=== PATIENT | male | born 1950 | race Caucasian/White ===

== ENCOUNTER → 2017-01-03 | Outpatient (CLI) | payer MEDICARE, BC | LOC: MW.CHGS 08:00 | PROVIDERS: ATTEND Surgery | DX: A63.0 Anogenital (venereal) warts (principal) | CPT/HCPCS: G0463 ==

== ENCOUNTER → 2017-01-09 | Outpatient (CLI) | payer MEDICARE, BC ==
[2017-01-09 15:09] LABS: CHLORIDE,CL 103 mmol/L (98-110); SODIUM,NA 140 mmol/L (136-146)
== END | disposition home or self-care (01) ==
LOC: MW.LAB 14:13
PROVIDERS: ATTEND Internal Medicine
DX: I10 Essential (primary) hypertension (principal); E66.9 Obesity, unspecified; I70.1 Atherosclerosis of renal artery
CPT/HCPCS: 36415; 80069; 84244

== ENCOUNTER → 2017-01-30 | Outpatient (CLI) | payer MEDICARE, BC ==
[2017-01-30 15:31] LABS: CHLORIDE,CL 107 mmol/L (98-110); SODIUM,NA 142 mmol/L (136-146)
== END | disposition home or self-care (01) ==
LOC: MW.CHIM 14:39
PROVIDERS: ATTEND Internal Medicine
DX: I10 Essential (primary) hypertension (principal); E66.9 Obesity, unspecified; R73.09 Other abnormal glucose; G47.33 Obstructive sleep apnea (adult) (pediatric); N52.9 Male erectile dysfunction, unspecified; E66.01 Morbid (severe) obesity due to excess calories
CPT/HCPCS: 36415; 80053; 80061; 83036; 99214

== ENCOUNTER 2017-08-28 07:26 | Day surgery (SDC) | payer MEDICARE, BC ==
[2017-08-28] MEDS ORDERED: Bupivacaine 0.25%/EPINEPHrine 1:200,000 10 ML SDV ONE (07:28)
[2017-08-28] MEDS ORDERED: Lidocaine 2% 5 ML SDV ONE (07:29)
[2017-08-28] MEDS ORDERED: fentaNYL 100 MCG/2 ML SDV ONE ×2 (07:30→09:49)
[2017-08-28] MEDS ORDERED: Propofol 200 MG/20 ML SDV ONE ×2 (07:30→08:48)
[2017-08-28] MEDS ORDERED: Midazolam 1 MG/ML 2 ML SDV ONE (07:30)
[2017-08-28] MEDS ORDERED: ceFAZolin 2 GM in Premix Bag 1 BAG IV ONE (08:00)
[2017-08-28] MEDS ORDERED: Lactated Ringers 1,000 ML IV SCH (08:00)
[2017-08-28] MEDS ORDERED: Bupivacaine 0.25%/EPINEPHrine 1:200,000 10 ML SDV INJECT ONE (08:00)
[2017-08-28] MEDS ORDERED: Acetaminophen/HYDROcodone 325-5 MG Tab PO PRN (08:00)
--- NOTE | 2017-08-28 08:07 | PCM.PREANE ---
Preanesthetic Assessment - Anesthesia/Transfusion/Family Hx Anesthesia History: Prior Anesthesia Without Reaction Family History of Anesthesia Reaction: No Transfusion History: No Prior Transfusion(s) - Review of Systems General: No Symptoms Pulmonary: No Symptoms Cardiovascular: No Symptoms Gastrointestinal: No Symptoms Neurological: No Symptoms Other: Reports: None - Physical Assessment NPO Status Date: 08/27/17 NPO Status Time: 22:30 O2 Sat by Pulse Oximetry: 96 Respiratory Rate: 18 Vital Signs: Last Vital Signs Temp 36.6 C 08/28/17 07:42 Pulse 69 08/28/17 07:42 Resp 18 08/28/17 07:42 BP 184/94 H 08/28/17 07:42 Pulse Ox 96 08/28/17 07:42 Height: 1.87 m Weight: 127.913 kg ASA Class: 3 Mental Status: Alert & Oriented x3 Airway Class: Mallampati = 2 Dentition: Reports: Normal Dentition ROM/Head Extension: Full Lungs: Clear to Auscultation, Normal Respiratory Effort Cardiovascular: Regular Rate, Regular Rhythm - Allergies Allergies/Adverse Reactions: Allergies Allergy/AdvReac Type Severity Reaction Status Date / Time labetalol Allergy Dizziness Verified 11/22/16 09:02 tamsulosin Allergy Dizziness Verified 11/22/16 09:02 - Anesthesia Plan Pre-Op Medication Ordered: None - Acknowledgements Anesthesia Type Planned: General Anesthesia Pt an Appropriate Candidate for the Planned Anesthesia: Yes Alternatives and Risks of Anesthesia Discussed w Pt/Guardian: Yes Pt/Guardian Understands and Agrees with Anesthesia Plan: Yes Additional Comments: BP up this am, plan: GET PreAnesthesia Questionnaire - Past Health History Medical/Surgical History: Denies Medical/Surgical History HEENT History: Reports: Other (See Below) Other HEENT History: wears glasses Cardiovascular History: Reports: Hypertension Respiratory History: Reports: Sleep Apnea Other Respiratory History: uses BiPAP Gastrointestinal History: Reports: Colon Polyp Genitourinary History: Reports: BPH Neurological History: Reports: None Psychiatric History: Reports: None Endocrine/Metabolic History: Reports: Obesity/BMI 30+ Hematologic History: Reports: None Oncologic (Cancer) History: Reports: None Dermatologic History: Reports: Other (See Below) Other Dermatologic History: acne - Past Surgical History Head Surgeries/Procedures: Reports: None GI Surgical History: Reports: Colonoscopy, Hernia, Inguinal, Hernia Repair/Other Other GI Surgeries/Procedures: colotomy - SUBSTANCE USE Smoking Status *Q: Never Smoker Second Hand Smoke Exposure: No Days Per Week of Alcohol Use: 3 Number of Drinks Per Day: 3 Total Drinks Per Week: 9 Recreational Drug Use History: No - HOME MEDS Home Medications: Home Meds Ramipril [Altace] 2 tab PO DAILY 11/24/14 [History] amLODIPine Besylate [Amlodipine Besylate] 1 tab PO DAILY 11/24/14 [History] Aspirin [[place] Aspirin] 81 mg PO DAILY 11/22/16 [History] Multivit-Min/FA/Lycopene/Lut [Centrum Silver Tablet] 1 tab PO DAILY 11/22/16 [ History] cloNIDine HCl [Catapres] 0.2 mg PO TID 11/22/16 [History] Clindamycin Phosphate [Cleocin] 1 applic TOP ASDIRECTED PRN 08/26/17 [History] Doxazosin Mesylate [Cardura] 1 mg PO BEDTIME 08/26/17 [History] Viagra 0.25 - 0.5 tab PO ASDIRECTED PRN 08/26/17 [History] - CURRENT (IN HOUSE) MEDS Current Meds: Current Medications Hydrocodone Bitart/Acetaminophen ([place] 325-5 Mg) 1 tab PO Q4H PRN PRN Reason: Pain Cefazolin Sodium/Dextrose 2 gm (/ Premix) 50 mls @ 100 mls/hr IV ONETIME ONE Stop: 08/28/17 08:29 Lactated Ringer's (Ringers, Lactated) 1,000 mls @ 125 mls/hr IV ASDIRECTED LUIS ENRIQUE Last Admin: 08/28/17 07:44 Dose: 125 mls/hr Discontinued Medications Bupivacaine HCl/Epinephrine Bitart ([place] 0.25%/Epinephrine 1:200,000) 10 ml INJECT ONETIME ONE Stop: 08/28/17 08:01 Bupivacaine HCl/Epinephrine Bitart ([place]aine 0.25%/Epinephrine 1:200,000) Confirm Administered Dose 20 ml .ROUTE .STK-MED ONE Stop: 08/28/17 07:29 Fentanyl (Sublimaze) Confirm Administered Dose 200 mcg .ROUTE .STK-MED ONE Stop: 08/28/17 07:31 Lidocaine (Xylocaine-Mpf 2%) Confirm Administered Dose 10 ml .ROUTE .STK-MED ONE Stop: 08/28/17 07:30 Midazolam HCl (Versed 1 Mg/Ml) Confirm Administered Dose 2 mg .ROUTE .STK-MED ONE Stop: 08/28/17 07:31 Propofol (Diprivan 20 Ml) Confirm Administered Dose 400 mg .ROUTE .STK-MED ONE Stop: 08/28/17 07:31
[2017-08-28] MEDS ORDERED: ePHEDrine 50 MG/ML SDV ONE (09:18)
[2017-08-28] MEDS ORDERED: fentaNYL 100 MCG/2 ML SDV IVPUSH PRN (10:20)
--- NOTE | 2017-08-28 10:34 | PCM.POSTAN ---
POST ANESTHESIA ASSESSMENT - MENTAL STATUS Mental Status: Alert, Oriented - RESPIRATORY Respiratory Status: Respiratory Rate WNL, Airway Patent, O2 Saturation Stable - CARDIOVASCULAR CV Status: Pulse Rate WNL, Blood Pressure Stable - GASTROINTESTINAL GI Status: No Symptoms - PAIN Pain Score: 0 - POST OP HYDRATION Hydration Status: Adequate & Stable
[2017-08-28 11:58] VITALS: BP 164/72
--- NOTE | 2017-08-28 12:28 | PCM48HPAN ---
Post Anesthesia Note - EVALUATION WITHIN 48HRS OF ANESTHETIC Vital Signs in Normal Range: Yes Patient Participated in Evaluation: Yes Respiratory Function Stable: Yes Airway Patent: Yes Cardiovascular Function Stable: Yes Hydration Status Stable: Yes Pain Control Satisfactory: Yes Nausea and Vomiting Control Satisfactory: Yes Mental Status Recovered: Yes
--- NOTE | 2017-09-03 08:05 | PCM.OPNOTE ---
- General Post-Op/Procedure Note Date of Surgery/Procedure: 08/28/17 Operative Procedure(s): excision of rhinophyma Pre Op Diagnosis: rhinophyma Post-Op Diagnosis: Same Anesthesia Technique: General ET Tube Primary Surgeon: Ann Darden Manufacturing Helper: Radha Otero Condition: Good Free Text/Narrative:: [id number]
--- NOTE | 2017-09-03 08:19 | OR ---
SURGEON: MARYBEL HWANG MD DATE OF PROCEDURE: 08/28/2017 PREOPERATIVE DIAGNOSIS: Rhinophyma of the nose, significant, causing obstruction of the nasal airway. POSTOPERATIVE DIAGNOSIS: Rhinophyma of the nose, significant, causing obstruction of the nasal airway. PROCEDURE: Excision of nasal rhinophyma with tangential excision. MANGA ARTIST: KACEY Ybarra. ANESTHESIA: General ET tube. INDICATIONS: Mr. 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 He does use BiPAP in order to accommodate for this. He has had significant infections and it drains constantly. Risks and benefits of excision of the rhinophyma were discussed with him and he was in agreement to proceed. Risks were including, but not limited to, bleeding, infection, damage to underlying or overlying structures, possible need for future interventions, possible scarring. PROCEDURE IN DETAIL: After informed consent was obtained and placed on the chart, the patient was brought to the operating theater and laid in the supine position. After adequate general anesthetic was obtained, a time-out was completed to confirm side and site, and the area was infiltrated with local anesthesia. Once adequately infiltrated, attention was then paid to tangential excision of the rhinophyma with a 10 and 15 blade to sculpt appropriately in a stepwise fashion. Once adequately excised and contour was appreciated, meticulous hemostasis was obtained using Bovie electrocautery. Once adequately treated, the wound was then dressed with ointment and Tegaderm for coverage. The patient tolerated this well without exposure of underlying structures. All counts and needles were correct at the end of the case. FOLLOWUP INSTRUCTIONS: The patient will see us in 10 to 14 days or sooner if any problems, questions, or concerns.He was given a script for pain control and wound care instructions. HEGGTHE / MODL /[id number] TATIANNA
== END 2017-08-28 11:55 | disposition home or self-care (01) ==
LOC: MW.SDS 07:26
PROVIDERS: ATTEND Plastic Surgery
DX: L71.1 Rhinophyma (principal); J34.89 Other specified disorders of nose and nasal sinuses; N40.0 Benign prostatic hyperplasia without lower urinary tract symptoms; I10 Essential (primary) hypertension; E66.9 Obesity, unspecified; G47.30 Sleep apnea, unspecified; Z88.8 Allergy status to other drugs, medicaments and biological substances; Z79.82 Long term (current) use of aspirin; Z79.899 Other long term (current) drug therapy; Z98.890 Other specified postprocedural states; Z72.0 Tobacco use; Z68.30 Body mass index [BMI] 30.0-30.9, adult
CPT/HCPCS: 30120; J2250; J3010; J7120; 00300; J2704

== ENCOUNTER 2018-11-28 10:44 | Day surgery (SDC) | payer MEDICARE, BC ==
[~2018-11-28 10:44] MED LIST: Lactated Ringers 1,000 ML IV SCH
--- NOTE | 2018-11-28 11:38 | PCM.PREANE ---
Preanesthetic Assessment - Anesthesia/Transfusion/Family Hx Anesthesia History: Prior Anesthesia Without Reaction Family History of Anesthesia Reaction: No Transfusion History: No Prior Transfusion(s) Intubation History: Unknown - Review of Systems General: No Symptoms Pulmonary: No Symptoms Cardiovascular: No Symptoms Gastrointestinal: No Symptoms, Other (h/o multiple colon polyps and family h/o colon cancer) Neurological: No Symptoms Other: Reports: None - Physical Assessment O2 Sat by Pulse Oximetry: 94 Respiratory Rate: 18 Vital Signs: Last Vital Signs Temp 36.6 C 11/28/18 11:33 Pulse 70 11/28/18 11:33 Resp 18 11/28/18 11:33 BP 185/79 H 11/28/18 11:33 Pulse Ox 94 L 11/28/18 11:33 Height: 1.85 m Weight: 130.181 kg ASA Class: 2 Mental Status: Alert & Oriented x3 Airway Class: Mallampati = 2 Dentition: Reports: Normal Dentition Thyro-Mental Finger Breadths: 3 Mouth Opening Finger Breadths: 2 ROM/Head Extension: Full Lungs: Clear to Auscultation, Normal Respiratory Effort Cardiovascular: Regular Rate, Regular Rhythm - Allergies Allergies/Adverse Reactions: Allergies Allergy/AdvReac Type Severity Reaction Status Date / Time labetalol Allergy Dizziness Verified 11/25/18 10:24 tamsulosin Allergy Cannot Verified 11/25/18 10:24 Remember - Blood Blood Available: No - Anesthesia Plan Pre-Op Medication Ordered: None - Acknowledgements Anesthesia Type Planned: MAC Pt an Appropriate Candidate for the Planned Anesthesia: Yes Alternatives and Risks of Anesthesia Discussed w Pt/Guardian: Yes Pt/Guardian Understands and Agrees with Anesthesia Plan: Yes PreAnesthesia Questionnaire - Past Health History Medical/Surgical History: Denies Medical/Surgical History HEENT History: Reports: Other (See Below) Other HEENT History: wears glasses Cardiovascular History: Reports: Hypertension Respiratory History: Reports: Sleep Apnea Other Respiratory History: uses BiPAP Gastrointestinal History: Reports: Colon Polyp Genitourinary History: Reports: BPH Musculoskeletal History: Reports: Back Pain, Chronic Neurological History: Reports: None Psychiatric History: Reports: None Endocrine/Metabolic History: Reports: Obesity/BMI 30+, Other (See Below) (h/o elevated glucose level) Hematologic History: Reports: None Oncologic (Cancer) History: Reports: None Dermatologic History: Reports: Other (See Below) Other Dermatologic History: acne - Past Surgical History Head Surgeries/Procedures: Reports: None HEENT Surgical History: Reports: Naso-Sinus Surgery Other HEENT Surgeries/Procedures: Rhinoplasty GI Surgical History: Reports: Colonoscopy (x2), Hernia, Inguinal, Hernia Repair/ Other, Other (See Below) Other GI Surgeries/Procedures: Laparotony-colotomy with removal of colon polyps , Incisional hernia repair - SUBSTANCE USE Smoking Status *Q: Never Smoker Recreational Drug Use History: No - HOME MEDS Home Medications: Home Meds Ramipril [Altace] 20 mg PO DAILY 11/24/14 [History] amLODIPine Besylate [Amlodipine Besylate] 10 mg PO QAM 11/24/14 [History] Aspirin [[place] Aspirin EC] 81 mg PO DAILY 11/22/16 [History] Multivit-Min/FA/Lycopene/Lut [Centrum Silver Tablet] 1 tab PO DAILY 11/22/16 [ History] cloNIDine HCl [Catapres] 0.2 mg PO TID 11/22/16 [History] Clindamycin Phosphate [Cleocin] 1 applic TOP ASDIRECTED PRN 08/26/17 [History] Sildenafil Citrate [Sildenafil] 100 mg PO ASDIRECTED PRN 11/25/18 [History] - CURRENT (IN HOUSE) MEDS Current Meds: Current Medications Lactated Ringer's (Ringers, Lactated) 1,000 mls @ 125 mls/hr IV ASDIRECTED LUIS ENRIQUE
[2018-11-28] MEDS ORDERED: Midazolam 1 MG/ML 2 ML SDV ONE (13:32)
[2018-11-28] MEDS ORDERED: fentaNYL 100 MCG/2 ML SDV ONE (13:33)
[2018-11-28] MEDS ORDERED: Propofol 200 MG/20 ML SDV ONE (13:35)
--- NOTE | 2018-11-28 14:30 | PCM.POSTAN ---
POST ANESTHESIA ASSESSMENT - MENTAL STATUS Mental Status: Alert, Oriented - RESPIRATORY Respiratory Status: Respiratory Rate WNL, Airway Patent, O2 Saturation Stable - CARDIOVASCULAR CV Status: Pulse Rate WNL, Blood Pressure Stable - GASTROINTESTINAL GI Status: No Symptoms - PAIN Pain Score: 1 - POST OP HYDRATION Hydration Status: Adequate & Stable - OBSERVATIONS Free Text/Narrative:: no anesthesia problems
--- NOTE | 2018-11-28 14:37 | PCM.OPNOTE ---
- General Post-Op/Procedure Note Date of Surgery/Procedure: 11/28/18 Operative Procedure(s): Colonoscopy with biopsy and tattooing large distal transverse colon polyp. Rectal polypectomies. Pre Op Diagnosis: Personal history of colon polyps. Family history of colon cancer. Post-Op Diagnosis: Adenomatous, transverse colon polyp. Sigmoid diverticulosis. Rectal polyps. Anesthesia Technique: MAC (ASA II) Primary Surgeon: Sharad Lewis Condition: Good Free Text/Narrative:: DICTATION [id number] CPT CODE [id number]
[2018-11-28] MEDS ORDERED: Lactated Ringers 1,000 ML IV SCH (14:45)
--- NOTE | 2018-11-28 15:01 | PCM48HPAN ---
Post Anesthesia Note - EVALUATION WITHIN 48HRS OF ANESTHETIC Vital Signs in Normal Range: Yes Patient Participated in Evaluation: Yes Respiratory Function Stable: Yes Airway Patent: Yes Cardiovascular Function Stable: Yes Hydration Status Stable: Yes Pain Control Satisfactory: Yes Nausea and Vomiting Control Satisfactory: Yes Mental Status Recovered: Yes Resp Rate: 18 - COMMENTS/OBSERVATIONS Free Text/Narrative:: no anesthesia problems
--- NOTE | 2018-11-28 15:30 | OR ---
SURGEON: Sharad Lewis M.D. DATE OF PROCEDURE: 11/28/2018 OPERATIONS PERFORMED: Colonoscopy with biopsy of large transverse colon polyp and rectal polypectomies x2. ANESTHESIA: MAC. ASA CLASSIFICATION: II. PREOPERATIVE DIAGNOSES: 1. Personal history of colon polyps. 2. Family history of colon cancer. 3. Family history of colitis. POSTOPERATIVE DIAGNOSIS: Diverticulosis. DESCRIPTION OF PROCEDURE: The patient was taken to the endoscopy room and positioned on the endoscopy table in the left lateral decubitus position. Time-out was called for appropriate identification of the patient and procedure. Monitored anesthesia care was provided. The colonoscope was inserted into the rectum and advanced with minimal difficulty to the cecum where the colonoscope was retroflexed to visualize the ascending colon from below. The colonoscope was then straightened and slowly withdrawn. Cecum had been identified by internal landmarks and external pressure. The cecum, ascending colon, proximal mid transverse colon showed no tumors, polyps, diverticula, or angiodysplastic changes. One large polyp was encountered in the distal transverse colon. Despite multiple maneuvers, I could never satisfactorily or safely place the snare electrocautery around the polyp to try and remove it. It does appear to have quite a large stalk and I did not feel it was safe to do. He may well require either another colotomy and polypectomy or possibly saline injection polypectomy, which I think it could be done in [place]. Multiple biopsies were obtained and this area was tattooed for easier identification. The remainder of the transverse colon, splenic flexure, and descending colon showed no other tumors, polyps, diverticula, or angiodysplastic changes. Sigmoid colon demonstrates numerous diverticula. No stricture, spasm, or bleeding was noted. The colonoscope was then withdrawn to the rectum where 3 or 4 small polyps were encountered. These were removed with cold biopsy forceps and sent as one specimen. None of these polyps were larger than 2 mm in size. The colonoscope was then retroflexed to visualize the anal orifice from above. No tumors, polyps, or acute hemorrhoidal changes were noted. The colonoscope was then straightened, the rectum aspirated, and the colonoscope removed. The patient tolerated the procedure well. He will come back to the office to discuss the biopsy reports and for referral to a larger center that perhaps can still do a colonoscopic saline injection polypectomy. VANNESSA / VI /[id number]
[2018-11-28 16:24] VITALS: BP 138/72
== END 2018-11-28 15:05 | disposition home or self-care (01) ==
LOC: MW.SDS 10:44
PROVIDERS: ATTEND Surgery
DX: Z12.11 Encounter for screening for malignant neoplasm of colon (principal); D12.3 Benign neoplasm of transverse colon; K63.5 Polyp of colon; K62.1 Rectal polyp; K57.30 Diverticulosis of large intestine without perforation or abscess without bleeding; I10 Essential (primary) hypertension; N40.0 Benign prostatic hyperplasia without lower urinary tract symptoms; E66.9 Obesity, unspecified; Z68.37 Body mass index [BMI] 37.0-37.9, adult; Z86.010 Personal history of colon polyps; Z79.82 Long term (current) use of aspirin; Z79.899 Other long term (current) drug therapy; Z80.0 Family history of malignant neoplasm of digestive organs; Z83.79 Family history of other diseases of the digestive system; Z88.8 Allergy status to other drugs, medicaments and biological substances
CPT/HCPCS: 45380; 45381; J2250; J2704; J3010

== ENCOUNTER 2020-07-16 12:15 | Emergency (ER) | payer MEDICARE, BC ==
[2020-07-16] MEDS ORDERED: Diphtheria,Pertussis(Acell),Tetanus Vaccine 0.5 ML Syringe IM ONE (12:50)
[2020-07-16] MEDS ORDERED: Lidocaine 1% with EPINEPHrine 1:100,000 20 ML MDV INJECT ONE (13:26)
--- NOTE | 2020-07-16 13:47 | EDM.PDOC ---
<Honorio Osei - Last Filed: 07/16/20 13:45> ED HPI GENERAL MEDICAL PROBLEM - General Chief Complaint: Laceration Stated Complaint: CUT LT ELBOW Time Seen by Provider: 07/16/20 12:25 left elbow Pain Score (Numeric/FACES): 1 - Related Data Allergies Allergy/AdvReac Type Severity Reaction Status Date / Time labetalol Allergy Dizziness Verified 07/16/20 12:48 tamsulosin Allergy Cannot Verified 07/16/20 12:48 Remember Home Meds: Home Meds amLODIPine Besylate [Amlodipine Besylate] 10 mg PO QAM 11/24/14 [History] ramipriL [Altace] 20 mg PO DAILY 11/24/14 [History] Aspirin [[place] Aspirin EC] 81 mg PO DAILY 11/22/16 [History] Multivit-Min/FA/Lycopen/Lutein [Centrum Silver Tablet] 1 tab PO DAILY 11/22/16 [History] cloNIDine HCL [Catapres] 0.2 mg PO TID 11/22/16 [History] Clindamycin Phosphate [Cleocin] 1 applic TOP ASDIRECTED PRN 08/26/17 [History] Sildenafil Citrate 100 mg PO ASDIRECTED PRN 11/25/18 [History] Past Medical History - Past Health History Medical/Surgical History: Denies Medical/Surgical History HEENT History: Reports: Other (See Below) Other HEENT History: wears glasses Cardiovascular History: Reports: Hypertension Respiratory History: Reports: Sleep Apnea Other Respiratory History: uses BiPAP Gastrointestinal History: Reports: Colon Polyp Genitourinary History: Reports: BPH Musculoskeletal History: Reports: Back Pain, Chronic Neurological History: Reports: None Psychiatric History: Reports: None Endocrine/Metabolic History: Reports: Obesity/BMI 30+, Other (See Below) Hematologic History: Reports: None Oncologic (Cancer) History: Reports: None Dermatologic History: Reports: Other (See Below) Other Dermatologic History: acne - Past Surgical History Head Surgeries/Procedures: Reports: None HEENT Surgical History: Reports: Naso-Sinus Surgery Other HEENT Surgeries/Procedures: Rhinoplasty GI Surgical History: Reports: Colonoscopy, Hernia, Inguinal, Hernia Repair/Other, Other (See Below) Other GI Surgeries/Procedures: Laparotony-colotomy with removal of colon polyps, Incisional hernia repair Social & Family History - Tobacco Use Smoking Status *Q: Never Smoker - Recreational Drug Use Recreational Drug Use: No Course - Vital Signs Text/Narrative:: Patient was seen by me the wound was anesthetized with 10 mils of 1% lidocaine I then irrigated the wound copiously with normal saline explored it it was then closed with 6 40 simple interrupted sutures no complications patient be discharged home return to the ED in 10 days for suture removal return sooner if redness swelling or pus occurs Departure - Departure Time of Disposition: 13:46 Disposition: Home, Self-Care 01 Condition: Good Clinical Impression: Laceration of elbow Qualifiers: Encounter type: initial encounter Laterality: left Qualified Code(s): S51.012A - Laceration without foreign body of left elbow, initial encounter - Discharge Information *PRESCRIPTION DRUG MONITORING PROGRAM REVIEWED*: Not Applicable *COPY OF PRESCRIPTION DRUG MONITORING REPORT IN PATIENT HARPAL: Not Applicable Instructions: Sutures, [place], or Adhesive Wound Closure, [id number] Referrals: Baldo Carpio MD [Primary Care Provider] - Forms: ED Department Discharge Additional Instructions: The following information is given to patients seen in the emergency department who are being discharged to home. This information is to outline your options for follow-up care. We provide all patients seen in our emergency department with a follow-up referral. The need for follow-up, as well as the timing and circumstances, are variable depending upon the specifics of your emergency department visit. If you don't have a primary care physician on staff, we will provide you with a referral. We always advise you to contact your personal physician following an emergency department visit to inform them of the circumstance of the visit and for follow-up with them and/or the need for any referrals to a consulting specialist. The emergency department will also refer you to a specialist when appropriate. This referral assures that you have the opportunity for follow-up care with a specialist. All of these measure are taken in an effort to provide you with optimal care, which includes your follow-up. Under all circumstances we always encourage you to contact your private physician who remains a resource for coordinating your care. When calling for follow-up care, please make the office aware that this follow-up is from your recent emergency room visit. If for any reason you are refused follow-up, please contact the [facility] Emergency Department at and asked to speak to the emergency department charge nurse. Return to the ED in 10 days for suture removal return earlier if there is redness swelling or pus in the wound 1. Keep the area clean and dry. Continue to monitor for signs of infection as discussed. Sutures to be removed in 7-10 days. 2. Tylenol and/or ibuprofen as directed and as needed for pain management and discomfort. 3. Please follow-up with your primary care provider as discussed. Return to the ED as needed and as discussed. Sepsis Event Note (ED) - Evaluation Sepsis Screening Result: No Definite Risk <Noemi,Melissa - Last Filed: 07/16/20 18:09> ED HPI GENERAL MEDICAL PROBLEM - General Source of Information: Reports: Patient History Limitations: Reports: No Limitations - History of Present Illness INITIAL COMMENTS - FREE TEXT/NARRATIVE: HISTORY AND PHYSICAL: History of present illness: Patient is a 70-year-old male who presents to the ED today with concern of left elbow laceration that occurred just prior to arrival to the ED. Patient states he is not up-to-date on his tetanus. 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 Patient states that he applied pressure to the area immediately and came to the ED. Patient denies any falls or head trauma. Patient denies any other symptoms or concerns. Patient denies fever, chills, chest pain, shortness of breath, or cough. Denies headache, neck stiff ness, change in vision, syncope, or near syncope. Denies nausea, vomiting, abdominal pain, diarrhea, constipation, or dysuria. Has not noted any blood in urine or stool. Patient has been eating and drinking appropriately. Review of systems: As per history of present illness and below otherwise all systems reviewed and negative. Past medical history: As per history of present illness and as reviewed below otherwise noncontribu tory. Surgical history: As per history of present illness and as reviewed below otherwise noncontributory. Social history: See social history for further information Family history: As per history of present illness and as reviewed below otherwise noncontributory. Physical exam: General: Patient is alert, oriented, and in no acute distress. Patient sitting comfortably on exam table. HEENT: Atraumatic, normocephalic, pupils equal and reactive bilaterally, negative for conjunctival pallor or scleral icterus, mucous membranes moist, TMs normal bilaterally, throat clear, neck supple, nontender, trachea midline. No drooling or trismus noted. No meningeal signs. No hot potato voice noted. Lungs: Clear to auscultation, breath sounds equal bilaterally, chest nontender. Heart: S1S2, regular rate and rhythm without overt murmur Abdomen: Soft, nondistended, nontender. Negative for masses or hepatosplenomegaly. Negative for costovertebral tenderness. Pelvis: Stable nontender. Genitourinary: Deferred. Rectal: Deferred. Skin: Intact, warm, dry. No lesions or rashes noted. Extremities: There is a 4 cm subcutaneous laceration of the posterior left elbow without bleeding. Patient has full range of motion of the complete left upper extremity without pain or difficulty. Radial pulses are grossly intact with capillary refill less than 2 seconds. Otherwise, atraumatic, negative for cords or calf pain. Neurovascular unremarkable. Neuro: Awake, alert, oriented. Cranial nerves II through XII unremarkable. Cerebellum unremarkable. Motor and sensory unremarkable throughout. Exam nonfocal. Notes: Discussed importance for follow-up with primary care provider. Voices understanding and is agreeable to plan of care. Denies any further questions or concerns at this time. Diagnostics: None (Xray offered but patient declines) Therapeutics: Sutures (see Dr. Osei procedure note), tdap, lidocaine w epi Prescription: None Impression: Left forearm laceration Plan: 1. Keep the area clean and dry. Continue to monitor for signs of infection as discussed. Sutures to be removed in 7-10 days. 2. Tylenol and/or ibuprofen as directed and as needed for pain management and discomfort. 3. Please follow-up with your primary care provider as discussed. Return to the ED as needed and as discussed. Definitive disposition and diagnosis as appropriate pending reevaluation and review of above. ED ROS GENERAL - Review of Systems Review Of Systems: Comprehensive ROS is negative, except as noted in HPI. ED EXAM, SKIN/RASH Exam: See Below (see dictation) Course - Vital Signs Last Recorded V/S: Last Vital Signs Temp 95.9 F L 07/16/20 14:08 Pulse 59 L 07/16/20 14:08 Resp 16 07/16/20 14:08 BP 163/89 H 07/16/20 14:08 Pulse Ox 96 07/16/20 14:08 - Orders/Labs/Meds Meds: Medications Discontinued Medications Generic Name Dose Route Start Last Admin Trade Name Sam PRN Reason Stop Dose Admin Diphtheria/Tetanus/Acell Pertussis 0.5 ml 07/16/20 12:50 07/16/20 12:59 Adacel IM 07/16/20 12:51 0.5 ml .ONCE ONE Administration Lidocaine HCl Confirm 07/16/20 13:31 07/16/20 16:44 Xylocaine-Mpf 1% Administered 07/16/20 13:32 Not Given Dose 10 ml .ROUTE .STK-MED ONE Lidocaine HCl 10 ml 07/16/20 13:55 07/16/20 16:45 Xylocaine-Mpf 1% INJECT 07/16/20 13:56 10 ml ONETIME ONE Administration Lidocaine/Epinephrine 20 ml 07/16/20 13:26 07/16/20 16:44 Xylocaine 1% With Epinephrine 1:100,000 INJECT 07/16/20 13:27 Not Given ONETIME ONE Sepsis Event Note (ED) - Focused Exam Vital Signs: Vital Signs Temp Pulse Resp BP Pulse Ox 07/16/20 14:08 95.9 F L 59 L 16 163/89 H 96 07/16/20 12:37 96.5 F L 66 16 143/91 H 95
[2020-07-16 14:09] VITALS: BP 163/89; PULSE 59
== END 2020-07-16 14:11 | disposition home or self-care (01) ==
LOC: MW.ED 12:15
DX: S51.012A Laceration without foreign body of left elbow, initial encounter (principal); I10 Essential (primary) hypertension; E66.9 Obesity, unspecified; Z68.36 Body mass index [BMI] 36.0-36.9, adult; Z88.8 Allergy status to other drugs, medicaments and biological substances; Z79.82 Long term (current) use of aspirin; Z79.899 Other long term (current) drug therapy; Z23 Encounter for immunization; W26.8XXA Contact with other sharp object(s), not elsewhere classified, initial encounter
CPT/HCPCS: 12002; 90471; 90715; 99282; J2001

== ENCOUNTER 2021-01-06 20:27 | Inpatient (IN) | payer MEDICARE, BC ==
--- NOTE | 2021-01-06 20:42 | EDM.PDOC ---
ED HPI GENERAL MEDICAL PROBLEM - General Chief Complaint: Abdominal Pain Stated Complaint: POSSIBLE FOOD POISIONING, STOMACH PAIN, PRESSURE Time Seen by Provider: 01/06/21 20:29 Source of Information: Reports: Patient History Limitations: Reports: No Limitations - History of Present Illness INITIAL COMMENTS - FREE TEXT/NARRATIVE: 70-year-old male past medical history hypertension, hyperlipidemia, remote history of unspecified colon surgery presents for 2 days of nausea, vomiting, diarrhea, abdominal cramping pain. Patient assumed initially that it was just food poisoning. He started with nausea and diffuse abdominal cramping pains. He then last night began to develop a couple episodes of vomiting as well as watery diarrhea. Symptoms improved throughout the day and then came back this evening. He denies chest pain, shortness of breath, fevers, dysuria. He does note that he has been urinating less frequently throughout the day and feels dehydrated. He has tried "that chalky medicine that you eat" as well as Colace which do not seem to be improving symptoms. abdomen Pain Score (Numeric/FACES): 7 - Related Data Allergies Allergy/AdvReac Type Severity Reaction Status Date / Time labetalol Allergy Dizziness Verified 01/06/21 20:42 tamsulosin Allergy Cannot Verified 01/06/21 20:42 Remember Home Meds: Home Meds amLODIPine Besylate [Amlodipine Besylate] 10 mg PO QAM 11/24/14 [History] ramipriL [Altace] 20 mg PO DAILY 11/24/14 [History] Aspirin [[place] Aspirin EC] 81 mg PO DAILY 11/22/16 [History] Multivit-Min/FA/Lycopen/Lutein [Centrum Silver Tablet] 1 tab PO DAILY 11/22/16 [History] cloNIDine HCL [Catapres] 0.2 mg PO TID 11/22/16 [History] Sildenafil Citrate 100 mg PO ASDIRECTED PRN 11/25/18 [History] Past Medical History - Past Health History Medical/Surgical History: Denies Medical/Surgical History HEENT History: Reports: Other (See Below) Other HEENT History: wears glasses Cardiovascular History: Reports: Hypertension Respiratory History: Reports: Sleep Apnea Other Respiratory History: uses BiPAP Gastrointestinal History: Reports: Colon Polyp Genitourinary History: Reports: BPH Musculoskeletal History: Reports: Back Pain, Chronic Neurological History: Reports: None Psychiatric History: Reports: None Endocrine/Metabolic History: Reports: Obesity/BMI 30+, Other (See Below) Hematologic History: Reports: None Oncologic (Cancer) History: Reports: None Dermatologic History: Reports: Other (See Below) Other Dermatologic History: acne - Past Surgical History Head Surgeries/Procedures: Reports: None HEENT Surgical History: Reports: Naso-Sinus Surgery Other HEENT Surgeries/Procedures: Rhinoplasty GI Surgical History: Reports: Colonoscopy, Hernia, Inguinal, Hernia Repair/Other, Other (See Below) Other GI Surgeries/Procedures: Laparotony-colotomy with removal of colon polyps, Incisional hernia repair ED ROS GENERAL - Review of Systems Review Of Systems: Comprehensive ROS is negative, except as noted in HPI. ED EXAM, GENERAL - Physical Exam Exam: See Below Exam Limited By: No Limitations General Appearance: Alert, WD/WN, No Apparent Distress Throat/Mouth: Normal Voice, No Airway Compromise Head: Atraumatic, Normocephalic Neck: Normal Inspection Respiratory/Chest: No Respiratory Distress, Lungs Clear, Normal Breath Sounds, No Accessory Muscle Use Cardiovascular: Normal Peripheral Pulses, No Edema, Tachycardia GI/Abdominal: Soft, Distended, Other (diffuse TTP most evident in LUQ) Extremities: Normal Inspection Neurological: Alert Psychiatric: Normal Affect, Anxious Skin Exam: Warm, Dry, Intact, Normal Color #1 Interpretation EKG Date: 01/06/21 Time: 20:59 Rhythm: NSR Rate (Beats/Min): 90 [place]: LAD-Left [place] Deviation P-Wave: Present QRS: Normal ST-T: Normal QT: Normal TX/PQ Interval: 124 Comparison: NA - No Prior EKG EKG Interpretation Comments: no evidence of ischemia, normal EKG Course - Vital Signs Last Recorded V/S: Last Vital Signs Temp 98 F 01/06/21 20:39 Pulse 104 H 01/06/21 20:39 Resp 16 01/06/21 20:39 BP 176/125 H 01/06/21 20:39 Pulse Ox 95 01/06/21 20:39 - Orders/Labs/Meds Orders: Active Orders 24 hr Category Date Time Status Cardiac Monitoring [RC] . DIRECTED Care 01/06/21 20:48 Active EKG Documentation Completion [RC] STAT Care 01/06/21 20:48 Active Gastrointestinal Tube Mgmt [RC] ASDIRECTED Care 01/06/21 23:12 Ordered Pulse Oximetry [RC] ASDIRECTED Care 01/06/21 20:48 Active Chest 1V Frontal [CR] Stat Exams 01/06/21 23:12 Ordered CORONAVIRUS COVID-19 PILI [MOLEC] Stat Lab 01/06/21 23:09 Ordered Sodium Chloride 0.9% [Saline Flush] Med 01/06/21 20:48 Active 10 ml FLUSH ASDIRECTED PRN Sodium Chloride 0.9% [Saline Flush] Med 01/06/21 20:48 Active 2.5 ml FLUSH ASDIRECTED PRN NG [Nasogastric Orogastric Tube Insertion] [OM.PC] Stat Oth 01/06/21 23:12 Ordered Saline Lock Insert [OM.PC] Stat Oth 01/06/21 20:48 Ordered Medication Orders Sodium Chloride (Sodium Chloride 0.9% 10 Ml Syringe) 10 ml FLUSH ASDIRECTED PRN PRN Reason: Keep Vein Open Last Admin: 01/06/21 21:07 Dose: 10 ml Documented by: MAMIE Sodium Chloride (Sodium Chloride 0.9% 2.5 Ml Syringe) 2.5 ml FLUSH ASDIRECTED PRN PRN Reason: Keep Vein Open Last Admin: 01/06/21 21:07 Dose: 2.5 ml Documented by: MAMIE Labs: Laboratory Tests 01/06/21 01/06/21 01/06/21 Range/Units 20:52 21:05 21:05 WBC 11.65 H (4.0-11.0) K/uL RBC 5.43 (4.50-5.90) M/uL Hgb 18.0 H (13.0-17.0) g/dL Hct 49.6 (38.0-50.0) % MCV 91.3 (80.0-98.0) fL MCH 33.1 H (27.0-32.0) pg MCHC 36.3 (31.0-37.0) g/dL RDW Std Deviation 43.1 (28.0-62.0) fl RDW Coeff of Unique 13 (11.0-15.0) % Plt Count 235 (150-400) K/uL MPV 9.50 (7.40-12.00) fL Neut % (Auto) 77.6 (48.0-80.0) % Lymph % (Auto) 8.9 L (16.0-40.0) % [place] % (Auto) 13.0 (0.0-15.0) % Eos % (Auto) 0.4 (0.0-7.0) % Baso % (Auto) 0.1 (0.0-1.5) % Neut # (Auto) 9.0 H (1.4-5.7) K/uL Lymph # (Auto) 1.0 (0.6-2.4) K/uL [place] # (Auto) 1.5 H (0.0-0.8) K/uL Eos # (Auto) 0.1 (0.0-0.7) K/uL Baso # (Auto) 0.0 (0.0-0.1) K/uL Nucleated RBC % 0.0 /100WBC Nucleated RBCs # 0 K/uL Lactate 1.0 (0.20-2.00) mmol/L Sodium (136-148) mmol/L Potassium (3.5-5.1) mmol/L Chloride (98-107) mmol/L Carbon Dioxide (21.0-32.0) mmol/L BUN (7.0-18.0) mg/dL Creatinine (0.8-1.3) mg/dL Est Cr Clr Drug Dosing mL/min Estimated GFR (MDRD) ml/min Glucose (74-106) mg/dL Calcium (8.5-10.1) mg/dL Magnesium (1.8-2.4) mg/dL Total Bilirubin (0.2-1.0) mg/dL AST (15-37) IU/L ALT (14-63) IU/L Alkaline Phosphatase (46-116) U/L Troponin I (0.000-0.056) ng/mL Total Protein (6.4-8.2) g/dL Albumin (3.4-5.0) g/dL Globulin (2.6-4.0) g/dL Albumin/Globulin Ratio (0.9-1.6) Lipase (73-393) U/L Urine Color DARK YELLOW Urine Appearance SLT CLOUDY Urine pH 5.0 (5.0-8.0) Ur Specific [place] 1.025 (1.001-1.035) Urine Protein TRACE H (NEGATIVE) mg/dL Urine Glucose (UA) NEGATIVE (NEGATIVE) mg/dL Urine Ketones 15 H (NEGATIVE) mg/dL Urine Occult Blood NEGATIVE (NEGATIVE) Urine Nitrite NEGATIVE (NEGATIVE) Urine Bilirubin SMALL H (NEGATIVE) Urine Ictotest NEGATIVE Urine Urobilinogen 1.0 (<2.0) EU/dL Ur Leukocyte Esterase TRACE H (NEGATIVE) U Hyaline Cast (Auto) 1-3 (0-2/LPF) Urine RBC 0-1 (0-2/HPF) Urine WBC 6-9 (0-5/HPF) Ur Epithelial Cells FEW (NONE-FEW) Urine Bacteria FEW (NEGATIVE) Urine Mucus LIGHT (NONE-MOD) 01/06/21 Range/Units 21:05 WBC (4.0-11.0) K/uL RBC (4.50-5.90) M/uL Hgb (13.0-17.0) g/dL Hct (38.0-50.0) % MCV (80.0-98.0) fL MCH (27.0-32.0) pg MCHC (31.0-37.0) g/dL RDW Std Deviation (28.0-62.0) fl RDW Coeff of Unique (11.0-15.0) % Plt Count (150-400) K/uL MPV (7.40-12.00) fL Neut % (Auto) (48.0-80.0) % Lymph % (Auto) (16.0-40.0) % [place] % (Auto) (0.0-15.0) % Eos % (Auto) (0.0-7.0) % Baso % (Auto) (0.0-1.5) % Neut # (Auto) (1.4-5.7) K/uL Lymph # (Auto) (0.6-2.4) K/uL [place] # (Auto) (0.0-0.8) K/uL Eos # (Auto) (0.0-0.7) K/uL Baso # (Auto) (0.0-0.1) K/uL Nucleated RBC % /100WBC Nucleated RBCs # K/uL Lactate (0.20-2.00) mmol/L Sodium 139 (136-148) mmol/L Potassium 3.5 (3.5-5.1) mmol/L Chloride 101 (98-107) mmol/L Carbon Dioxide 24.4 (21.0-32.0) mmol/L BUN 19 H (7.0-18.0) mg/dL Creatinine 1.1 (0.8-1.3) mg/dL Est Cr Clr Drug Dosing 70.62 mL/min Estimated GFR (MDRD) > 60.0 ml/min Glucose 128 H (74-106) mg/dL Calcium 8.8 (8.5-10.1) mg/dL Magnesium 1.7 L (1.8-2.4) mg/dL Total Bilirubin 1.8 H (0.2-1.0) mg/dL AST 15 (15-37) IU/L ALT 29 (14-63) IU/L Alkaline Phosphatase 59 (46-116) U/L Troponin I < 0.050 (0.000-0.056) ng/mL Total Protein 8.3 H (6.4-8.2) g/dL Albumin 3.8 (3.4-5.0) g/dL Globulin 4.5 H (2.6-4.0) g/dL Albumin/Globulin Ratio 0.8 L (0.9-1.6) Lipase 89 (73-393) U/L Urine Color Urine Appearance Urine pH (5.0-8.0) Ur Specific [place] (1.001-1.035) Urine Protein (NEGATIVE) mg/dL Urine Glucose (UA) (NEGATIVE) mg/dL Urine Ketones (NEGATIVE) mg/dL Urine Occult Blood (NEGATIVE) Urine Nitrite (NEGATIVE) Urine Bilirubin (NEGATIVE) Urine Ictotest Urine Urobilinogen (<2.0) EU/dL Ur Leukocyte Esterase (NEGATIVE) U Hyaline Cast (Auto) (0-2/LPF) Urine RBC (0-2/HPF) Urine WBC (0-5/HPF) Ur Epithelial Cells (NONE-FEW) Urine Bacteria (NEGATIVE) Urine Mucus (NONE-MOD) Meds: Medications Generic Name Dose Route Start Last Admin Trade Name Freq PRN Reason Stop Dose Admin Sodium Chloride 10 ml 01/06/21 20:48 01/06/21 21:07 Sodium Chloride 0.9% 10 Ml Syringe FLUSH 10 ml ASDIRECTED PRN Administration Keep Vein Open Sodium Chloride 2.5 ml 01/06/21 20:48 01/06/21 21:07 Sodium Chloride 0.9% 2.5 Ml Syringe FLUSH 2.5 ml ASDIRECTED PRN Administration Keep Vein Open Discontinued Medications Generic Name Dose Route Start Last Admin Trade Name Sam PRN Reason Stop Dose Admin Al Hydroxide/Mg Hydroxide 15 0 ml 01/06/21 20:48 01/06/21 21:07 ml/ Lidocaine HCl 5 ml PO 01/06/21 20:49 1 each ONETIME ONE Administration Famotidine 20 mg 01/06/21 20:48 01/06/21 21:07 Famotidine 20 Mg/2 Ml Sdv IVPUSH 01/06/21 20:49 20 mg ONETIME ONE Administration Sodium Chloride 1,000 mls @ 999 mls/hr 01/06/21 20:48 01/06/21 21:07 Normal Saline IV 01/06/21 21:48 999 mls/hr .Bolus ONE Administration Iopamidol 100 ml 01/06/21 22:09 01/06/21 22:10 Iopamidol 755 Mg/Ml 500 Ml Multipack Bottle IVPUSH 01/06/21 22:10 100 ml ONETIME STA Administration Morphine Sulfate 4 mg 01/06/21 20:48 01/06/21 21:07 Morphine 4 Mg/Ml Syringe IVPUSH 01/06/21 20:49 4 mg ONETIME ONE Administration Ondansetron HCl 4 mg 01/06/21 20:48 01/06/21 21:07 Ondansetron 4 Mg/2 Ml Sdv IVPUSH 01/06/21 20:49 4 mg ONETIME ONE Administration - Re-Assessments/Exams Free Text/Narrative Re-Assessment/Exam: 01/06/21 20:52 Patient presents with abdominal pain. Will get labs and imaging. Will give IV fluid bolus, Pepcid, Zofran, morphine, GI cocktail while working up. 01/06/21 23:13 CT imaging is remarkable for small bowel obstruction. Spoke with Dr. Lewis who agrees to consult for general surgery. Spoke with Dr. Grimm who agrees to admit under hospitalist service. Will place NG tube. COVID-19 test is pending Departure - Departure Time of Disposition: 23:13 Disposition: Admitted As Inpatient 66 Condition: Good Clinical Impression: Small bowel obstruction - Discharge Information Referrals: Baldo Carpio MD [Primary Care Provider] - Forms: ED Department Discharge Sepsis Event Note (ED) - Evaluation Sepsis Screening Result: No Definite Risk - Focused Exam Vital Signs: Vital Signs Temp Pulse Resp BP Pulse Ox 01/06/21 20:39 98 F 104 H 16 176/125 H 95 - My Orders Last 24 Hours: My Active Orders 01/06/21 20:48 Cardiac Monitoring [RC] . DIRECTED EKG Documentation Completion [RC] STAT Pulse Oximetry [RC] ASDIRECTED Sodium Chloride 0.9% [Saline Flush] 10 ml FLUSH ASDIRECTED PRN Sodium Chloride 0.9% [Saline Flush] 2.5 ml FLUSH ASDIRECTED PRN Saline Lock Insert [OM.PC] Stat 01/06/21 23:09 CORONAVIRUS COVID-19 PILI [MOLEC] Stat 01/06/21 23:12 Gastrointestinal Tube Mgmt [RC] ASDIRECTED Chest 1V Frontal [CR] Stat NG [Nasogastric Orogastric Tube Insertion] [OM.PC] Stat - Assessment/Plan Last 24 Hours: My Active Orders 01/06/21 20:48 Cardiac Monitoring [RC] . DIRECTED EKG Documentation Completion [RC] STAT Pulse Oximetry [RC] ASDIRECTED Sodium Chloride 0.9% [Saline Flush] 10 ml FLUSH ASDIRECTED PRN Sodium Chloride 0.9% [Saline Flush] 2.5 ml FLUSH ASDIRECTED PRN Saline Lock Insert [OM.PC] Stat 01/06/21 23:09 CORONAVIRUS COVID-19 PILI [MOLEC] Stat 01/06/21 23:12 Gastrointestinal Tube Mgmt [RC] ASDIRECTED Chest 1V Frontal [CR] Stat NG [Nasogastric Orogastric Tube Insertion] [OM.PC] Stat
[2021-01-06] MEDS ORDERED: Morphine 4 MG/ML Syringe IVPUSH ONE (20:48)
[2021-01-06] MEDS ORDERED: Sodium Chloride 0.9% 1,000 ML IV ONE (20:48)
[2021-01-06] MEDS ORDERED: Sodium Chloride 0.9% 10 ML Syringe FLUSH PRN (20:48)
[2021-01-06] MEDS ORDERED: Ondansetron 4 MG/2 ML SDV IVPUSH ONE (20:48)
[2021-01-06] MEDS ORDERED: Famotidine 20 MG/2 ML SDV IVPUSH ONE (20:48)
[2021-01-06] MEDS ORDERED: Alum Hydrox/Mag Hydrox/Simeth 15 ML, Lidocaine 2% 5 ML PO ONE ×2 (20:48)
[2021-01-06] MEDS: Sodium Chloride 0.9% 2.5 ML Syringe FLUSH PRN (21:07)
[2021-01-06 21:33] LABS: BLOOD UREA NITROGEN,BUN 19 mg/dL (7.0-18.0); CARBON DIOXIDE,CO2 24.4 mmol/L (21.0-32.0); CHLORIDE,CL 101 mmol/L (98-107); GLUCOSE RANDOM 128 mg/dL (74-106); LIPASE 89 U/L (73-393); POTASSIUM,K 3.5 mmol/L (3.5-5.1); SODIUM,NA 139 mmol/L (136-148)
[2021-01-06] MEDS ORDERED: Iopamidol 755 MG/ML 500 ML Multipack Bottle IVPUSH STA (22:09)
--- NOTE | 2021-01-06 22:50 | CT ---
INDICATION: Abdominal pain, nausea, vomiting, diarrhea for 2 days TECHNIQUE: CT abdomen and pelvis acquired with 100 cc Isovue 370 IV contrast. COMPARISON: None FINDINGS: Lower chest: Linear atelectasis at the right lung base. Liver: Hepatic steatosis. Simple cysts in the liver. Spleen: Unremarkable. Gallbladder and bile ducts: Unremarkable. Adrenal glands: Unremarkable. Kidneys: Simple cysts on both kidneys. The largest cyst on the right kidney and measures 8.5 cm. There are bilateral nonobstructive renal stones measuring no more than 3 mm in size. GI tract and pancreas: There is a 5.9 x 4.4 cm cystic lesion which directly abuts the inferior margin of the distal gastric body. There is no discernible wall around this cystic structure. There is no mass effect on the adjacent stomach. A small portion of this cystic structure also touches the superior portion of the proximal pancreatic body. Remainder of the pancreas is normal in appearance. There are multiple loops of fluid-filled, mildly dilated small-bowel that reach a maximum diameter of 3.1 cm. A definite transition point is not identified. There does not appear to be incarceration of a small-bowel loop within any of the ventral hernias. There is no free air or pneumatosis. The more distal small bowel is collapsed as is the colon. Vascular structures: Unremarkable. Lymph nodes: Unremarkable. Miscellaneous: Status post ventral herniorrhaphy with mesh. There are multiple small ventral hernias on either side of the mesh. Some of these contain normal appearing loops of bowel. Other hernias contain only fat. Pelvic Organs: Small amount of simple free fluid in the pelvis. Bones: Unremarkable for age. IMPRESSION: Small-bowel obstruction. A definite transition point is not seen. Note that there are multiple small ventral hernias that contain bowel. The bowel obstruction does not appear to be due to incarceration of the bowel loop within one of the ventral hernias. Small amount of free fluid in the pelvis. Cystic lesion adjacent to the stomach and pancreas. 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 Recommend comparison with any prior imaging. If no prior imaging is available, consider nonemergent upper abdominal MRI for further characterization. Bilateral nonobstructive nephrolithiasis. Hepatic steatosis. Postoperative changes of ventral herniorrhaphy with mesh placement. Please note that all CT scans at this facility use dose modulation, iterative reconstruction, and/or weight-based dosing when appropriate to reduce radiation dose to as low as reasonably achievable. Dictated by Radha Muro MD @ Jan 06 2021 10:48PM Signed by Dr. Radha Muro @ Jan 06 2021 10:48PM
--- NOTE | 2021-01-06 23:55 | CR ---
Indication: NG tube placement Technique: Portable upright AP view of the chest Comparison: CT abdomen pelvis 01/06/2021 Findings/Impression: 1. Distal end of a gastric tube terminates at the gastroesophageal junction. Consider advancing by about 10 cm with follow-up abdominal radiograph to confirm adequate placement. 2. Focal opacity in the right lung base corresponds to atelectatic changes seen on CT. The lungs are otherwise clear. 3. The cardiomediastinal silhouette is normal. There is no pleural effusion or pneumothorax. Dictated by Dominguez Rolle MD @ Jan 06 2021 11:54PM Signed by Dr. Dominguez Rolle @ Jan 06 2021 11:54PM
[2021-01-07] MEDS ORDERED: Ondansetron 4 MG/2 ML SDV IVPUSH PRN (01:26)
[2021-01-07] MEDS: Sodium Chloride 0.9% 1,000 ML IV SCH ×4 (01:53→22:12)
[2021-01-07 06:43] LABS: BLOOD UREA NITROGEN,BUN 14 mg/dL (7.0-18.0); CARBON DIOXIDE,CO2 26.3 mmol/L (21.0-32.0); CHLORIDE,CL 104 mmol/L (98-107); GLUCOSE RANDOM 99 mg/dL (74-106); POTASSIUM,K 3.5 mmol/L (3.5-5.1); SODIUM,NA 142 mmol/L (136-148)
[2021-01-07] MEDS ORDERED: Magnesium Sulfate/Water 2 GM/50 ML BAG IV ONE (07:14)
--- NOTE | 2021-01-07 07:17 | PCM.HP.2 ---
H&P History of Present Illness - General Date of Service: 01/07/21 Admit Problem/Dx: Admission Diagnosis/Problem Admission Diagnosis/Problem Small bowel obstruction - History of Present Illness Initial Comments - Free Text/Narative: 70 year old male admitted to the medical unit for management of small bowel obstruction. Patient has past medical history including hypertension, hyperlipidemia past surgical history including removal of large colon polyps ventral hernia repair with past medical history of hypertension. Patient denies diabetes, or any other respiratory conditions. Patient states he began to have, abdominal pain, nausea 2 days ago on 01-05-21 and initially assumed that his symptoms were due to food poisoning. Patient states the pain increased in the last 2 days at which time he presents to the ED with nausea vomiting, abdominal pain. CT abdomenpelvis performed in the ED showed mild small bowel obstruction without a definite transition point, with no incarcerations of bowel noted. Whi te blood cell 6.0, normal lactic acid, CMP within normal limits. Hypomagnesemia noted with a magnesium of 1.7. Patient does currently take amlodipine, ramipril, clonidine for hypertension. Oral medications cannot be started due to NG tube placement. Patient started on IV enalaprilat 1.25mg for blood pressure management. Patient made n.p.o. status, start IV fluids, morphine for pain, Zofran for nausea, NG tube placed for decompression, 2 g magnesium sulfate for hypomagnesemia. abdomen Pain Score (Numeric/FACES): 7 - Related Data Allergies/Adverse Reactions: Allergies Allergy/AdvReac Type Severity Reaction Status Date / Time labetalol Allergy Dizziness Verified 01/07/21 03:32 tamsulosin Allergy Cannot Verified 01/07/21 03:32 Remember Home Medications: Home Meds amLODIPine Besylate [Amlodipine Besylate] 10 mg PO QAM 11/24/14 [History] ramipriL [Altace] 20 mg PO DAILY 11/24/14 [History] Aspirin [[place] Aspirin EC] 81 mg PO DAILY 11/22/16 [History] Multivit-Min/FA/Lycopen/Lutein [Centrum Silver Tablet] 1 tab PO DAILY 11/22/16 [History] cloNIDine HCL [Catapres] 0.2 mg PO TID 11/22/16 [History] Sildenafil Citrate 50 mg PO ASDIRECTED PRN 11/25/18 [History] Past Medical History - Past Health History Medical/Surgical History: Denies Medical/Surgical History HEENT History: Reports: Other (See Below) Other HEENT History: wears glasses Cardiovascular History: Reports: Hypertension Respiratory History: Reports: Sleep Apnea Other Respiratory History: uses BiPAP Gastrointestinal History: Reports: Colon Polyp Genitourinary History: Reports: BPH Musculoskeletal History: Reports: Back Pain, Chronic Neurological History: Reports: None Psychiatric History: Reports: None Endocrine/Metabolic History: Reports: Obesity/BMI 30+, Other (See Below) Hematologic History: Reports: None Oncologic (Cancer) History: Reports: None Dermatologic History: Reports: Other (See Below) Other Dermatologic History: acne - Past Surgical History Head Surgeries/Procedures: Reports: None HEENT Surgical History: Reports: Naso-Sinus Surgery Other HEENT Surgeries/Procedures: Rhinoplasty GI Surgical History: Reports: Colonoscopy, Hernia, Inguinal, Hernia Repair/Other, Other (See Below) Other GI Surgeries/Procedures: Laparotony-colotomy with removal of colon polyps, Incisional hernia repair Social & Family History - Tobacco Use Tobacco Use Status *Q: Never Tobacco User - Caffeine Use Caffeine Use: Reports: Coffee - Recreational Drug Use Recreational Drug Use: No H&P Review of Systems - Review of Systems: Review Of Systems: See Below General: Denies: Fever Pulmonary: Denies: Shortness of Breath, Wheezing Cardiovascular: Denies: Chest Pain Gastrointestinal: Reports: Abdominal Pain, Distension. Denies: Nausea, Vomiting Neurological: Denies: Confusion Exam - Exam Exam: See Below - Vital Signs Vital Signs: Last Vital Signs Temp 98.1 F 01/07/21 05:31 Pulse 78 01/07/21 05:31 Resp 18 01/07/21 05:31 BP 165/85 H 01/07/21 05:31 Pulse Ox 95 01/07/21 05:31 Weight: 276 lb 4.815 oz - Exam Quality Assessment: No: Supplemental Oxygen General: Alert, Oriented Lungs: Clear to Auscultation, Normal Respiratory Effort Cardiovascular: Regular Rate, Regular Rhythm GI/Abdominal Exam: Non-Tender Neuro Extensive - Mental Status: Alert, Oriented x3 - Patient Data Lab Results Last 24 hrs: Laboratory Results - last 24 hr 01/06/21 01/06/21 01/06/21 Range/Units 20:52 21:05 21:05 WBC 11.65 H (4.0-11.0) K/uL RBC 5.43 (4.50-5.90) M/uL Hgb 18.0 H (13.0-17.0) g/dL Hct 49.6 (38.0-50.0) % MCV 91.3 (80.0-98.0) fL MCH 33.1 H (27.0-32.0) pg MCHC 36.3 (31.0-37.0) g/dL RDW Std Deviation 43.1 (28.0-62.0) fl RDW Coeff of Unique 13 (11.0-15.0) % Plt Count 235 (150-400) K/uL MPV 9.50 (7.40-12.00) fL Neut % (Auto) 77.6 (48.0-80.0) % Lymph % (Auto) 8.9 L (16.0-40.0) % [place] % (Auto) 13.0 (0.0-15.0) % Eos % (Auto) 0.4 (0.0-7.0) % Baso % (Auto) 0.1 (0.0-1.5) % Neut # (Auto) 9.0 H (1.4-5.7) K/uL Lymph # (Auto) 1.0 (0.6-2.4) K/uL [place] # (Auto) 1.5 H (0.0-0.8) K/uL Eos # (Auto) 0.1 (0.0-0.7) K/uL Baso # (Auto) 0.0 (0.0-0.1) K/uL Nucleated RBC % 0.0 /100WBC Nucleated RBCs # 0 K/uL Lactate 1.0 (0.20-2.00) mmol/L Sodium (136-148) mmol/L Potassium (3.5-5.1) mmol/L Chloride (98-107) mmol/L Carbon Dioxide (21.0-32.0) mmol/L BUN (7.0-18.0) mg/dL Creatinine (0.8-1.3) mg/dL Est Cr Clr Drug Dosing mL/min Estimated GFR (MDRD) ml/min Glucose (74-106) mg/dL Calcium (8.5-10.1) mg/dL Magnesium (1.8-2.4) mg/dL Total Bilirubin (0.2-1.0) mg/dL AST (15-37) IU/L ALT (14-63) IU/L Alkaline Phosphatase (46-116) U/L Troponin I (0.000-0.056) ng/mL Total Protein (6.4-8.2) g/dL Albumin (3.4-5.0) g/dL Globulin (2.6-4.0) g/dL Albumin/Globulin Ratio (0.9-1.6) Lipase (73-393) U/L Urine Color DARK YELLOW Urine Appearance SLT CLOUDY Urine pH 5.0 (5.0-8.0) Ur Specific [place] 1.025 (1.001-1.035) Urine Protein TRACE H (NEGATIVE) mg/dL Urine Glucose (UA) NEGATIVE (NEGATIVE) mg/dL Urine Ketones 15 H (NEGATIVE) mg/dL Urine Occult Blood NEGATIVE (NEGATIVE) Urine Nitrite NEGATIVE (NEGATIVE) Urine Bilirubin SMALL H (NEGATIVE) Urine Ictotest NEGATIVE Urine Urobilinogen 1.0 (<2.0) EU/dL Ur Leukocyte Esterase TRACE H (NEGATIVE) U Hyaline Cast (Auto) 1-3 (0-2/LPF) Urine RBC 0-1 (0-2/HPF) Urine WBC 6-9 (0-5/HPF) Ur Epithelial Cells FEW (NONE-FEW) Urine Bacteria FEW (NEGATIVE) Urine Mucus LIGHT (NONE-MOD) SARS-CoV-2 RNA (PILI) (NEGATIVE) 01/06/21 01/06/21 01/07/21 Range/Units 21:05 23:10 05:48 WBC 6.51 (4.0-11.0) K/uL RBC 5.09 (4.50-5.90) M/uL Hgb 16.6 (13.0-17.0) g/dL Hct 47.1 (38.0-50.0) % MCV 92.5 (80.0-98.0) fL MCH 32.6 H (27.0-32.0) pg MCHC 35.2 (31.0-37.0) g/dL RDW Std Deviation 44.2 (28.0-62.0) fl RDW Coeff of Unique 13 (11.0-15.0) % Plt Count 215 (150-400) K/uL MPV 9.90 (7.40-12.00) fL Neut % (Auto) 54.4 (48.0-80.0) % Lymph % (Auto) 24.7 (16.0-40.0) % [place] % (Auto) 18.7 H (0.0-15.0) % Eos % (Auto) 2.0 (0.0-7.0) % Baso % (Auto) 0.2 (0.0-1.5) % Neut # (Auto) 3.5 (1.4-5.7) K/uL Lymph # (Auto) 1.6 (0.6-2.4) K/uL [place] # (Auto) 1.2 H (0.0-0.8) K/uL Eos # (Auto) 0.1 (0.0-0.7) K/uL Baso # (Auto) 0.0 (0.0-0.1) K/uL Nucleated RBC % 0.0 /100WBC Nucleated RBCs # 0 K/uL Lactate (0.20-2.00) mmol/L Sodium 139 (136-148) mmol/L Potassium 3.5 (3.5-5.1) mmol/L Chloride 101 (98-107) mmol/L Carbon Dioxide 24.4 (21.0-32.0) mmol/L BUN 19 H (7.0-18.0) mg/dL Creatinine 1.1 (0.8-1.3) mg/dL Est Cr Clr Drug Dosing 70.62 mL/min Estimated GFR (MDRD) > 60.0 ml/min Glucose 128 H (74-106) mg/dL Calcium 8.8 (8.5-10.1) mg/dL Magnesium 1.7 L (1.8-2.4) mg/dL Total Bilirubin 1.8 H (0.2-1.0) mg/dL AST 15 (15-37) IU/L ALT 29 (14-63) IU/L Alkaline Phosphatase 59 (46-116) U/L Troponin I < 0.050 (0.000-0.056) ng/mL Total Protein 8.3 H (6.4-8.2) g/dL Albumin 3.8 (3.4-5.0) g/dL Globulin 4.5 H (2.6-4.0) g/dL Albumin/Globulin Ratio 0.8 L (0.9-1.6) Lipase 89 (73-393) U/L Urine Color Urine Appearance Urine pH (5.0-8.0) Ur Specific [place] (1.001-1.035) Urine Protein (NEGATIVE) mg/dL Urine Glucose (UA) (NEGATIVE) mg/dL Urine Ketones (NEGATIVE) mg/dL Urine Occult Blood (NEGATIVE) Urine Nitrite (NEGATIVE) Urine Bilirubin (NEGATIVE) Urine Ictotest Urine Urobilinogen (<2.0) EU/dL Ur Leukocyte Esterase (NEGATIVE) U Hyaline Cast (Auto) (0-2/LPF) Urine RBC (0-2/HPF) Urine WBC (0-5/HPF) Ur Epithelial Cells (NONE-FEW) Urine Bacteria (NEGATIVE) Urine Mucus (NONE-MOD) SARS-CoV-2 RNA (PILI) NEGATIVE (NEGATIVE) 01/07/21 Range/Units 05:48 WBC (4.0-11.0) K/uL RBC (4.50-5.90) M/uL Hgb (13.0-17.0) g/dL Hct (38.0-50.0) % MCV (80.0-98.0) fL MCH (27.0-32.0) pg MCHC (31.0-37.0) g/dL RDW Std Deviation (28.0-62.0) fl RDW Coeff of Unique (11.0-15.0) % Plt Count (150-400) K/uL MPV (7.40-12.00) fL Neut % (Auto) (48.0-80.0) % Lymph % (Auto) (16.0-40.0) % [place] % (Auto) (0.0-15.0) % Eos % (Auto) (0.0-7.0) % Baso % (Auto) (0.0-1.5) % Neut # (Auto) (1.4-5.7) K/uL Lymph # (Auto) (0.6-2.4) K/uL [place] # (Auto) (0.0-0.8) K/uL Eos # (Auto) (0.0-0.7) K/uL Baso # (Auto) (0.0-0.1) K/uL Nucleated RBC % /100WBC Nucleated RBCs # K/uL Lactate (0.20-2.00) mmol/L Sodium 142 (136-148) mmol/L Potassium 3.5 (3.5-5.1) mmol/L Chloride 104 (98-107) mmol/L Carbon Dioxide 26.3 (21.0-32.0) mmol/L BUN 14 (7.0-18.0) mg/dL Creatinine 0.9 (0.8-1.3) mg/dL Est Cr Clr Drug Dosing 85.90 mL/min Estimated GFR (MDRD) > 60.0 ml/min Glucose 99 (74-106) mg/dL Calcium 8.2 L (8.5-10.1) mg/dL Magnesium (1.8-2.4) mg/dL Total Bilirubin 1.4 H (0.2-1.0) mg/dL AST 17 (15-37) IU/L ALT 27 (14-63) IU/L Alkaline Phosphatase 51 (46-116) U/L Troponin I (0.000-0.056) ng/mL Total Protein 7.4 (6.4-8.2) g/dL Albumin 3.4 (3.4-5.0) g/dL Globulin 4.0 (2.6-4.0) g/dL Albumin/Globulin Ratio 0.9 (0.9-1.6) Lipase (73-393) U/L Urine Color Urine Appearance Urine pH (5.0-8.0) Ur Specific [place] (1.001-1.035) Urine Protein (NEGATIVE) mg/dL Urine Glucose (UA) (NEGATIVE) mg/dL Urine Ketones (NEGATIVE) mg/dL Urine Occult Blood (NEGATIVE) Urine Nitrite (NEGATIVE) Urine Bilirubin (NEGATIVE) Urine Ictotest Urine Urobilinogen (<2.0) EU/dL Ur Leukocyte Esterase (NEGATIVE) U Hyaline Cast (Auto) (0-2/LPF) Urine RBC (0-2/HPF) Urine WBC (0-5/HPF) Ur Epithelial Cells (NONE-FEW) Urine Bacteria (NEGATIVE) Urine Mucus (NONE-MOD) SARS-CoV-2 RNA (PILI) (NEGATIVE) Result Diagrams: 01/07/21 05:48 01/07/21 05:48 Sepsis Event Note - Evaluation Sepsis Screening Result: No Definite Risk - Focused Exam Vital Signs: Vital Signs Temp Pulse Resp BP Pulse Ox 01/07/21 05:31 98.1 F 78 18 165/85 H 95 01/07/21 03:31 96 01/07/21 01:17 97.3 F 90 18 168/92 H 95 01/07/21 00:42 86 162/86 H 92 L 01/06/21 23:42 89 178/88 H 92 L 01/06/21 23:12 81 165/92 H 94 L 01/06/21 22:42 78 157/85 H 91 L 01/06/21 22:13 87 143/76 H 90 L 01/06/21 21:12 90 189/103 H 93 L 01/06/21 20:39 98 F 104 H 16 176/125 H 95 - Problem List (1) Hypertension SNOMED Code(s): 95183717 ICD Code: I10 - ESSENTIAL (PRIMARY) HYPERTENSION Status: Acute Current Visit: Yes (2) Small bowel obstruction SNOMED Code(s): 928662065 ICD Code: K56.609 - UNSP INTESTNL OBST, UNSP TO PARTIAL VERSUS COMPLETE OBST Status: Acute Priority: Medium Current Visit: Yes Problem List Initiated/Reviewed/Updated: Yes Orders Last 24hrs: Active Orders 24 hr Category Date Time Status Patient Status [ADT] Routine ADT 01/06/21 23:14 Active BIPAP Adult [RT BiPAP/CPAP] [RC] ASDIRECTED Care 01/07/21 01:32 Active Cardiac Monitoring [RC] . DIRECTED Care 01/06/21 20:48 Active EKG Documentation Completion [RC] STAT Care 01/06/21 20:48 Active Gastrointestinal Tube Mgmt [RC] ASDIRECTED Care 01/06/21 23:12 Active Nasogastric Tube Management [Gastrointestinal Tube Mgmt Care 01/07/21 01:30 Active ] [RC] ASDIRECTED Pulse Oximetry [RC] ASDIRECTED Care 01/06/21 20:48 Active Telemetry Monitoring [Cardiac Monitoring] [RC] Q8H Care 01/07/21 00:27 Active NPO [Nothing Per Oral Diet] [DIET] Diet 01/07/21 Breakfast Active Magnesium Sulfate 2 GM ONETIME Med 01/07/21 07:14 Ordered Magnesium Sulfate/Water [Magnesium Sulfate in Water 2 GM/50 ML] 2 gm in 50 ml IV ONETIME Morphine Med 01/07/21 01:24 Active 2 mg IVPUSH Q3H PRN Ondansetron [Zofran] Med 01/07/21 01:26 Active 4 mg IVPUSH Q4H PRN Sodium Chloride 0.9% [Normal Saline] 1,000 ml Med 01/07/21 01:30 Active IV ASDIRECTED Sodium Chloride 0.9% [Saline Flush] Med 01/06/21 20:48 Active 10 ml FLUSH ASDIRECTED PRN Sodium Chloride 0.9% [Saline Flush] Med 01/06/21 20:48 Active 2.5 ml FLUSH ASDIRECTED PRN NG [Nasogastric Orogastric Tube Insertion] [OM.PC] Stat Oth 01/06/21 23:12 Ordered Saline Lock Insert [OM.PC] Stat Ot 01/06/21 20:48 Ordered Medication Orders Sodium Chloride (Normal Saline) 1,000 mls @ 125 mls/hr IV ASDIRECTED LUIS ENRIQUE Last Admin: 01/07/21 01:53 Dose: 125 mls/hr Documented by: JENNI Magnesium Sulfate (Magnesium Sulfate In Water 2 Gm/50 Ml) 2 gm in 50 mls @ 50 mls/hr IV ONETIME ONE Stop: 01/07/21 08:13 Morphine Sulfate (Morphine 2 Mg/Ml Syringe) 2 mg IVPUSH Q3H PRN PRN Reason: Pain Ondansetron HCl (Ondansetron 4 Mg/2 Ml Sdv) 4 mg IVPUSH Q4H PRN PRN Reason: Nausea/Vomiting Sodium Chloride (Sodium Chloride 0.9% 10 Ml Syringe) 10 ml FLUSH ASDIRECTED PRN PRN Reason: Keep Vein Open Last Admin: 01/06/21 21:07 Dose: 10 ml Documented by: MAMIE Sodium Chloride (Sodium Chloride 0.9% 2.5 Ml Syringe) 2.5 ml FLUSH ASDIRECTED PRN PRN Reason: Keep Vein Open Last Admin: 01/06/21 21:07 Dose: 2.5 ml Documented by: MAMIE Assessment/Plan Comment:: Small bowel obstructionn.p.o., IV fluids normal saline 125 ml/hr, NG tube for decompression, Zofran, morphine 2mg Q3H. General surgery consulted and recommendation was made to manage patient medically without surgical intervention. Hypertensionpatient currently takes amlodipine, ramipril, clonidine. Due to NG tube placement patient cannot take oral medications, patient started on enalaprilat 1.25 mg IV. Will titrate as needed as it may be given Q6H.
[2021-01-07] MEDS: Morphine 2 MG/ML SYRINGE IVPUSH PRN ×2 (08:28→18:15)
[2021-01-07] MEDS: Sodium Chloride 0.9% 2.5 ML Syringe FLUSH PRN (08:30)
--- NOTE | 2021-01-07 11:59 | PCM.CONS ---
<CindyGrady - Last Filed: 01/07/21 11:53> H&P History of Present Illness - General Date of Service: 01/07/21 Admit Problem/Dx: Admission Diagnosis/Problem Admission Diagnosis/Problem Small bowel obstruction Source of Information: Patient History Limitations: Reports: No Limitations - History of Present Illness Initial Comments - Free Text/Narative: Sylvester Mattson is a 70 year old male w/ PMH obesity, HTN for whom General Surgery was consulted regarding findings concerning for small bowel obstruction. Patient began to have diarrhea and abdominal pain on 01/05. Progressing to 01/06 patient continued to have pain, nausea, emesis and wasn't having bowel function. This prompted an ED visit on 01/[address] scan demonstrated a mild small bowel obstruction without a definite transition point. Patient does have an incarcerated ventral hernia containing small bowel. However, bowel does not appear to be compromised from the CT scan. Lab workup on 01/06 [place] [address] which has decreased [place] 6000 today. Lactic acid was normal. This morning, patient states that abdominal pain has improved and nausea has resolved. He states he passed a small amount of gas this morning. Past surgical history is significant for midline incision, colotomy, and removal of large colon polyp, ventral hernia repair with mesh, and left inguinal hernia repair. Patient takes a baby aspirin, otherwise, no blood thinners. abdomen Pain Score (Numeric/FACES): 4 - Related Data Allergies/Adverse Reactions: Allergies Allergy/AdvReac Type Severity Reaction Status Date / Time labetalol Allergy Dizziness Verified 01/07/21 03:32 tamsulosin Allergy Cannot Verified 01/07/21 03:32 Remember Home Medications: Home Meds amLODIPine Besylate [Amlodipine Besylate] 10 mg PO QAM 11/24/14 [History] ramipriL [Altace] 20 mg PO DAILY 11/24/14 [History] Aspirin [[place]er Aspirin EC] 81 mg PO DAILY 11/22/16 [History] Multivit-Min/FA/Lycopen/Lutein [Centrum Silver Tablet] 1 tab PO DAILY 11/22/16 [History] cloNIDine HCL [Catapres] 0.2 mg PO TID 11/22/16 [History] Sildenafil Citrate 50 mg PO ASDIRECTED PRN 11/25/18 [History] Past Medical History - Past Health History Medical/Surgical History: Denies Medical/Surgical History HEENT History: Reports: Other (See Below) Other HEENT History: wears glasses Cardiovascular History: Reports: Hypertension Respiratory History: Reports: Sleep Apnea Other Respiratory History: uses BiPAP Gastrointestinal History: Reports: Colon Polyp Genitourinary History: Reports: BPH Musculoskeletal History: Reports: Back Pain, Chronic Neurological History: Reports: None Psychiatric History: Reports: None Endocrine/Metabolic History: Reports: Obesity/BMI 30+, Other (See Below) Hematologic History: Reports: None Oncologic (Cancer) History: Reports: None Dermatologic History: Reports: Other (See Below) Other Dermatologic History: acne - Past Surgical History Head Surgeries/Procedures: Reports: None HEENT Surgical History: Reports: Naso-Sinus Surgery Other HEENT Surgeries/Procedures: Rhinoplasty GI Surgical History: Reports: Colonoscopy, Hernia, Inguinal, Hernia Repair/Other, Other (See Below) Other GI Surgeries/Procedures: Laparotony-colotomy with removal of colon polyps, Incisional hernia repair Social & Family History - Tobacco Use Tobacco Use Status *Q: Never Tobacco User - Caffeine Use Caffeine Use: Reports: Coffee - Recreational Drug Use Recreational Drug Use: No H&P Review of Systems - Review of Systems: Review Of Systems: See Below General: Reports: No Symptoms HEENT: Reports: No Symptoms Pulmonary: Reports: No Symptoms Cardiovascular: Reports: No Symptoms Gastrointestinal: Reports: No Symptoms (See HPI, nausea and abdominal pain have resolved and improved, respectively. Now passing gas.) Genitourinary: Reports: No Symptoms Musculoskeletal: Reports: No Symptoms Skin: Reports: No Symptoms Psychiatric: Reports: No Symptoms Neurological: Reports: No Symptoms Exam - Exam Exam: See Below - Vital Signs Vital Signs: Last Vital Signs Temp 98.1 F 01/07/21 08:40 Pulse 79 01/07/21 08:40 Resp 16 01/07/21 08:40 BP 194/96 H 01/07/21 08:40 Pulse Ox 93 L 01/07/21 08:40 Weight: 276 lb 4.815 oz - Exam General: Alert, Oriented HEENT: EOMI, Mucosa Moist & [place] Neck: Trachea Midline Lungs: Clear to Auscultation Cardiovascular: Regular Rate, Regular Rhythm GI/Abdominal Exam: Soft (moderately distended. Mild tenderness to palpation near RUQ where hernia is present. No guarding or rigidity on palpation.) Extremities: Normal Inspection, No Pedal Edema Skin: Warm, Dry, Intact Neurological: Cranial Nerves Intact Neuro Extensive - Mental Status: Alert, Oriented x3 Psychiatric: Alert, Normal Affect, Normal Mood - Patient Data Lab Results Last 24 hrs: Laboratory Results - last 24 hr 01/06/21 01/06/21 01/06/21 Range/Units 20:52 21:05 21:05 WBC 11.65 H (4.0-11.0) K/uL RBC 5.43 (4.50-5.90) M/uL Hgb 18.0 H (13.0-17.0) g/dL Hct 49.6 (38.0-50.0) % MCV 91.3 (80.0-98.0) fL MCH 33.1 H (27.0-32.0) pg MCHC 36.3 (31.0-37.0) g/dL RDW Std Deviation 43.1 (28.0-62.0) fl RDW Coeff of Unique 13 (11.0-15.0) % Plt Count 235 (150-400) K/uL MPV 9.50 (7.40-12.00) fL Neut % (Auto) 77.6 (48.0-80.0) % Lymph % (Auto) 8.9 L (16.0-40.0) % [place] % (Auto) 13.0 (0.0-15.0) % Eos % (Auto) 0.4 (0.0-7.0) % Baso % (Auto) 0.1 (0.0-1.5) % Neut # (Auto) 9.0 H (1.4-5.7) K/uL Lymph # (Auto) 1.0 (0.6-2.4) K/uL [place] # (Auto) 1.5 H (0.0-0.8) K/uL Eos # (Auto) 0.1 (0.0-0.7) K/uL Baso # (Auto) 0.0 (0.0-0.1) K/uL Nucleated RBC % 0.0 /100WBC Nucleated RBCs # 0 K/uL Lactate 1.0 (0.20-2.00) mmol/L Sodium (136-148) mmol/L Potassium (3.5-5.1) mmol/L Chloride (98-107) mmol/L Carbon Dioxide (21.0-32.0) mmol/L BUN (7.0-18.0) mg/dL Creatinine (0.8-1.3) mg/dL Est Cr Clr Drug Dosing mL/min Estimated GFR (MDRD) ml/min Glucose (74-106) mg/dL POC Glucose (60-110) mg/dL Calcium (8.5-10.1) mg/dL Magnesium (1.8-2.4) mg/dL Total Bilirubin (0.2-1.0) mg/dL AST (15-37) IU/L ALT (14-63) IU/L Alkaline Phosphatase (46-116) U/L Troponin I (0.000-0.056) ng/mL Total Protein (6.4-8.2) g/dL Albumin (3.4-5.0) g/dL Globulin (2.6-4.0) g/dL Albumin/Globulin Ratio (0.9-1.6) Lipase (73-393) U/L Urine Color DARK YELLOW Urine Appearance SLT CLOUDY Urine pH 5.0 (5.0-8.0) Ur Specific [place] 1.025 (1.001-1.035) Urine Protein TRACE H (NEGATIVE) mg/dL Urine Glucose (UA) NEGATIVE (NEGATIVE) mg/dL Urine Ketones 15 H (NEGATIVE) mg/dL Urine Occult Blood NEGATIVE (NEGATIVE) Urine Nitrite NEGATIVE (NEGATIVE) Urine Bilirubin SMALL H (NEGATIVE) Urine Ictotest NEGATIVE Urine Urobilinogen 1.0 (<2.0) EU/dL Ur Leukocyte Esterase TRACE H (NEGATIVE) U Hyaline Cast (Auto) 1-3 (0-2/LPF) Urine RBC 0-1 (0-2/HPF) Urine WBC 6-9 (0-5/HPF) Ur Epithelial Cells FEW (NONE-FEW) Urine Bacteria FEW (NEGATIVE) Urine Mucus LIGHT (NONE-MOD) SARS-CoV-2 RNA (PILI) (NEGATIVE) 01/06/21 01/06/21 01/07/21 Range/Units 21:05 23:10 05:48 WBC 6.51 (4.0-11.0) K/uL RBC 5.09 (4.50-5.90) M/uL Hgb 16.6 (13.0-17.0) g/dL Hct 47.1 (38.0-50.0) % MCV 92.5 (80.0-98.0) fL MCH 32.6 H (27.0-32.0) pg MCHC 35.2 (31.0-37.0) g/dL RDW Std Deviation 44.2 (28.0-62.0) fl RDW Coeff of Unique 13 (11.0-15.0) % Plt Count 215 (150-400) K/uL MPV 9.90 (7.40-12.00) fL Neut % (Auto) 54.4 (48.0-80.0) % Lymph % (Auto) 24.7 (16.0-40.0) % [place] % (Auto) 18.7 H (0.0-15.0) % Eos % (Auto) 2.0 (0.0-7.0) % Baso % (Auto) 0.2 (0.0-1.5) % Neut # (Auto) 3.5 (1.4-5.7) K/uL Lymph # (Auto) 1.6 (0.6-2.4) K/uL [place] # (Auto) 1.2 H (0.0-0.8) K/uL Eos # (Auto) 0.1 (0.0-0.7) K/uL Baso # (Auto) 0.0 (0.0-0.1) K/uL Nucleated RBC % 0.0 /100WBC Nucleated RBCs # 0 K/uL Lactate (0.20-2.00) mmol/L Sodium 139 (136-148) mmol/L Potassium 3.5 (3.5-5.1) mmol/L Chloride 101 (98-107) mmol/L Carbon Dioxide 24.4 (21.0-32.0) mmol/L BUN 19 H (7.0-18.0) mg/dL Creatinine 1.1 (0.8-1.3) mg/dL Est Cr Clr Drug Dosing 70.62 mL/min Estimated GFR (MDRD) > 60.0 ml/min Glucose 128 H (74-106) mg/dL POC Glucose (60-110) mg/dL Calcium 8.8 (8.5-10.1) mg/dL Magnesium 1.7 L (1.8-2.4) mg/dL Total Bilirubin 1.8 H (0.2-1.0) mg/dL AST 15 (15-37) IU/L ALT 29 (14-63) IU/L Alkaline Phosphatase 59 (46-116) U/L Troponin I < 0.050 (0.000-0.056) ng/mL Total Protein 8.3 H (6.4-8.2) g/dL Albumin 3.8 (3.4-5.0) g/dL Globulin 4.5 H (2.6-4.0) g/dL Albumin/Globulin Ratio 0.8 L (0.9-1.6) Lipase 89 (73-393) U/L Urine Color Urine Appearance Urine pH (5.0-8.0) Ur Specific [place] (1.001-1.035) Urine Protein (NEGATIVE) mg/dL Urine Glucose (UA) (NEGATIVE) mg/dL Urine Ketones (NEGATIVE) mg/dL Urine Occult Blood (NEGATIVE) Urine Nitrite (NEGATIVE) Urine Bilirubin (NEGATIVE) Urine Ictotest Urine Urobilinogen (<2.0) EU/dL Ur Leukocyte Esterase (NEGATIVE) U Hyaline Cast (Auto) (0-2/LPF) Urine RBC (0-2/HPF) Urine WBC (0-5/HPF) Ur Epithelial Cells (NONE-FEW) Urine Bacteria (NEGATIVE) Urine Mucus (NONE-MOD) SARS-CoV-2 RNA (PILI) NEGATIVE (NEGATIVE) 01/07/21 01/07/21 Range/Units 05:48 11:38 WBC (4.0-11.0) K/uL RBC (4.50-5.90) M/uL Hgb (13.0-17.0) g/dL Hct (38.0-50.0) % MCV (80.0-98.0) fL MCH (27.0-32.0) pg MCHC (31.0-37.0) g/dL RDW Std Deviation (28.0-62.0) fl RDW Coeff of Unique (11.0-15.0) % Plt Count (150-400) K/uL MPV (7.40-12.00) fL Neut % (Auto) (48.0-80.0) % Lymph % (Auto) (16.0-40.0) % [place] % (Auto) (0.0-15.0) % Eos % (Auto) (0.0-7.0) % Baso % (Auto) (0.0-1.5) % Neut # (Auto) (1.4-5.7) K/uL Lymph # (Auto) (0.6-2.4) K/uL [place] # (Auto) (0.0-0.8) K/uL Eos # (Auto) (0.0-0.7) K/uL Baso # (Auto) (0.0-0.1) K/uL Nucleated RBC % /100WBC Nucleated RBCs # K/uL Lactate (0.20-2.00) mmol/L Sodium 142 (136-148) mmol/L Potassium 3.5 (3.5-5.1) mmol/L Chloride 104 (98-107) mmol/L Carbon Dioxide 26.3 (21.0-32.0) mmol/L BUN 14 (7.0-18.0) mg/dL Creatinine 0.9 (0.8-1.3) mg/dL Est Cr Clr Drug Dosing 85.90 mL/min Estimated GFR (MDRD) > 60.0 ml/min Glucose 99 (74-106) mg/dL POC Glucose 95 (60-110) mg/dL Calcium 8.2 L (8.5-10.1) mg/dL Magnesium (1.8-2.4) mg/dL Total Bilirubin 1.4 H (0.2-1.0) mg/dL AST 17 (15-37) IU/L ALT 27 (14-63) IU/L Alkaline Phosphatase 51 (46-116) U/L Troponin I (0.000-0.056) ng/mL Total Protein 7.4 (6.4-8.2) g/dL Albumin 3.4 (3.4-5.0) g/dL Globulin 4.0 (2.6-4.0) g/dL Albumin/Globulin Ratio 0.9 (0.9-1.6) Lipase (73-393) U/L Urine Color Urine Appearance Urine pH (5.0-8.0) Ur Specific [place] (1.001-1.035) Urine Protein (NEGATIVE) mg/dL Urine Glucose (UA) (NEGATIVE) mg/dL Urine Ketones (NEGATIVE) mg/dL Urine Occult Blood (NEGATIVE) Urine Nitrite (NEGATIVE) Urine Bilirubin (NEGATIVE) Urine Ictotest Urine Urobilinogen (<2.0) EU/dL Ur Leukocyte Esterase (NEGATIVE) U Hyaline Cast (Auto) (0-2/LPF) Urine RBC (0-2/HPF) Urine WBC (0-5/HPF) Ur Epithelial Cells (NONE-FEW) Urine Bacteria (NEGATIVE) Urine Mucus (NONE-MOD) SARS-CoV-2 RNA (PILI) (NEGATIVE) Result Diagrams: 01/07/21 05:48 01/07/21 05:48 Imaging Impressions Last 24 hrs: CT scan as mentioned in HPI. Patient also has a large kidney cyst and cyst which may be originating from pancreas. Patient does not have previous CT scan as comparator. Sepsis Event Note - Evaluation Sepsis Screening Result: No Definite Risk - Focused Exam Vital Signs: Vital Signs Temp Pulse Resp BP Pulse Ox 01/07/21 08:40 98.1 F 79 16 194/96 H 93 L 01/07/21 05:31 98.1 F 78 18 165/85 H 95 01/07/21 03:31 96 01/07/21 01:17 97.3 F 90 18 168/92 H 95 01/07/21 00:42 86 162/86 H 92 L *Q Meaningful Use (ADM) - VTE Risk Assess *Q Each Risk Factor Represents 1 Point: Obesity ( BMI > 25 kg/m2) Total Score 1 Point Risk Factors: 1 Each Risk Factor Represents 2 Points: Age 60 - 74 Years Total Score 2 Point Risk Factors: 2 Consult PN Assessment/Plan Procedures: Procedures ASSAY OF ALDOSTERONE (11/21/16) ASSAY OF FREE THYROXINE (12/23/19) ASSAY OF LACTIC ACID (11/27/14) ASSAY OF METANEPHRINES (11/21/16) ASSAY OF PROTEIN URINE (01/21/18) ASSAY OF RENIN (01/09/17) ASSAY OF URINE CREATININE (01/21/18) ASSAY THYROID STIM HORMONE (12/23/19) BLOOD CULTURE FOR BACTERIA (11/24/14) COLONOSCOPY AND BIOPSY (11/28/18) COLONOSCOPY SUBMUCOUS NJX (11/28/18) COLONOSCOPY W/LESION REMOVAL (11/26/16) COMPLETE CBC AUTOMATED (04/16/17) COMPLETE CBC W/AUTO DIFF WBC (12/01/19) COMPREHEN METABOLIC PANEL (06/28/20) COMPUTER DX MAMMOGRAM ADD-ON (09/13/16) EMERGENCY DEPT VISIT (07/16/20) EMERGENCY DEPT VISIT (11/27/14) EXTREMITY STUDY (12/01/19) FIBRIN DEGRADATION QUANT (12/01/19) GLYCOSYLATED HEMOGLOBIN TEST (12/23/19) HEPATIC FUNCTION PANEL (04/16/17) IIV4 VACC NO PRSV 0.5 ML IM (09/06/16) IMMUNIZATION ADMIN (07/16/20) LIPID PANEL (06/28/20) METABOLIC PANEL TOTAL CA (12/15/18) OFFICE O/P EST MOD 30-39 MIN (06/28/20) RENAL FUNCTION PANEL (01/21/18) REVISION OF NOSE (08/28/17) ROUTINE VENIPUNCTURE (06/28/20) RPR S/N/AX/GEN/TRNK2.6-7.5CM (07/16/20) SHAVE SKIN LESION 1.1-2.0 CM (12/17/19) TDAP VACCINE 7 YRS/> IM (07/16/20) THER/PROPH/DIAG INJ IV PUSH (11/27/14) THER/PROPH/DIAG IV INF INIT (11/25/14) TISSUE EXAM BY PATHOLOGIST (12/17/19) TX/PRO/DX INJ NEW DRUG ADDON (11/24/14) ULTRASOUND BREAST LIMITED (09/13/16) URINALYSIS AUTO W/SCOPE (01/21/18) US EXAM ABDO BACK WALL COMP (10/09/16) VASCULAR STUDY (10/09/16) (1) Small bowel obstruction SNOMED Code(s): 627650218 Code(s): K56.609 - UNSP INTESTNL OBST, UNSP TO PARTIAL VERSUS COMPLETE OBST Priority: Medium Current Visit: Yes Problem List Initiated/Reviewed/Updated: Yes Plan: -No acute indication for surgery present. -Encourage ambulation -Recommend MRI for possible pancreatic cyst on CT scan -NG tube management per Hospitalist Service Requesting Provider: Dr. Ayad Grimm Date Consult Requested: 01/07/21 Reason for Consult: SBO <Sharad Lewis - Last Filed: 01/07/21 16:33> H&P History of Present Illness - General Admit Problem/Dx: Admission Diagnosis/Problem Admission Diagnosis/Problem Small bowel obstruction Exam - Vital Signs Vital Signs: Last Vital Signs Temp 97.5 F 01/07/21 12:06 Pulse 75 01/07/21 12:06 Resp 14 01/07/21 12:06 BP 195/89 H 01/07/21 14:18 Pulse Ox 94 L 01/07/21 12:06 - Patient Data Lab Results Last 24 hrs: Laboratory Results - last 24 hr 01/06/21 01/06/21 01/06/21 Range/Units 20:52 21:05 21:05 WBC 11.65 H (4.0-11.0) K/uL RBC 5.43 (4.50-5.90) M/uL Hgb 18.0 H (13.0-17.0) g/dL Hct 49.6 (38.0-50.0) % MCV 91.3 (80.0-98.0) fL MCH 33.1 H (27.0-32.0) pg MCHC 36.3 (31.0-37.0) g/dL RDW Std Deviation 43.1 (28.0-62.0) fl RDW Coeff of Unique 13 (11.0-15.0) % Plt Count 235 (150-400) K/uL MPV 9.50 (7.40-12.00) fL Neut % (Auto) 77.6 (48.0-80.0) % Lymph % (Auto) 8.9 L (16.0-40.0) % [place] % (Auto) 13.0 (0.0-15.0) % Eos % (Auto) 0.4 (0.0-7.0) % Baso % (Auto) 0.1 (0.0-1.5) % Neut # (Auto) 9.0 H (1.4-5.7) K/uL Lymph # (Auto) 1.0 (0.6-2.4) K/uL [place] # (Auto) 1.5 H (0.0-0.8) K/uL Eos # (Auto) 0.1 (0.0-0.7) K/uL Baso # (Auto) 0.0 (0.0-0.1) K/uL Nucleated RBC % 0.0 /100WBC Nucleated RBCs # 0 K/uL Lactate 1.0 (0.20-2.00) mmol/L Sodium (136-148) mmol/L Potassium (3.5-5.1) mmol/L Chloride (98-107) mmol/L Carbon Dioxide (21.0-32.0) mmol/L BUN (7.0-18.0) mg/dL Creatinine (0.8-1.3) mg/dL Est Cr Clr Drug Dosing mL/min Estimated GFR (MDRD) ml/min Glucose (74-106) mg/dL POC Glucose (60-110) mg/dL Calcium (8.5-10.1) mg/dL Magnesium (1.8-2.4) mg/dL Total Bilirubin (0.2-1.0) mg/dL AST (15-37) IU/L ALT (14-63) IU/L Alkaline Phosphatase (46-116) U/L Troponin I (0.000-0.056) ng/mL Total Protein (6.4-8.2) g/dL Albumin (3.4-5.0) g/dL Globulin (2.6-4.0) g/dL Albumin/Globulin Ratio (0.9-1.6) Lipase (73-393) U/L Urine Color DARK YELLOW Urine Appearance SLT CLOUDY Urine pH 5.0 (5.0-8.0) Ur Specific [place] 1.025 (1.001-1.035) Urine Protein TRACE H (NEGATIVE) mg/dL Urine Glucose (UA) NEGATIVE (NEGATIVE) mg/dL Urine Ketones 15 H (NEGATIVE) mg/dL Urine Occult Blood NEGATIVE (NEGATIVE) Urine Nitrite NEGATIVE (NEGATIVE) Urine Bilirubin SMALL H (NEGATIVE) Urine Ictotest NEGATIVE Urine Urobilinogen 1.0 (<2.0) EU/dL Ur Leukocyte Esterase TRACE H (NEGATIVE) U Hyaline Cast (Auto) 1-3 (0-2/LPF) Urine RBC 0-1 (0-2/HPF) Urine WBC 6-9 (0-5/HPF) Ur Epithelial Cells FEW (NONE-FEW) Urine Bacteria FEW (NEGATIVE) Urine Mucus LIGHT (NONE-MOD) SARS-CoV-2 RNA (PILI) (NEGATIVE) 03/12/21 03/12/21 03/13/21 Range/Units 21:05 23:10 05:48 WBC 6.51 (4.0-11.0) K/uL RBC 5.09 (4.50-5.90) M/uL Hgb 16.6 (13.0-17.0) g/dL Hct 47.1 (38.0-50.0) % MCV 92.5 (80.0-98.0) fL MCH 32.6 H (27.0-32.0) pg MCHC 35.2 (31.0-37.0) g/dL RDW Std Deviation 44.2 (28.0-62.0) fl RDW Coeff of Unique 13 (11.0-15.0) % Plt Count 215 (150-400) K/uL MPV 9.90 (7.40-12.00) fL Neut % (Auto) 54.4 (48.0-80.0) % Lymph % (Auto) 24.7 (16.0-40.0) % [place] % (Auto) 18.7 H (0.0-15.0) % Eos % (Auto) 2.0 (0.0-7.0) % Baso % (Auto) 0.2 (0.0-1.5) % Neut # (Auto) 3.5 (1.4-5.7) K/uL Lymph # (Auto) 1.6 (0.6-2.4) K/uL [place] # (Auto) 1.2 H (0.0-0.8) K/uL Eos # (Auto) 0.1 (0.0-0.7) K/uL Baso # (Auto) 0.0 (0.0-0.1) K/uL Nucleated RBC % 0.0 /100WBC Nucleated RBCs # 0 K/uL Lactate (0.20-2.00) mmol/L Sodium 139 (136-148) mmol/L Potassium 3.5 (3.5-5.1) mmol/L Chloride 101 (98-107) mmol/L Carbon Dioxide 24.4 (21.0-32.0) mmol/L BUN 19 H (7.0-18.0) mg/dL Creatinine 1.1 (0.8-1.3) mg/dL Est Cr Clr Drug Dosing 70.62 mL/min Estimated GFR (MDRD) > 60.0 ml/min Glucose 128 H (74-106) mg/dL POC Glucose (60-110) mg/dL Calcium 8.8 (8.5-10.1) mg/dL Magnesium 1.7 L (1.8-2.4) mg/dL Total Bilirubin 1.8 H (0.2-1.0) mg/dL AST 15 (15-37) IU/L ALT 29 (14-63) IU/L Alkaline Phosphatase 59 (46-116) U/L Troponin I < 0.050 (0.000-0.056) ng/mL Total Protein 8.3 H (6.4-8.2) g/dL Albumin 3.8 (3.4-5.0) g/dL Globulin 4.5 H (2.6-4.0) g/dL Albumin/Globulin Ratio 0.8 L (0.9-1.6) Lipase 89 (73-393) U/L Urine Color Urine Appearance Urine pH (5.0-8.0) Ur Specific [place] (1.001-1.035) Urine Protein (NEGATIVE) mg/dL Urine Glucose (UA) (NEGATIVE) mg/dL Urine Ketones (NEGATIVE) mg/dL Urine Occult Blood (NEGATIVE) Urine Nitrite (NEGATIVE) Urine Bilirubin (NEGATIVE) Urine Ictotest Urine Urobilinogen (<2.0) EU/dL Ur Leukocyte Esterase (NEGATIVE) U Hyaline Cast (Auto) (0-2/LPF) Urine RBC (0-2/HPF) Urine WBC (0-5/HPF) Ur Epithelial Cells (NONE-FEW) Urine Bacteria (NEGATIVE) Urine Mucus (NONE-MOD) SARS-CoV-2 RNA (PILI) NEGATIVE (NEGATIVE) 01/07/21 01/07/21 Range/Units 05:48 11:38 WBC (4.0-11.0) K/uL RBC (4.50-5.90) M/uL Hgb (13.0-17.0) g/dL Hct (38.0-50.0) % MCV (80.0-98.0) fL MCH (27.0-32.0) pg MCHC (31.0-37.0) g/dL RDW Std Deviation (28.0-62.0) fl RDW Coeff of Unique (11.0-15.0) % Plt Count (150-400) K/uL MPV (7.40-12.00) fL Neut % (Auto) (48.0-80.0) % Lymph % (Auto) (16.0-40.0) % [place] % (Auto) (0.0-15.0) % Eos % (Auto) (0.0-7.0) % Baso % (Auto) (0.0-1.5) % Neut # (Auto) (1.4-5.7) K/uL Lymph # (Auto) (0.6-2.4) K/uL [place] # (Auto) (0.0-0.8) K/uL Eos # (Auto) (0.0-0.7) K/uL Baso # (Auto) (0.0-0.1) K/uL Nucleated RBC % /100WBC Nucleated RBCs # K/uL Lactate (0.20-2.00) mmol/L Sodium 142 (136-148) mmol/L Potassium 3.5 (3.5-5.1) mmol/L Chloride 104 (98-107) mmol/L Carbon Dioxide 26.3 (21.0-32.0) mmol/L BUN 14 (7.0-18.0) mg/dL Creatinine 0.9 (0.8-1.3) mg/dL Est Cr Clr Drug Dosing 85.90 mL/min Estimated GFR (MDRD) > 60.0 ml/min Glucose 99 (74-106) mg/dL POC Glucose 95 (60-110) mg/dL Calcium 8.2 L (8.5-10.1) mg/dL Magnesium (1.8-2.4) mg/dL Total Bilirubin 1.4 H (0.2-1.0) mg/dL AST 17 (15-37) IU/L ALT 27 (14-63) IU/L Alkaline Phosphatase 51 (46-116) U/L Troponin I (0.000-0.056) ng/mL Total Protein 7.4 (6.4-8.2) g/dL Albumin 3.4 (3.4-5.0) g/dL Globulin 4.0 (2.6-4.0) g/dL Albumin/Globulin Ratio 0.9 (0.9-1.6) Lipase (73-393) U/L Urine Color Urine Appearance Urine pH (5.0-8.0) Ur Specific Cameron (1.001-1.035) Urine Protein (NEGATIVE) mg/dL Urine Glucose (UA) (NEGATIVE) mg/dL Urine Ketones (NEGATIVE) mg/dL Urine Occult Blood (NEGATIVE) Urine Nitrite (NEGATIVE) Urine Bilirubin (NEGATIVE) Urine Ictotest Urine Urobilinogen (<2.0) EU/dL Ur Leukocyte Esterase (NEGATIVE) U Hyaline Cast (Auto) (0-2/LPF) Urine RBC (0-2/HPF) Urine WBC (0-5/HPF) Ur Epithelial Cells (NONE-FEW) Urine Bacteria (NEGATIVE) Urine Mucus (NONE-MOD) SARS-CoV-2 RNA (PILI) (NEGATIVE) Result Diagrams: 01/07/21 05:48 01/07/21 05:48 Sepsis Event Note - Focused Exam Vital Signs: Vital Signs Temp Pulse Resp BP BP Pulse Ox 01/07/21 14:18 195/89 H 01/07/21 13:44 203/93 H 01/07/21 12:06 97.5 F 75 14 203/93 H 94 L 01/07/21 08:40 98.1 F 79 16 194/96 H 93 L 01/07/21 05:31 98.1 F 78 18 165/85 H 95 Consult PN Assessment/Plan Procedures: Procedures ASSAY OF ALDOSTERONE (11/21/16) ASSAY OF FREE THYROXINE (12/23/19) ASSAY OF LACTIC ACID (11/27/14) ASSAY OF METANEPHRINES (11/21/16) ASSAY OF PROTEIN URINE (01/21/18) ASSAY OF RENIN (01/09/17) ASSAY OF URINE CREATININE (01/21/18) ASSAY THYROID STIM HORMONE (12/23/19) BLOOD CULTURE FOR BACTERIA (11/24/14) COLONOSCOPY AND BIOPSY (11/28/18) COLONOSCOPY SUBMUCOUS NJX (11/28/18) COLONOSCOPY W/LESION REMOVAL (11/26/16) COMPLETE CBC AUTOMATED (04/16/17) COMPLETE CBC W/AUTO DIFF WBC (12/01/19) COMPREHEN METABOLIC PANEL (06/28/20) COMPUTER DX MAMMOGRAM ADD-ON (09/13/16) EMERGENCY DEPT VISIT (07/16/20) EMERGENCY DEPT VISIT (11/27/14) EXTREMITY STUDY (12/01/19) FIBRIN DEGRADATION QUANT (12/01/19) GLYCOSYLATED HEMOGLOBIN TEST (12/23/19) HEPATIC FUNCTION PANEL (04/16/17) IIV4 VACC NO PRSV 0.5 ML IM (09/06/16) IMMUNIZATION ADMIN (07/16/20) LIPID PANEL (06/28/20) METABOLIC PANEL TOTAL CA (12/15/18) OFFICE O/P EST MOD 30-39 MIN (06/28/20) RENAL FUNCTION PANEL (01/21/18) REVISION OF NOSE (08/28/17) ROUTINE VENIPUNCTURE (06/28/20) RPR S/N/AX/GEN/TRNK2.6-7.5CM (07/16/20) SHAVE SKIN LESION 1.1-2.0 CM (12/17/19) TDAP VACCINE 7 YRS/> IM (07/16/20) THER/PROPH/DIAG INJ IV PUSH (11/27/14) THER/PROPH/DIAG IV INF INIT (11/25/14) TISSUE EXAM BY PATHOLOGIST (12/17/19) TX/PRO/DX INJ NEW DRUG ADDON (11/24/14) ULTRASOUND BREAST LIMITED (09/13/16) URINALYSIS AUTO W/SCOPE (01/21/18) US EXAM ABDO BACK WALL COMP (10/09/16) VASCULAR STUDY (10/09/16) (1) Hypertension SNOMED Code(s): 44195406 Code(s): I10 - ESSENTIAL (PRIMARY) HYPERTENSION Priority: Medium Current Visit: Yes (2) Small bowel obstruction SNOMED Code(s): 344130278 Code(s): K56.609 - UNSP INTESTNL OBST, UNSP TO PARTIAL VERSUS COMPLETE OBST Priority: High Current Visit: Yes Problem List Initiated/Reviewed/Updated: Yes Plan: Patient seen and examined with Dr. White earlier today. I agree with his assessment and plan. Regarding the cystic mass behind the stomach in the region of the tail of the pancreas, I think an MRI would be appropriate to further evaluate this. Certainly the differential diagnosis could include a pancreatic pseudocyst or possibly a cystic neoplasm of the pancreas. I do think this bears further workup, although I do not think is contributing to his current situati on.
[2021-01-07] MEDS ORDERED: Labetalol 100 MG/20 ML MDV IVPUSH ONE (12:39)
[2021-01-07] MEDS ORDERED: Enalaprilat 1.25 MG/ML SDV IVPUSH ONE ×2 (13:20→19:07)
[2021-01-07] MEDS ORDERED: hydrALAZINE 20 MG/ML SDV IVPUSH ONE (19:07)
[2021-01-07] MEDS: Pantoprazole 40 MG in Sodium Chloride 0.9% 10 ML IV SCH (21:22)
[2021-01-08] MEDS: Labetalol 100 MG/20 ML MDV IVPUSH PRN ×2 (05:05→09:06)
[2021-01-08 06:29] LABS: BLOOD UREA NITROGEN,BUN 8 mg/dL (7.0-18.0); CHLORIDE,CL 108 mmol/L (98-107); GLUCOSE RANDOM 91 mg/dL (74-106); SODIUM,NA 146 mmol/L (136-148)
[2021-01-08 06:38] LABS: CARBON DIOXIDE,CO2 23.8 mmol/L (21.0-32.0)
[2021-01-08] MEDS: Sodium Chloride 0.9% 1,000 ML IV SCH ×2 (07:47→23:28)
[2021-01-08] MEDS ORDERED: Potassium Chloride Riders 40 MEQ in Premix Bag 1 BAG IV ONE (10:08)
[2021-01-08] MEDS ORDERED: Sodium Chloride 0.9% with KCl 1,000 ML IV ONE (10:15)
--- NOTE | 2021-01-08 12:12 | PCM.PN ---
- General Info Date of Service: 01/08/21 Admission Dx/Problem (Free Text): Admission Diagnosis/Problem Admission Diagnosis/Problem Small bowel obstruction Subjective Update: seen at bedside, very upset over the fact that he couldn't get any sleep at night due to frequent disturbances, states he wants to leave today but agreed to stay one more night, no abdominal pain, nausea, passing some gas every few hours, no bowel movement. significant NG tube output, Functional Status: Reports: Ambulating, Urinating. Denies: Tolerating Diet - Review of Systems General: Reports: Weakness. Denies: Fever, Fatigue Pulmonary: Denies: Shortness of Breath, Pleuritic Chest Pain Cardiovascular: Denies: Chest Pain, Palpitations Gastrointestinal: Reports: Constipation, Decreased Appetite. Denies: Abdominal Pain, Diarrhea Genitourinary: Denies: Dysuria, Frequency, Burning Musculoskeletal: Denies: Neck Pain, Shoulder Pain, Arm Pain Neurological: Denies: Confusion, Dizziness, Headache Psychiatric: Reports: Anxiety. Denies: Hallucinations, Suicidal Ideation, Homicidal Ideation - Patient Data Vitals - Most Recent: Last Vital Signs Temp 36.6 C 01/08/21 12:00 Pulse 69 01/08/21 12:00 Resp 14 01/08/21 12:00 BP 182/100 H 01/08/21 12:00 Pulse Ox 93 L 01/08/21 12:00 Weight - Most Recent: 125.328 kg I&O - Last 24 Hours: Intake & Output 01/07/21 01/08/21 01/08/21 21:59 06:59 14:59 Intake Total Output Total Balance Lab Results Last 24 Hours: Laboratory Results - last 24 hr 01/07/21 01/07/21 01/07/21 Range/Units 11:38 16:39 20:16 WBC (4.0-11.0) K/uL RBC (4.50-5.90) M/uL Hgb (13.0-17.0) g/dL Hct (38.0-50.0) % MCV (80.0-98.0) fL MCH (27.0-32.0) pg MCHC (31.0-37.0) g/dL RDW Std Deviation (28.0-62.0) fl RDW Coeff of Unique (11.0-15.0) % Plt Count (150-400) K/uL MPV (7.40-12.00) fL Neut % (Auto) (48.0-80.0) % Lymph % (Auto) (16.0-40.0) % [place] % (Auto) (0.0-15.0) % Eos % (Auto) (0.0-7.0) % Baso % (Auto) (0.0-1.5) % Neut # (Auto) (1.4-5.7) K/uL Lymph # (Auto) (0.6-2.4) K/uL [place] # (Auto) (0.0-0.8) K/uL Eos # (Auto) (0.0-0.7) K/uL Baso # (Auto) (0.0-0.1) K/uL Nucleated RBC % /100WBC Nucleated RBCs # K/uL Sodium (136-148) mmol/L Potassium (3.5-5.1) mmol/L Chloride (98-107) mmol/L Carbon Dioxide (21.0-32.0) mmol/L BUN (7.0-18.0) mg/dL Creatinine (0.8-1.3) mg/dL Est Cr Clr Drug Dosing mL/min Estimated GFR (MDRD) ml/min Glucose (74-106) mg/dL POC Glucose 95 103 92 (60-110) mg/dL Calcium (8.5-10.1) mg/dL Magnesium (1.8-2.4) mg/dL Total Bilirubin (0.2-1.0) mg/dL AST (15-37) IU/L ALT (14-63) IU/L Alkaline Phosphatase (46-116) U/L Total Protein (6.4-8.2) g/dL Albumin (3.4-5.0) g/dL Globulin (2.6-4.0) g/dL Albumin/Globulin Ratio (0.9-1.6) 01/07/21 01/07/21 01/08/21 Range/Units 21:03 23:59 03:53 WBC 5.67 (4.0-11.0) K/uL RBC 5.16 (4.50-5.90) M/uL Hgb 16.6 (13.0-17.0) g/dL Hct 47.6 (38.0-50.0) % MCV 92.2 (80.0-98.0) fL MCH 32.2 H (27.0-32.0) pg MCHC 34.9 (31.0-37.0) g/dL RDW Std Deviation 43.9 (28.0-62.0) fl RDW Coeff of Unique 13 (11.0-15.0) % Plt Count 208 (150-400) K/uL MPV 9.40 (7.40-12.00) fL Neut % (Auto) 56.8 (48.0-80.0) % Lymph % (Auto) 21.3 (16.0-40.0) % [place] % (Auto) 19.4 H (0.0-15.0) % Eos % (Auto) 2.3 (0.0-7.0) % Baso % (Auto) 0.2 (0.0-1.5) % Neut # (Auto) 3.2 (1.4-5.7) K/uL Lymph # (Auto) 1.2 (0.6-2.4) K/uL [place] # (Auto) 1.1 H (0.0-0.8) K/uL Eos # (Auto) 0.1 (0.0-0.7) K/uL Baso # (Auto) 0.0 (0.0-0.1) K/uL Nucleated RBC % 0.0 /100WBC Nucleated RBCs # 0 K/uL Sodium (136-148) mmol/L Potassium (3.5-5.1) mmol/L Chloride (98-107) mmol/L Carbon Dioxide (21.0-32.0) mmol/L BUN (7.0-18.0) mg/dL Creatinine (0.8-1.3) mg/dL Est Cr Clr Drug Dosing mL/min Estimated GFR (MDRD) ml/min Glucose (74-106) mg/dL POC Glucose 94 92 (60-110) mg/dL Calcium (8.5-10.1) mg/dL Magnesium (1.8-2.4) mg/dL Total Bilirubin (0.2-1.0) mg/dL AST (15-37) IU/L ALT (14-63) IU/L Alkaline Phosphatase (46-116) U/L Total Protein (6.4-8.2) g/dL Albumin (3.4-5.0) g/dL Globulin (2.6-4.0) g/dL Albumin/Globulin Ratio (0.9-1.6) 01/08/21 01/08/21 01/08/21 Range/Units 05:38 05:38 08:07 WBC 5.80 (4.0-11.0) K/uL RBC 5.01 (4.50-5.90) M/uL Hgb 16.3 (13.0-17.0) g/dL Hct 46.7 (38.0-50.0) % MCV 93.2 (80.0-98.0) fL MCH 32.5 H (27.0-32.0) pg MCHC 34.9 (31.0-37.0) g/dL RDW Std Deviation 44.5 (28.0-62.0) fl RDW Coeff of Unique 13 (11.0-15.0) % Plt Count 213 (150-400) K/uL MPV 9.50 (7.40-12.00) fL Neut % (Auto) 59.8 (48.0-80.0) % Lymph % (Auto) 22.8 (16.0-40.0) % [place] % (Auto) 15.5 H (0.0-15.0) % Eos % (Auto) 1.7 (0.0-7.0) % Baso % (Auto) 0.2 (0.0-1.5) % Neut # (Auto) 3.5 (1.4-5.7) K/uL Lymph # (Auto) 1.3 (0.6-2.4) K/uL [place] # (Auto) 0.9 H (0.0-0.8) K/uL Eos # (Auto) 0.1 (0.0-0.7) K/uL Baso # (Auto) 0.0 (0.0-0.1) K/uL Nucleated RBC % 0.0 /100WBC Nucleated RBCs # 0 K/uL Sodium 146 (136-148) mmol/L Potassium 3.0 L (3.5-5.1) mmol/L Chloride 108 H (98-107) mmol/L Carbon Dioxide 23.8 (21.0-32.0) mmol/L BUN 8 (7.0-18.0) mg/dL Creatinine 0.7 L (0.8-1.3) mg/dL Est Cr Clr Drug Dosing 110.44 mL/min Estimated GFR (MDRD) > 60.0 ml/min Glucose 91 (74-106) mg/dL POC Glucose 86 (60-110) mg/dL Calcium 7.9 L (8.5-10.1) mg/dL Magnesium 2.0 (1.8-2.4) mg/dL Total Bilirubin 0.9 (0.2-1.0) mg/dL AST 11 L (15-37) IU/L ALT 23 (14-63) IU/L Alkaline Phosphatase 45 L (46-116) U/L Total Protein 7.0 (6.4-8.2) g/dL Albumin 3.2 L (3.4-5.0) g/dL Globulin 3.8 (2.6-4.0) g/dL Albumin/Globulin Ratio 0.8 L (0.9-1.6) Med Orders - Current: Current Medications Pantoprazole Sodium 40 mg/ (Sodium Chloride) 10 mls @ 300 mls/hr IV Q24H [facility] Last Admin: 01/07/21 21:22 Dose: 300 mls/hr Documented by: Sodium Chloride (Normal Saline) 1,000 mls @ 100 mls/hr IV ASDIRECTED [facility] Last Admin: 01/08/21 07:47 Dose: 100 mls/hr Documented by: Potassium Chloride/Sodium Chloride (Normal Saline With 40 Meq Kcl) 1,000 mls @ 250 mls/hr IV ONETIME ONE Stop: 01/08/21 14:14 Last Admin: 01/08/21 10:42 Dose: 250 mls/hr Documented by: Labetalol HCl (Labetalol 100 Mg/20 Ml Mdv) 20 mg IVPUSH Q4H PRN; Protocol PRN Reason: Hypertension Last Admin: 01/08/21 09:06 Dose: 20 mg Documented by: Morphine Sulfate (Morphine 2 Mg/Ml Syringe) 2 mg IVPUSH Q3H PRN PRN Reason: Pain Last Admin: 01/07/21 18:15 Dose: 2 mg Documented by: Ondansetron HCl (Ondansetron 4 Mg/2 Ml Sdv) 4 mg IVPUSH Q4H PRN PRN Reason: Nausea/Vomiting Sodium Chloride (Sodium Chloride 0.9% 10 Ml Syringe) 10 ml FLUSH ASDIRECTED PRN PRN Reason: Keep Vein Open Last Admin: 01/06/21 21:07 Dose: 10 ml Documented by: Sodium Chloride (Sodium Chloride 0.9% 2.5 Ml Syringe) 2.5 ml FLUSH ASDIRECTED PRN PRN Reason: Keep Vein Open Last Admin: 01/07/21 08:30 Dose: 2.5 ml Documented by: Discontinued Medications Al Hydroxide/Mg Hydroxide 15 (ml/ Lidocaine HCl 5 ml) 0 ml PO ONETIME ONE Stop: 01/06/21 20:49 Last Admin: 01/06/21 21:07 Dose: 1 each Documented by: Enalaprilat (Enalaprilat 1.25 Mg/Ml Sdv) 1.25 mg IVPUSH ONETIME ONE Stop: 01/07/21 13:21 Last Admin: 01/07/21 13:44 Dose: 1.25 mg Documented by: Enalaprilat (Enalaprilat 1.25 Mg/Ml Sdv) 1.25 mg IVPUSH ONETIME ONE Stop: 01/07/21 19:08 Last Admin: 01/07/21 20:10 Dose: 1.25 mg Documented by: Famotidine (Famotidine 20 Mg/2 Ml Sdv) 20 mg IVPUSH ONETIME ONE Stop: 01/06/21 20:49 Last Admin: 01/06/21 21:07 Dose: 20 mg Documented by: Hydralazine HCl (Hydralazine 20 Mg/Ml Sdv) 10 mg IVPUSH ONETIME ONE Stop: 01/07/21 19:08 Last Admin: 01/07/21 19:19 Dose: 10 mg Documented by: Sodium Chloride (Normal Saline) 1,000 mls @ 999 mls/hr IV .Bolus ONE Stop: 01/06/21 21:48 Last Admin: 01/06/21 21:07 Dose: 999 mls/hr Documented by: Sodium Chloride (Normal Saline) 1,000 mls @ 125 mls/hr IV ASDIRECTED [facility] Last Admin: 01/07/21 18:21 Dose: 125 mls/hr Documented by: Magnesium Sulfate (Magnesium Sulfate In Water 2 Gm/50 Ml) 2 gm in 50 mls @ 50 mls/hr IV ONETIME ONE Stop: 01/07/21 08:13 Last Admin: 01/07/21 08:31 Dose: 50 mls/hr Documented by: Iopamidol (Iopamidol 755 Mg/Ml 500 Ml Multipack Bottle) 100 ml IVPUSH ONETIME STA Stop: 01/06/21 22:10 Last Admin: 01/06/21 22:10 Dose: 100 ml Documented by: Labetalol HCl (Labetalol 100 Mg/20 Ml Mdv) 20 mg IVPUSH ONETIME ONE; Protocol Stop: 01/07/21 12:40 Last Admin: 01/07/21 14:46 Dose: Not Given Documented by: Morphine Sulfate (Morphine 4 Mg/Ml Syringe) 4 mg IVPUSH ONETIME ONE Stop: 01/06/21 20:49 Last Admin: 01/06/21 21:07 Dose: 4 mg Documented by: Ondansetron HCl (Ondansetron 4 Mg/2 Ml Sdv) 4 mg IVPUSH ONETIME ONE Stop: 01/06/21 20:49 Last Admin: 01/06/21 21:07 Dose: 4 mg Documented by: - Exam General: Alert, Oriented, Mild Distress Lungs: Clear to Auscultation, Normal Respiratory Effort Cardiovascular: Regular Rate, Regular Rhythm GI/Abdominal Exam: Non-Tender, Distended, Abnormal Bowel Sounds. No: Normal Bowel Sounds, Hepatomegaly, Splenomegaly Extremities: Normal Inspection, Normal Range of Motion, Non-Tender - Patient Data Lab Results Last 24 hrs: Laboratory Results - last 24 hr 01/07/21 01/07/21 01/07/21 Range/Units 11:38 16:39 20:16 WBC (4.0-11.0) K/uL RBC (4.50-5.90) M/uL Hgb (13.0-17.0) g/dL Hct (38.0-50.0) % MCV (80.0-98.0) fL MCH (27.0-32.0) pg MCHC (31.0-37.0) g/dL RDW Std Deviation (28.0-62.0) fl RDW Coeff of Unique (11.0-15.0) % Plt Count (150-400) K/uL MPV (7.40-12.00) fL Neut % (Auto) (48.0-80.0) % Lymph % (Auto) (16.0-40.0) % [place] % (Auto) (0.0-15.0) % Eos % (Auto) (0.0-7.0) % Baso % (Auto) (0.0-1.5) % Neut # (Auto) (1.4-5.7) K/uL Lymph # (Auto) (0.6-2.4) K/uL [place] # (Auto) (0.0-0.8) K/uL Eos # (Auto) (0.0-0.7) K/uL Baso # (Auto) (0.0-0.1) K/uL Nucleated RBC % /100WBC Nucleated RBCs # K/uL Sodium (136-148) mmol/L Potassium (3.5-5.1) mmol/L Chloride (98-107) mmol/L Carbon Dioxide (21.0-32.0) mmol/L BUN (7.0-18.0) mg/dL Creatinine (0.8-1.3) mg/dL Est Cr Clr Drug Dosing mL/min Estimated GFR (MDRD) ml/min Glucose (74-106) mg/dL POC Glucose 95 103 92 (60-110) mg/dL Calcium (8.5-10.1) mg/dL Magnesium (1.8-2.4) mg/dL Total Bilirubin (0.2-1.0) mg/dL AST (15-37) IU/L ALT (14-63) IU/L Alkaline Phosphatase (46-116) U/L Total Protein (6.4-8.2) g/dL Albumin (3.4-5.0) g/dL Globulin (2.6-4.0) g/dL Albumin/Globulin Ratio (0.9-1.6) 01/07/21 01/07/21 01/08/21 Range/Units 21:03 23:59 03:53 WBC 5.67 (4.0-11.0) K/uL RBC 5.16 (4.50-5.90) M/uL Hgb 16.6 (13.0-17.0) g/dL Hct 47.6 (38.0-50.0) % MCV 92.2 (80.0-98.0) fL MCH 32.2 H (27.0-32.0) pg MCHC 34.9 (31.0-37.0) g/dL RDW Std Deviation 43.9 (28.0-62.0) fl RDW Coeff of Unique 13 (11.0-15.0) % Plt Count 208 (150-400) K/uL MPV 9.40 (7.40-12.00) fL Neut % (Auto) 56.8 (48.0-80.0) % Lymph % (Auto) 21.3 (16.0-40.0) % [place] % (Auto) 19.4 H (0.0-15.0) % Eos % (Auto) 2.3 (0.0-7.0) % Baso % (Auto) 0.2 (0.0-1.5) % Neut # (Auto) 3.2 (1.4-5.7) K/uL Lymph # (Auto) 1.2 (0.6-2.4) K/uL [place] # (Auto) 1.1 H (0.0-0.8) K/uL Eos # (Auto) 0.1 (0.0-0.7) K/uL Baso # (Auto) 0.0 (0.0-0.1) K/uL Nucleated RBC % 0.0 /100WBC Nucleated RBCs # 0 K/uL Sodium (136-148) mmol/L Potassium (3.5-5.1) mmol/L Chloride (98-107) mmol/L Carbon Dioxide (21.0-32.0) mmol/L BUN (7.0-18.0) mg/dL Creatinine (0.8-1.3) mg/dL Est Cr Clr Drug Dosing mL/min Estimated GFR (MDRD) ml/min Glucose (74-106) mg/dL POC Glucose 94 92 (60-110) mg/dL Calcium (8.5-10.1) mg/dL Magnesium (1.8-2.4) mg/dL Total Bilirubin (0.2-1.0) mg/dL AST (15-37) IU/L ALT (14-63) IU/L Alkaline Phosphatase (46-116) U/L Total Protein (6.4-8.2) g/dL Albumin (3.4-5.0) g/dL Globulin (2.6-4.0) g/dL Albumin/Globulin Ratio (0.9-1.6) 01/08/21 01/08/21 01/08/21 Range/Units 05:38 05:38 08:07 WBC 5.80 (4.0-11.0) K/uL RBC 5.01 (4.50-5.90) M/uL Hgb 16.3 (13.0-17.0) g/dL Hct 46.7 (38.0-50.0) % MCV 93.2 (80.0-98.0) fL MCH 32.5 H (27.0-32.0) pg MCHC 34.9 (31.0-37.0) g/dL RDW Std Deviation 44.5 (28.0-62.0) fl RDW Coeff of Unique 13 (11.0-15.0) % Plt Count 213 (150-400) K/uL MPV 9.50 (7.40-12.00) fL Neut % (Auto) 59.8 (48.0-80.0) % Lymph % (Auto) 22.8 (16.0-40.0) % [place] % (Auto) 15.5 H (0.0-15.0) % Eos % (Auto) 1.7 (0.0-7.0) % Baso % (Auto) 0.2 (0.0-1.5) % Neut # (Auto) 3.5 (1.4-5.7) K/uL Lymph # (Auto) 1.3 (0.6-2.4) K/uL [place] # (Auto) 0.9 H (0.0-0.8) K/uL Eos # (Auto) 0.1 (0.0-0.7) K/uL Baso # (Auto) 0.0 (0.0-0.1) K/uL Nucleated RBC % 0.0 /100WBC Nucleated RBCs # 0 K/uL Sodium 146 (136-148) mmol/L Potassium 3.0 L (3.5-5.1) mmol/L Chloride 108 H (98-107) mmol/L Carbon Dioxide 23.8 (21.0-32.0) mmol/L BUN 8 (7.0-18.0) mg/dL Creatinine 0.7 L (0.8-1.3) mg/dL Est Cr Clr Drug Dosing 110.44 mL/min Estimated GFR (MDRD) > 60.0 ml/min Glucose 91 (74-106) mg/dL POC Glucose 86 (60-110) mg/dL Calcium 7.9 L (8.5-10.1) mg/dL Magnesium 2.0 (1.8-2.4) mg/dL Total Bilirubin 0.9 (0.2-1.0) mg/dL AST 11 L (15-37) IU/L ALT 23 (14-63) IU/L Alkaline Phosphatase 45 L (46-116) U/L Total Protein 7.0 (6.4-8.2) g/dL Albumin 3.2 L (3.4-5.0) g/dL Globulin 3.8 (2.6-4.0) g/dL Albumin/Globulin Ratio 0.8 L (0.9-1.6) Result Diagrams: 01/08/21 05:38 01/08/21 05:38 Sepsis Event Note - Evaluation Sepsis Screening Result: No Definite Risk - Focused Exam Vital Signs: Vital Signs Temp Pulse Resp BP Pulse Ox Pulse Ox 01/08/21 12:00 36.6 C 69 14 182/100 H 93 L 01/08/21 09:42 187/97 H 01/08/21 09:07 180/106 H 01/08/21 07:52 36.6 C 83 14 177/103 H 95 01/08/21 06:57 77 177/94 H 94 L 01/08/21 05:48 185/91 H 94 L 01/08/21 04:46 36.5 C 94 16 184/101 H 94 L 01/08/21 00:03 36.8 C 102 H 16 177/91 H 92 L 01/07/21 23:26 93 L - Problem List & Annotations (1) Hypertension SNOMED Code(s): 81303664 Code(s): I10 - ESSENTIAL (PRIMARY) HYPERTENSION Status: Acute Priority: Medium Current Visit: Yes (2) Small bowel obstruction SNOMED Code(s): 938682129 Code(s): K56.609 - UNSP INTESTNL OBST, UNSP TO PARTIAL VERSUS COMPLETE OBST Status: Acute Priority: High Current Visit: Yes (3) Insomnia disorder SNOMED Code(s): 242957524 Code(s): G47.00 - INSOMNIA, UNSPECIFIED Status: Acute Current Visit: Yes - Problem List Review Problem List Initiated/Reviewed/Updated: Yes - My Orders Last 24 Hours: My Active Orders 01/07/21 21:52 Labetalol [Normodyne] 20 mg IVPUSH Q4H PRN 01/07/21 22:00 Sodium Chloride 0.9% [Normal Saline] 1,000 ml IV ASDIRECTED 01/07/21 23:26 Oxygen Therapy [RC] ASDIRECTED 01/08/21 01:05 Code Status [Resuscitation Status] Routine 01/08/21 10:15 Sodium Chloride 0.9% with KCl [Normal Saline with 40 mEq KCl] 1,000 ml IV ONETIME - Plan Plan:: Small bowel obstructionn.p.o., some ice chips, IV fluids normal saline 125 ml/hr, NG tube for decompression, Zofran, morphine 2mg Q3H. General surgery consulted and recommendation was made to manage patient medically without surgical intervention. IV Ativan at bedtime tonight Hypertensionpatient currently takes amlodipine, ramipril, clonidine. Due to NG tube placement patient cannot take oral medications, start scheduled Labetalol for aggressive blood pressure control , holding parameters in place
[2021-01-08] MEDS: Labetalol 100 MG/20 ML MDV IVPUSH SCH ×3 (12:39→20:44)
[2021-01-08] MEDS: Pantoprazole 40 MG in Sodium Chloride 0.9% 10 ML IV SCH (19:35)
[2021-01-08] MEDS ORDERED: LORazepam 2 MG/ML SDV IVPUSH ONE (21:00)
[2021-01-09] MEDS: Labetalol 100 MG/20 ML MDV IVPUSH SCH ×3 (00:36→09:39)
[2021-01-09 06:50] LABS: BLOOD UREA NITROGEN,BUN 6 mg/dL (7.0-18.0); CHLORIDE,CL 110 mmol/L (98-107); GLUCOSE RANDOM 97 mg/dL (74-106); POTASSIUM,K 3.2 mmol/L (3.5-5.1); SODIUM,NA 147 mmol/L (136-148)
[2021-01-09] MEDS ORDERED: Potassium Chloride Riders 40 MEQ in Premix Bag 1 BAG IV ONE (07:33)
[2021-01-09] MEDS ORDERED: Sodium Chloride 0.9% with KCl 1,000 ML IV ONE (08:00)
--- NOTE | 2021-01-09 08:09 | PCM.PN ---
<Tony Valenzuela - Last Filed: 01/09/21 10:40> - General Info Date of Service: 01/09/21 Subjective Update: Patient states he slept fine overnight no concerns this morning. Patient denies fever, chills, nausea, vomiting, chest pain, shortness of breath, abdominal pain. - Review of Systems General: Denies: Fever Pulmonary: Denies: Shortness of Breath Cardiovascular: Denies: Chest Pain, Palpitations Gastrointestinal: Denies: Abdominal Pain, Nausea, Vomiting Psychiatric: Denies: Confusion - Patient Data Vitals - Most Recent: Last Vital Signs Temp 97.5 F 01/09/21 06:56 Pulse 68 01/09/21 06:56 Resp 16 01/09/21 06:56 BP 187/98 H 01/09/21 06:56 Pulse Ox 94 L 01/09/21 06:56 Weight - Most Recent: 125.328 kg I&O - Last 24 Hours: Intake & Output 01/08/21 01/09/21 01/09/21 22:59 06:59 14:59 Intake Total 1737 705 Output Total 1150 2195 Balance 587 -1490 Lab Results Last 24 Hours: Laboratory Results - last 24 hr 01/08/21 01/08/21 01/08/21 Range/Units 08:07 12:09 16:50 WBC (4.0-11.0) K/uL RBC (4.50-5.90) M/uL Hgb (13.0-17.0) g/dL Hct (38.0-50.0) % MCV (80.0-98.0) fL MCH (27.0-32.0) pg MCHC (31.0-37.0) g/dL RDW Std Deviation (28.0-62.0) fl RDW Coeff of Unique (11.0-15.0) % Plt Count (150-400) K/uL MPV (7.40-12.00) fL Neut % (Auto) (48.0-80.0) % Lymph % (Auto) (16.0-40.0) % Kings % (Auto) (0.0-15.0) % Eos % (Auto) (0.0-7.0) % Baso % (Auto) (0.0-1.5) % Neut # (Auto) (1.4-5.7) K/uL Lymph # (Auto) (0.6-2.4) K/uL Kings # (Auto) (0.0-0.8) K/uL Eos # (Auto) (0.0-0.7) K/uL Baso # (Auto) (0.0-0.1) K/uL Nucleated RBC % /100WBC Nucleated RBCs # K/uL Sodium (136-148) mmol/L Potassium (3.5-5.1) mmol/L Chloride (98-107) mmol/L Carbon Dioxide (21.0-32.0) mmol/L BUN (7.0-18.0) mg/dL Creatinine (0.8-1.3) mg/dL Est Cr Clr Drug Dosing mL/min Estimated GFR (MDRD) ml/min Glucose (74-106) mg/dL POC Glucose 86 99 101 (60-110) mg/dL Calcium (8.5-10.1) mg/dL Phosphorus (2.6-4.7) mg/dL Magnesium (1.8-2.4) mg/dL Total Bilirubin (0.2-1.0) mg/dL AST (15-37) IU/L ALT (14-63) IU/L Alkaline Phosphatase (46-116) U/L Total Protein (6.4-8.2) g/dL Albumin (3.4-5.0) g/dL Globulin (2.6-4.0) g/dL Albumin/Globulin Ratio (0.9-1.6) 01/08/21 01/09/21 01/09/21 Range/Units 20:01 00:22 04:06 WBC (4.0-11.0) K/uL RBC (4.50-5.90) M/uL Hgb (13.0-17.0) g/dL Hct (38.0-50.0) % MCV (80.0-98.0) fL MCH (27.0-32.0) pg MCHC (31.0-37.0) g/dL RDW Std Deviation (28.0-62.0) fl RDW Coeff of Unique (11.0-15.0) % Plt Count (150-400) K/uL MPV (7.40-12.00) fL Neut % (Auto) (48.0-80.0) % Lymph % (Auto) (16.0-40.0) % Kings % (Auto) (0.0-15.0) % Eos % (Auto) (0.0-7.0) % Baso % (Auto) (0.0-1.5) % Neut # (Auto) (1.4-5.7) K/uL Lymph # (Auto) (0.6-2.4) K/uL Kings # (Auto) (0.0-0.8) K/uL Eos # (Auto) (0.0-0.7) K/uL Baso # (Auto) (0.0-0.1) K/uL Nucleated RBC % /100WBC Nucleated RBCs # K/uL Sodium (136-148) mmol/L Potassium (3.5-5.1) mmol/L Chloride (98-107) mmol/L Carbon Dioxide (21.0-32.0) mmol/L BUN (7.0-18.0) mg/dL Creatinine (0.8-1.3) mg/dL Est Cr Clr Drug Dosing mL/min Estimated GFR (MDRD) ml/min Glucose (74-106) mg/dL POC Glucose 100 92 88 (60-110) mg/dL Calcium (8.5-10.1) mg/dL Phosphorus (2.6-4.7) mg/dL Magnesium (1.8-2.4) mg/dL Total Bilirubin (0.2-1.0) mg/dL AST (15-37) IU/L ALT (14-63) IU/L Alkaline Phosphatase (46-116) U/L Total Protein (6.4-8.2) g/dL Albumin (3.4-5.0) g/dL Globulin (2.6-4.0) g/dL Albumin/Globulin Ratio (0.9-1.6) 01/09/21 01/09/21 Range/Units 06:10 06:10 WBC 7.66 (4.0-11.0) K/uL RBC 4.93 (4.50-5.90) M/uL Hgb 15.8 (13.0-17.0) g/dL Hct 46.2 (38.0-50.0) % MCV 93.7 (80.0-98.0) fL MCH 32.0 (27.0-32.0) pg MCHC 34.2 (31.0-37.0) g/dL RDW Std Deviation 45.0 (28.0-62.0) fl RDW Coeff of Unique 13 (11.0-15.0) % Plt Count 227 (150-400) K/uL MPV 9.80 (7.40-12.00) fL Neut % (Auto) 64.9 (48.0-80.0) % Lymph % (Auto) 18.3 (16.0-40.0) % Kings % (Auto) 14.0 (0.0-15.0) % Eos % (Auto) 2.5 (0.0-7.0) % Baso % (Auto) 0.3 (0.0-1.5) % Neut # (Auto) 5.0 (1.4-5.7) K/uL Lymph # (Auto) 1.4 (0.6-2.4) K/uL Kings # (Auto) 1.1 H (0.0-0.8) K/uL Eos # (Auto) 0.2 (0.0-0.7) K/uL Baso # (Auto) 0.0 (0.0-0.1) K/uL Nucleated RBC % 0.0 /100WBC Nucleated RBCs # 0 K/uL Sodium 147 (136-148) mmol/L Potassium 3.2 L (3.5-5.1) mmol/L Chloride 110 H (98-107) mmol/L Carbon Dioxide 27.0 (21.0-32.0) mmol/L BUN 6 L (7.0-18.0) mg/dL Creatinine 0.6 L (0.8-1.3) mg/dL Est Cr Clr Drug Dosing 128.85 mL/min Estimated GFR (MDRD) > 60.0 ml/min Glucose 97 (74-106) mg/dL POC Glucose (60-110) mg/dL Calcium 8.0 L (8.5-10.1) mg/dL Phosphorus 2.6 (2.6-4.7) mg/dL Magnesium 2.0 (1.8-2.4) mg/dL Total Bilirubin 0.7 (0.2-1.0) mg/dL AST 14 L (15-37) IU/L ALT 26 (14-63) IU/L Alkaline Phosphatase 46 (46-116) U/L Total Protein 7.1 (6.4-8.2) g/dL Albumin 3.1 L (3.4-5.0) g/dL Globulin 4.0 (2.6-4.0) g/dL Albumin/Globulin Ratio 0.8 L (0.9-1.6) Med Orders - Current: Current Medications Pantoprazole Sodium 40 mg/ (Sodium Chloride) 10 mls @ 300 mls/hr IV Q24H LUIS ENRIQUE Last Admin: 01/08/21 19:35 Dose: 300 mls/hr Documented by: Sodium Chloride (Normal Saline) 1,000 mls @ 100 mls/hr IV ASDIRECTED LUIS ENRIQUE Last Admin: 01/08/21 23:28 Dose: 100 mls/hr Documented by: Potassium Chloride/Sodium Chloride (Normal Saline With 40 Meq Kcl) 1,000 mls @ 250 mls/hr IV ONETIME ONE Stop: 01/09/21 11:59 Labetalol HCl (Labetalol 100 Mg/20 Ml Mdv) 20 mg IVPUSH Q4H LUIS ENRIQUE; Protocol Last Admin: 01/09/21 04:21 Dose: 20 mg Documented by: Morphine Sulfate (Morphine 2 Mg/Ml Syringe) 2 mg IVPUSH Q3H PRN PRN Reason: Pain Last Admin: 01/07/21 18:15 Dose: 2 mg Documented by: Ondansetron HCl (Ondansetron 4 Mg/2 Ml Sdv) 4 mg IVPUSH Q4H PRN PRN Reason: Nausea/Vomiting Sodium Chloride (Sodium Chloride 0.9% 10 Ml Syringe) 10 ml FLUSH ASDIRECTED PRN PRN Reason: Keep Vein Open Last Admin: 01/06/21 21:07 Dose: 10 ml Documented by: Sodium Chloride (Sodium Chloride 0.9% 2.5 Ml Syringe) 2.5 ml FLUSH ASDIRECTED PRN PRN Reason: Keep Vein Open Last Admin: 01/07/21 08:30 Dose: 2.5 ml Documented by: Discontinued Medications Al Hydroxide/Mg Hydroxide 15 (ml/ Lidocaine HCl 5 ml) 0 ml PO ONETIME ONE Stop: 01/06/21 20:49 Last Admin: 01/06/21 21:07 Dose: 1 each Documented by: Enalaprilat (Enalaprilat 1.25 Mg/Ml Sdv) 1.25 mg IVPUSH ONETIME ONE Stop: 01/07/21 13:21 Last Admin: 01/07/21 13:44 Dose: 1.25 mg Documented by: Enalaprilat (Enalaprilat 1.25 Mg/Ml Sdv) 1.25 mg IVPUSH ONETIME ONE Stop: 01/07/21 19:08 Last Admin: 01/07/21 20:10 Dose: 1.25 mg Documented by: Famotidine (Famotidine 20 Mg/2 Ml Sdv) 20 mg IVPUSH ONETIME ONE Stop: 01/06/21 20:49 Last Admin: 01/06/21 21:07 Dose: 20 mg Documented by: Hydralazine HCl (Hydralazine 20 Mg/Ml Sdv) 10 mg IVPUSH ONETIME ONE Stop: 01/07/21 19:08 Last Admin: 01/07/21 19:19 Dose: 10 mg Documented by: Sodium Chloride (Normal Saline) 1,000 mls @ 999 mls/hr IV .Bolus ONE Stop: 01/06/21 21:48 Last Admin: 01/06/21 21:07 Dose: 999 mls/hr Documented by: Sodium Chloride (Normal Saline) 1,000 mls @ 125 mls/hr IV ASDIRECTED LUIS ENRIQUE Last Admin: 01/07/21 18:21 Dose: 125 mls/hr Documented by: Magnesium Sulfate (Magnesium Sulfate In Water 2 Gm/50 Ml) 2 gm in 50 mls @ 50 mls/hr IV ONETIME ONE Stop: 01/07/21 08:13 Last Admin: 01/07/21 08:31 Dose: 50 mls/hr Documented by: Potassium Chloride/Sodium Chloride (Normal Saline With 40 Meq Kcl) 1,000 mls @ 250 mls/hr IV ONETIME ONE Stop: 01/08/21 14:14 Last Admin: 01/08/21 10:42 Dose: 250 mls/hr Documented by: Iopamidol (Iopamidol 755 Mg/Ml 500 Ml Multipack Bottle) 100 ml IVPUSH ONETIME STA Stop: 01/06/21 22:10 Last Admin: 01/06/21 22:10 Dose: 100 ml Documented by: Labetalol HCl (Labetalol 100 Mg/20 Ml Mdv) 20 mg IVPUSH ONETIME ONE; Protocol Stop: 01/07/21 12:40 Last Admin: 01/07/21 14:46 Dose: Not Given Documented by: Labetalol HCl (Labetalol 100 Mg/20 Ml Mdv) 20 mg IVPUSH Q4H PRN; Protocol PRN Reason: Hypertension Last Admin: 01/08/21 09:06 Dose: 20 mg Documented by: Lorazepam (Lorazepam 2 Mg/Ml Sdv) 1 mg IVPUSH ONETIME ONE Stop: 01/08/21 21:01 Last Admin: 01/08/21 20:57 Dose: 1 mg Documented by: Morphine Sulfate (Morphine 4 Mg/Ml Syringe) 4 mg IVPUSH ONETIME ONE Stop: 01/06/21 20:49 Last Admin: 01/06/21 21:07 Dose: 4 mg Documented by: Ondansetron HCl (Ondansetron 4 Mg/2 Ml Sdv) 4 mg IVPUSH ONETIME ONE Stop: 01/06/21 20:49 Last Admin: 01/06/21 21:07 Dose: 4 mg Documented by: - Exam General: Alert, Oriented Lungs: Clear to Auscultation, Normal Respiratory Effort Cardiovascular: Regular Rate GI/Abdominal Exam: Normal Bowel Sounds, Soft, Non-Tender Extremities: No Pedal Edema Psy/Mental Status: Alert - Patient Data Lab Results Last 24 hrs: Laboratory Results - last 24 hr 01/08/21 01/08/21 01/08/21 Range/Units 08:07 12:09 16:50 WBC (4.0-11.0) K/uL RBC (4.50-5.90) M/uL Hgb (13.0-17.0) g/dL Hct (38.0-50.0) % MCV (80.0-98.0) fL MCH (27.0-32.0) pg MCHC (31.0-37.0) g/dL RDW Std Deviation (28.0-62.0) fl RDW Coeff of Unique (11.0-15.0) % Plt Count (150-400) K/uL MPV (7.40-12.00) fL Neut % (Auto) (48.0-80.0) % Lymph % (Auto) (16.0-40.0) % Kings % (Auto) (0.0-15.0) % Eos % (Auto) (0.0-7.0) % Baso % (Auto) (0.0-1.5) % Neut # (Auto) (1.4-5.7) K/uL Lymph # (Auto) (0.6-2.4) K/uL Kings # (Auto) (0.0-0.8) K/uL Eos # (Auto) (0.0-0.7) K/uL Baso # (Auto) (0.0-0.1) K/uL Nucleated RBC % /100WBC Nucleated RBCs # K/uL Sodium (136-148) mmol/L Potassium (3.5-5.1) mmol/L Chloride (98-107) mmol/L Carbon Dioxide (21.0-32.0) mmol/L BUN (7.0-18.0) mg/dL Creatinine (0.8-1.3) mg/dL Est Cr Clr Drug Dosing mL/min Estimated GFR (MDRD) ml/min Glucose (74-106) mg/dL POC Glucose 86 99 101 (60-110) mg/dL Calcium (8.5-10.1) mg/dL Phosphorus (2.6-4.7) mg/dL Magnesium (1.8-2.4) mg/dL Total Bilirubin (0.2-1.0) mg/dL AST (15-37) IU/L ALT (14-63) IU/L Alkaline Phosphatase (46-116) U/L Total Protein (6.4-8.2) g/dL Albumin (3.4-5.0) g/dL Globulin (2.6-4.0) g/dL Albumin/Globulin Ratio (0.9-1.6) 01/08/21 01/09/21 01/09/21 Range/Units 20:01 00:22 04:06 WBC (4.0-11.0) K/uL RBC (4.50-5.90) M/uL Hgb (13.0-17.0) g/dL Hct (38.0-50.0) % MCV (80.0-98.0) fL MCH (27.0-32.0) pg MCHC (31.0-37.0) g/dL RDW Std Deviation (28.0-62.0) fl RDW Coeff of Unique (11.0-15.0) % Plt Count (150-400) K/uL MPV (7.40-12.00) fL Neut % (Auto) (48.0-80.0) % Lymph % (Auto) (16.0-40.0) % Kings % (Auto) (0.0-15.0) % Eos % (Auto) (0.0-7.0) % Baso % (Auto) (0.0-1.5) % Neut # (Auto) (1.4-5.7) K/uL Lymph # (Auto) (0.6-2.4) K/uL Kings # (Auto) (0.0-0.8) K/uL Eos # (Auto) (0.0-0.7) K/uL Baso # (Auto) (0.0-0.1) K/uL Nucleated RBC % /100WBC Nucleated RBCs # K/uL Sodium (136-148) mmol/L Potassium (3.5-5.1) mmol/L Chloride (98-107) mmol/L Carbon Dioxide (21.0-32.0) mmol/L BUN (7.0-18.0) mg/dL Creatinine (0.8-1.3) mg/dL Est Cr Clr Drug Dosing mL/min Estimated GFR (MDRD) ml/min Glucose (74-106) mg/dL POC Glucose 100 92 88 (60-110) mg/dL Calcium (8.5-10.1) mg/dL Phosphorus (2.6-4.7) mg/dL Magnesium (1.8-2.4) mg/dL Total Bilirubin (0.2-1.0) mg/dL AST (15-37) IU/L ALT (14-63) IU/L Alkaline Phosphatase (46-116) U/L Total Protein (6.4-8.2) g/dL Albumin (3.4-5.0) g/dL Globulin (2.6-4.0) g/dL Albumin/Globulin Ratio (0.9-1.6) 01/09/21 01/09/21 Range/Units 06:10 06:10 WBC 7.66 (4.0-11.0) K/uL RBC 4.93 (4.50-5.90) M/uL Hgb 15.8 (13.0-17.0) g/dL Hct 46.2 (38.0-50.0) % MCV 93.7 (80.0-98.0) fL MCH 32.0 (27.0-32.0) pg MCHC 34.2 (31.0-37.0) g/dL RDW Std Deviation 45.0 (28.0-62.0) fl RDW Coeff of Unique 13 (11.0-15.0) % Plt Count 227 (150-400) K/uL MPV 9.80 (7.40-12.00) fL Neut % (Auto) 64.9 (48.0-80.0) % Lymph % (Auto) 18.3 (16.0-40.0) % Kings % (Auto) 14.0 (0.0-15.0) % Eos % (Auto) 2.5 (0.0-7.0) % Baso % (Auto) 0.3 (0.0-1.5) % Neut # (Auto) 5.0 (1.4-5.7) K/uL Lymph # (Auto) 1.4 (0.6-2.4) K/uL Kings # (Auto) 1.1 H (0.0-0.8) K/uL Eos # (Auto) 0.2 (0.0-0.7) K/uL Baso # (Auto) 0.0 (0.0-0.1) K/uL Nucleated RBC % 0.0 /100WBC Nucleated RBCs # 0 K/uL Sodium 147 (136-148) mmol/L Potassium 3.2 L (3.5-5.1) mmol/L Chloride 110 H (98-107) mmol/L Carbon Dioxide 27.0 (21.0-32.0) mmol/L BUN 6 L (7.0-18.0) mg/dL Creatinine 0.6 L (0.8-1.3) mg/dL Est Cr Clr Drug Dosing 128.85 mL/min Estimated GFR (MDRD) > 60.0 ml/min Glucose 97 (74-106) mg/dL POC Glucose (60-110) mg/dL Calcium 8.0 L (8.5-10.1) mg/dL Phosphorus 2.6 (2.6-4.7) mg/dL Magnesium 2.0 (1.8-2.4) mg/dL Total Bilirubin 0.7 (0.2-1.0) mg/dL AST 14 L (15-37) IU/L ALT 26 (14-63) IU/L Alkaline Phosphatase 46 (46-116) U/L Total Protein 7.1 (6.4-8.2) g/dL Albumin 3.1 L (3.4-5.0) g/dL Globulin 4.0 (2.6-4.0) g/dL Albumin/Globulin Ratio 0.8 L (0.9-1.6) Result Diagrams: 01/09/21 06:10 01/09/21 06:10 Sepsis Event Note - Evaluation Sepsis Screening Result: No Definite Risk - Focused Exam Vital Signs: Vital Signs Temp Pulse Resp BP Pulse Ox 01/09/21 06:56 97.5 F 68 16 187/98 H 94 L 01/09/21 04:02 98.1 F 69 16 180/101 H 95 01/09/21 00:17 97.5 F 74 14 179/88 H 94 L 01/08/21 20:43 75 171/105 H 94 L - Problem List & Annotations (1) Hypertension SNOMED Code(s): 93726878 Code(s): I10 - ESSENTIAL (PRIMARY) HYPERTENSION Status: Acute Priority: Medium Current Visit: Yes (2) Small bowel obstruction SNOMED Code(s): 104214477 Code(s): K56.609 - UNSP INTESTNL OBST, UNSP TO PARTIAL VERSUS COMPLETE OBST Status: Acute Priority: High Current Visit: Yes (3) Hypokalemia SNOMED Code(s): 89936611 Code(s): E87.6 - HYPOKALEMIA Status: Acute Current Visit: Yes - Problem List Review Problem List Initiated/Reviewed/Updated: Yes - My Orders Last 24 Hours: My Active Orders 01/09/21 08:00 Sodium Chloride 0.9% with KCl [Normal Saline with 40 mEq KCl] 1,000 ml IV ONETIME - Plan Plan:: Small bowel obstructionn.p.o., ice chips, IV fluids normal saline 125 ml/hr, NG tube for decompression, Zofran, morphine 2mg Q3H. General surgery consulted and recommendation was made to manage patient medically without surgical intervention. Will contact surgery today and ask for recommendations. Current plan would be to remove N/G tube and trial patient on clear liquids and monitor for abdo pain, nausea, vomiting. Patient scheduled for MRI due to CT findings of cystic lesion adjacent to the stomach. Hypertensionpatient currently takes amlodipine, ramipril, clonidine. Due to NG tube placement patient cannot take oral medications, continue Labetalol for blood pressure control , holding parameters in place Hypokalemia, 3.2. 40meq K+ riders solution <Damien Jung - Last Filed: 01/09/21 19:56> - General Info Subjective Update: I have seen and evaluated the patient and agree with the residents note unless specified in my note - Patient Data Vitals - Most Recent: Last Vital Signs Temp 36.5 C 01/09/21 16:49 Pulse 65 01/09/21 16:49 Resp 14 01/09/21 16:49 BP 172/92 H 01/09/21 16:49 Pulse Ox 93 L 01/09/21 16:49 I&O - Last 24 Hours: Intake & Output 01/09/21 01/09/21 01/09/21 06:59 14:59 22:59 Intake Total 539 292 8556 Output Total 2195 250 1695 Balance -1490 -50 1126 Lab Results Last 24 Hours: Laboratory Results - last 24 hr 01/08/21 01/09/21 01/09/21 Range/Units 20:01 00:22 04:06 WBC (4.0-11.0) K/uL RBC (4.50-5.90) M/uL Hgb (13.0-17.0) g/dL Hct (38.0-50.0) % MCV (80.0-98.0) fL MCH (27.0-32.0) pg MCHC (31.0-37.0) g/dL RDW Std Deviation (28.0-62.0) fl RDW Coeff of Unique (11.0-15.0) % Plt Count (150-400) K/uL MPV (7.40-12.00) fL Neut % (Auto) (48.0-80.0) % Lymph % (Auto) (16.0-40.0) % Kings % (Auto) (0.0-15.0) % Eos % (Auto) (0.0-7.0) % Baso % (Auto) (0.0-1.5) % Neut # (Auto) (1.4-5.7) K/uL Lymph # (Auto) (0.6-2.4) K/uL Kings # (Auto) (0.0-0.8) K/uL Eos # (Auto) (0.0-0.7) K/uL Baso # (Auto) (0.0-0.1) K/uL Nucleated RBC % /100WBC Nucleated RBCs # K/uL Sodium (136-148) mmol/L Potassium (3.5-5.1) mmol/L Chloride (98-107) mmol/L Carbon Dioxide (21.0-32.0) mmol/L BUN (7.0-18.0) mg/dL Creatinine (0.8-1.3) mg/dL Est Cr Clr Drug Dosing mL/min Estimated GFR (MDRD) ml/min Glucose (74-106) mg/dL POC Glucose 100 92 88 (60-110) mg/dL Calcium (8.5-10.1) mg/dL Phosphorus (2.6-4.7) mg/dL Magnesium (1.8-2.4) mg/dL Total Bilirubin (0.2-1.0) mg/dL AST (15-37) IU/L ALT (14-63) IU/L Alkaline Phosphatase (46-116) U/L Total Protein (6.4-8.2) g/dL Albumin (3.4-5.0) g/dL Globulin (2.6-4.0) g/dL Albumin/Globulin Ratio (0.9-1.6) 01/09/21 01/09/21 01/09/21 Range/Units 06:10 06:10 09:23 WBC 7.66 (4.0-11.0) K/uL RBC 4.93 (4.50-5.90) M/uL Hgb 15.8 (13.0-17.0) g/dL Hct 46.2 (38.0-50.0) % MCV 93.7 (80.0-98.0) fL MCH 32.0 (27.0-32.0) pg MCHC 34.2 (31.0-37.0) g/dL RDW Std Deviation 45.0 (28.0-62.0) fl RDW Coeff of Unique 13 (11.0-15.0) % Plt Count 227 (150-400) K/uL MPV 9.80 (7.40-12.00) fL Neut % (Auto) 64.9 (48.0-80.0) % Lymph % (Auto) 18.3 (16.0-40.0) % Kings % (Auto) 14.0 (0.0-15.0) % Eos % (Auto) 2.5 (0.0-7.0) % Baso % (Auto) 0.3 (0.0-1.5) % Neut # (Auto) 5.0 (1.4-5.7) K/uL Lymph # (Auto) 1.4 (0.6-2.4) K/uL Kings # (Auto) 1.1 H (0.0-0.8) K/uL Eos # (Auto) 0.2 (0.0-0.7) K/uL Baso # (Auto) 0.0 (0.0-0.1) K/uL Nucleated RBC % 0.0 /100WBC Nucleated RBCs # 0 K/uL Sodium 147 (136-148) mmol/L Potassium 3.2 L (3.5-5.1) mmol/L Chloride 110 H (98-107) mmol/L Carbon Dioxide 27.0 (21.0-32.0) mmol/L BUN 6 L (7.0-18.0) mg/dL Creatinine 0.6 L (0.8-1.3) mg/dL Est Cr Clr Drug Dosing 128.85 mL/min Estimated GFR (MDRD) > 60.0 ml/min Glucose 97 (74-106) mg/dL POC Glucose 84 (60-110) mg/dL Calcium 8.0 L (8.5-10.1) mg/dL Phosphorus 2.6 (2.6-4.7) mg/dL Magnesium 2.0 (1.8-2.4) mg/dL Total Bilirubin 0.7 (0.2-1.0) mg/dL AST 14 L (15-37) IU/L ALT 26 (14-63) IU/L Alkaline Phosphatase 46 (46-116) U/L Total Protein 7.1 (6.4-8.2) g/dL Albumin 3.1 L (3.4-5.0) g/dL Globulin 4.0 (2.6-4.0) g/dL Albumin/Globulin Ratio 0.8 L (0.9-1.6) 01/09/21 01/09/21 Range/Units 12:35 16:54 WBC (4.0-11.0) K/uL RBC (4.50-5.90) M/uL Hgb (13.0-17.0) g/dL Hct (38.0-50.0) % MCV (80.0-98.0) fL MCH (27.0-32.0) pg MCHC (31.0-37.0) g/dL RDW Std Deviation (28.0-62.0) fl RDW Coeff of Unique (11.0-15.0) % Plt Count (150-400) K/uL MPV (7.40-12.00) fL Neut % (Auto) (48.0-80.0) % Lymph % (Auto) (16.0-40.0) % Kings % (Auto) (0.0-15.0) % Eos % (Auto) (0.0-7.0) % Baso % (Auto) (0.0-1.5) % Neut # (Auto) (1.4-5.7) K/uL Lymph # (Auto) (0.6-2.4) K/uL Kings # (Auto) (0.0-0.8) K/uL Eos # (Auto) (0.0-0.7) K/uL Baso # (Auto) (0.0-0.1) K/uL Nucleated RBC % /100WBC Nucleated RBCs # K/uL Sodium (136-148) mmol/L Potassium (3.5-5.1) mmol/L Chloride (98-107) mmol/L Carbon Dioxide (21.0-32.0) mmol/L BUN (7.0-18.0) mg/dL Creatinine (0.8-1.3) mg/dL Est Cr Clr Drug Dosing mL/min Estimated GFR (MDRD) ml/min Glucose (74-106) mg/dL POC Glucose 82 114 H (60-110) mg/dL Calcium (8.5-10.1) mg/dL Phosphorus (2.6-4.7) mg/dL Magnesium (1.8-2.4) mg/dL Total Bilirubin (0.2-1.0) mg/dL AST (15-37) IU/L ALT (14-63) IU/L Alkaline Phosphatase (46-116) U/L Total Protein (6.4-8.2) g/dL Albumin (3.4-5.0) g/dL Globulin (2.6-4.0) g/dL Albumin/Globulin Ratio (0.9-1.6) Med Orders - Current: Current Medications Amlodipine Besylate (Amlodipine 5 Mg Tab) 10 mg PO QAM [facility] Last Admin: 01/09/21 12:19 Dose: 10 mg Documented by: Clonidine HCl (Clonidine 0.1 Mg Tab) 0.2 mg PO TID [facility] Pantoprazole Sodium 40 mg/ (Sodium Chloride) 10 mls @ 300 mls/hr IV Q24H [facility] Last Admin: 01/08/21 19:35 Dose: 300 mls/hr Documented by: Sodium Chloride (Normal Saline) 1,000 mls @ 100 mls/hr IV ASDIRECTED [facility] Last Admin: 01/09/21 14:33 Dose: 100 mls/hr Documented by: Lorazepam (Lorazepam 2 Mg/Ml Sdv) 1 mg IVPUSH BEDTIME ONE Stop: 01/09/21 21:01 Morphine Sulfate (Morphine 2 Mg/Ml Syringe) 2 mg IVPUSH Q3H PRN PRN Reason: Pain Last Admin: 01/07/21 18:15 Dose: 2 mg Documented by: Ondansetron HCl (Ondansetron 4 Mg/2 Ml Sdv) 4 mg IVPUSH Q4H PRN PRN Reason: Nausea/Vomiting Ramipril (Ramipril 10 Mg Cap) 20 mg PO DAILY [facility] Last Admin: 01/09/21 12:18 Dose: 20 mg Documented by: Sodium Chloride (Sodium Chloride 0.9% 10 Ml Syringe) 10 ml FLUSH ASDIRECTED PRN PRN Reason: Keep Vein Open Last Admin: 01/06/21 21:07 Dose: 10 ml Documented by: Sodium Chloride (Sodium Chloride 0.9% 2.5 Ml Syringe) 2.5 ml FLUSH ASDIRECTED PRN PRN Reason: Keep Vein Open Last Admin: 01/07/21 08:30 Dose: 2.5 ml Documented by: Discontinued Medications Clonidine HCl (Clonidine 0.1 Mg Tab) 0.2 mg PO TID [facility] Last Admin: 01/09/21 14:07 Dose: Not Given Documented by: Clonidine HCl (Clonidine 0.1 Mg Tab) 0.2 mg PO TID [facility] ENRIQUE Al Hydroxide/Mg Hydroxide 15 (ml/ Lidocaine HCl 5 ml) 0 ml PO ONETIME ONE Stop: 01/06/21 20:49 Last Admin: 01/06/21 21:07 Dose: 1 each Documented by: Enalaprilat (Enalaprilat 1.25 Mg/Ml Sdv) 1.25 mg IVPUSH ONETIME ONE Stop: 01/07/21 13:21 Last Admin: 01/07/21 13:44 Dose: 1.25 mg Documented by: Enalaprilat (Enalaprilat 1.25 Mg/Ml Sdv) 1.25 mg IVPUSH ONETIME ONE Stop: 01/07/21 19:08 Last Admin: 01/07/21 20:10 Dose: 1.25 mg Documented by: Famotidine (Famotidine 20 Mg/2 Ml Sdv) 20 mg IVPUSH ONETIME ONE Stop: 01/06/21 20:49 Last Admin: 01/06/21 21:07 Dose: 20 mg Documented by: Gadobenate Dimeglumine (Gadobenate Dimeglumine 529 Mg/Ml 20 Ml Sdv) 20 ml IVPUSH ONETIME STA Stop: 01/09/21 14:11 Last Admin: 01/09/21 14:11 Dose: 20 ml Documented by: Hydralazine HCl (Hydralazine 20 Mg/Ml Sdv) 10 mg IVPUSH ONETIME ONE Stop: 01/07/21 19:08 Last Admin: 01/07/21 19:19 Dose: 10 mg Documented by: Sodium Chloride (Normal Saline) 1,000 mls @ 999 mls/hr IV .Bolus ONE Stop: 01/06/21 21:48 Last Admin: 01/06/21 21:07 Dose: 999 mls/hr Documented by: Sodium Chloride (Normal Saline) 1,000 mls @ 125 mls/hr IV ASDIRECTED [facility] Last Admin: 01/07/21 18:21 Dose: 125 mls/hr Documented by: Magnesium Sulfate (Magnesium Sulfate In Water 2 Gm/50 Ml) 2 gm in 50 mls @ 50 mls/hr IV ONETIME ONE Stop: 01/07/21 08:13 Last Admin: 01/07/21 08:31 Dose: 50 mls/hr Documented by: Potassium Chloride/Sodium Chloride (Normal Saline With 40 Meq Kcl) 1,000 mls @ 250 mls/hr IV ONETIME ONE Stop: 01/08/21 14:14 Last Admin: 01/08/21 10:42 Dose: 250 mls/hr Documented by: Potassium Chloride/Sodium Chloride (Normal Saline With 40 Meq Kcl) 1,000 mls @ 250 mls/hr IV ONETIME ONE Stop: 01/09/21 11:59 Last Admin: 01/09/21 08:57 Dose: 250 mls/hr Documented by: Iopamidol (Iopamidol 755 Mg/Ml 500 Ml Multipack Bottle) 100 ml IVPUSH ONETIME STA Stop: 01/06/21 22:10 Last Admin: 01/06/21 22:10 Dose: 100 ml Documented by: Labetalol HCl (Labetalol 100 Mg/20 Ml Mdv) 20 mg IVPUSH ONETIME ONE; Protocol Stop: 01/07/21 12:40 Last Admin: 01/07/21 14:46 Dose: Not Given Documented by: Labetalol HCl (Labetalol 100 Mg/20 Ml Mdv) 20 mg IVPUSH Q4H PRN; Protocol PRN Reason: Hypertension Last Admin: 01/08/21 09:06 Dose: 20 mg Documented by: Labetalol HCl (Labetalol 100 Mg/20 Ml Mdv) 20 mg IVPUSH Q4H [facility]; Protocol Last Admin: 01/09/21 09:39 Dose: 20 mg Documented by: Lorazepam (Lorazepam 2 Mg/Ml Sdv) 1 mg IVPUSH ONETIME ONE Stop: 01/08/21 21:01 Last Admin: 01/08/21 20:57 Dose: 1 mg Documented by: Morphine Sulfate (Morphine 4 Mg/Ml Syringe) 4 mg IVPUSH ONETIME ONE Stop: 01/06/21 20:49 Last Admin: 01/06/21 21:07 Dose: 4 mg Documented by: Non-Formulary Medication (Clonidine Hcl [Catapres]) 0.2 mg PO TID [facility] ENRIQUE Ondansetron HCl (Ondansetron 4 Mg/2 Ml Sdv) 4 mg IVPUSH ONETIME ONE Stop: 01/06/21 20:49 Last Admin: 01/06/21 21:07 Dose: 4 mg Documented by: - Patient Data Lab Results Last 24 hrs: Laboratory Results - last 24 hr 01/08/21 01/09/21 01/09/21 Range/Units 20:01 00:22 04:06 WBC (4.0-11.0) K/uL RBC (4.50-5.90) M/uL Hgb (13.0-17.0) g/dL Hct (38.0-50.0) % MCV (80.0-98.0) fL MCH (27.0-32.0) pg MCHC (31.0-37.0) g/dL RDW Std Deviation (28.0-62.0) fl RDW Coeff of Unique (11.0-15.0) % Plt Count (150-400) K/uL MPV (7.40-12.00) fL Neut % (Auto) (48.0-80.0) % Lymph % (Auto) (16.0-40.0) % Kings % (Auto) (0.0-15.0) % Eos % (Auto) (0.0-7.0) % Baso % (Auto) (0.0-1.5) % Neut # (Auto) (1.4-5.7) K/uL Lymph # (Auto) (0.6-2.4) K/uL Kings # (Auto) (0.0-0.8) K/uL Eos # (Auto) (0.0-0.7) K/uL Baso # (Auto) (0.0-0.1) K/uL Nucleated RBC % /100WBC Nucleated RBCs # K/uL Sodium (136-148) mmol/L Potassium (3.5-5.1) mmol/L Chloride (98-107) mmol/L Carbon Dioxide (21.0-32.0) mmol/L BUN (7.0-18.0) mg/dL Creatinine (0.8-1.3) mg/dL Est Cr Clr Drug Dosing mL/min Estimated GFR (MDRD) ml/min Glucose (74-106) mg/dL POC Glucose 100 92 88 (60-110) mg/dL Calcium (8.5-10.1) mg/dL Phosphorus (2.6-4.7) mg/dL Magnesium (1.8-2.4) mg/dL Total Bilirubin (0.2-1.0) mg/dL AST (15-37) IU/L ALT (14-63) IU/L Alkaline Phosphatase (46-116) U/L Total Protein (6.4-8.2) g/dL Albumin (3.4-5.0) g/dL Globulin (2.6-4.0) g/dL Albumin/Globulin Ratio (0.9-1.6) 01/09/21 01/09/21 01/09/21 Range/Units 06:10 06:10 09:23 WBC 7.66 (4.0-11.0) K/uL RBC 4.93 (4.50-5.90) M/uL Hgb 15.8 (13.0-17.0) g/dL Hct 46.2 (38.0-50.0) % MCV 93.7 (80.0-98.0) fL MCH 32.0 (27.0-32.0) pg MCHC 34.2 (31.0-37.0) g/dL RDW Std Deviation 45.0 (28.0-62.0) fl RDW Coeff of Unique 13 (11.0-15.0) % Plt Count 227 (150-400) K/uL MPV 9.80 (7.40-12.00) fL Neut % (Auto) 64.9 (48.0-80.0) % Lymph % (Auto) 18.3 (16.0-40.0) % Kings % (Auto) 14.0 (0.0-15.0) % Eos % (Auto) 2.5 (0.0-7.0) % Baso % (Auto) 0.3 (0.0-1.5) % Neut # (Auto) 5.0 (1.4-5.7) K/uL Lymph # (Auto) 1.4 (0.6-2.4) K/uL Kings # (Auto) 1.1 H (0.0-0.8) K/uL Eos # (Auto) 0.2 (0.0-0.7) K/uL Baso # (Auto) 0.0 (0.0-0.1) K/uL Nucleated RBC % 0.0 /100WBC Nucleated RBCs # 0 K/uL Sodium 147 (136-148) mmol/L Potassium 3.2 L (3.5-5.1) mmol/L Chloride 110 H (98-107) mmol/L Carbon Dioxide 27.0 (21.0-32.0) mmol/L BUN 6 L (7.0-18.0) mg/dL Creatinine 0.6 L (0.8-1.3) mg/dL Est Cr Clr Drug Dosing 128.85 mL/min Estimated GFR (MDRD) > 60.0 ml/min Glucose 97 (74-106) mg/dL POC Glucose 84 (60-110) mg/dL Calcium 8.0 L (8.5-10.1) mg/dL Phosphorus 2.6 (2.6-4.7) mg/dL Magnesium 2.0 (1.8-2.4) mg/dL Total Bilirubin 0.7 (0.2-1.0) mg/dL AST 14 L (15-37) IU/L ALT 26 (14-63) IU/L Alkaline Phosphatase 46 (46-116) U/L Total Protein 7.1 (6.4-8.2) g/dL Albumin 3.1 L (3.4-5.0) g/dL Globulin 4.0 (2.6-4.0) g/dL Albumin/Globulin Ratio 0.8 L (0.9-1.6) 01/09/21 01/09/21 Range/Units 12:35 16:54 WBC (4.0-11.0) K/uL RBC (4.50-5.90) M/uL Hgb (13.0-17.0) g/dL Hct (38.0-50.0) % MCV (80.0-98.0) fL MCH (27.0-32.0) pg MCHC (31.0-37.0) g/dL RDW Std Deviation (28.0-62.0) fl RDW Coeff of Unique (11.0-15.0) % Plt Count (150-400) K/uL MPV (7.40-12.00) fL Neut % (Auto) (48.0-80.0) % Lymph % (Auto) (16.0-40.0) % Kings % (Auto) (0.0-15.0) % Eos % (Auto) (0.0-7.0) % Baso % (Auto) (0.0-1.5) % Neut # (Auto) (1.4-5.7) K/uL Lymph # (Auto) (0.6-2.4) K/uL Kings # (Auto) (0.0-0.8) K/uL Eos # (Auto) (0.0-0.7) K/uL Baso # (Auto) (0.0-0.1) K/uL Nucleated RBC % /100WBC Nucleated RBCs # K/uL Sodium (136-148) mmol/L Potassium (3.5-5.1) mmol/L Chloride (98-107) mmol/L Carbon Dioxide (21.0-32.0) mmol/L BUN (7.0-18.0) mg/dL Creatinine (0.8-1.3) mg/dL Est Cr Clr Drug Dosing mL/min Estimated GFR (MDRD) ml/min Glucose (74-106) mg/dL POC Glucose 82 114 H (60-110) mg/dL Calcium (8.5-10.1) mg/dL Phosphorus (2.6-4.7) mg/dL Magnesium (1.8-2.4) mg/dL Total Bilirubin (0.2-1.0) mg/dL AST (15-37) IU/L ALT (14-63) IU/L Alkaline Phosphatase (46-116) U/L Total Protein (6.4-8.2) g/dL Albumin (3.4-5.0) g/dL Globulin (2.6-4.0) g/dL Albumin/Globulin Ratio (0.9-1.6) Result Diagrams: 01/09/21 06:10 01/09/21 06:10 Sepsis Event Note - Focused Exam Vital Signs: Vital Signs Temp Pulse Resp BP BP Pulse Ox 01/09/21 16:49 36.5 C 65 14 172/92 H 93 L 01/09/21 14:07 192/93 H 01/09/21 12:36 36.2 C 62 14 200/100 H 95 01/09/21 12:20 192/93 H 01/09/21 12:19 192/93 H 01/09/21 12:18 192/93 H 01/09/21 10:15 180/93 H 01/09/21 09:20 36.7 C 67 14 192/100 H 93 L - Problem List & Annotations (1) Hypertension SNOMED Code(s): 20570598 Code(s): I10 - ESSENTIAL (PRIMARY) HYPERTENSION Status: Acute Priority: Medium Current Visit: Yes (2) Small bowel obstruction SNOMED Code(s): 210706959 Code(s): K56.609 - UNSP INTESTNL OBST, UNSP TO PARTIAL VERSUS COMPLETE OBST Status: Acute Priority: High Current Visit: Yes (3) Insomnia disorder SNOMED Code(s): 155420369 Code(s): G47.00 - INSOMNIA, UNSPECIFIED Status: Acute Current Visit: Yes
[2021-01-09] MEDS: amLODIPine 5 MG Tab PO SCH (12:19)
[2021-01-09] MEDS: cloNIDine 0.1 MG Tab PO SCH ×4 (12:20→21:27)
[2021-01-09] MEDS ORDERED: CLONIDINE HCL 0.2 MG PO SCH (14:00)
[2021-01-09] MEDS ORDERED: Gadobenate Dimeglumine 529 MG/ML 20 ML SDV IVPUSH STA (14:10)
[2021-01-09] MEDS: Sodium Chloride 0.9% 1,000 ML IV SCH (14:33)
--- NOTE | 2021-01-09 14:52 | MR ---
INDICATION: Pancreatic cyst/perigastric cyst; further assessment. COMPARISON: CT abdomen and pelvis with intravenous contrast January 06, 2021. TECHNIQUE: Precontrast T1 and T2 weighted imaging; T2 haste imaging; diffusion weighted imaging; in and out of phase imaging; postcontrast imaging including subtraction. FINDINGS: Multiple hepatic cysts identified. No splenic pathology . No evidence of pancreatic ductal dilatation. No peripancreatic inflammatory changes. A 7.4 x 4.8 cm cyst identified just anterior to the mid body of the pancreas and inferior to the greater curvature of the stomach. No internal architecture identified within this cyst. No enhancement after intravenous injection of gadolinium. Cortical cyst both kidneys more on the right with the largest cortical cyst on the right measuring 7.8 cm in diameter. No obstructive uropathy or perinephric pathology. No evidence of pleural effusion. No evidence of abdominal ascites. No retroperitoneal lymphadenopathy. Post ventral hernia repair. ventral hernia right mid abdomen with small bowel as is content. 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 1. Ventral hernia. 2. Multiple cortical cyst both kidneys. 3. Multiple cysts identified in the liver. Dictated by Mason Gay MD @ Jan 09 2021 2:28PM Signed by Dr. Mason Gay @ Jan 09 2021 2:50PM
[2021-01-09] MEDS: Pantoprazole 40 MG in Sodium Chloride 0.9% 10 ML IV SCH (20:57)
[2021-01-09] MEDS ORDERED: LORazepam 2 MG/ML SDV IVPUSH ONE (21:00)
[2021-01-09] MEDS ORDERED: cloNIDine 0.1 MG Tab PO SCH (22:00)
[2021-01-10] MEDS: Sodium Chloride 0.9% 1,000 ML IV SCH (00:12)
[2021-01-10 05:58] LABS: BLOOD UREA NITROGEN,BUN 5 mg/dL (7.0-18.0); CARBON DIOXIDE,CO2 27.7 mmol/L (21.0-32.0); CHLORIDE,CL 106 mmol/L (98-107); GLUCOSE RANDOM 105 mg/dL (74-106); POTASSIUM,K 3.2 mmol/L (3.5-5.1); SODIUM,NA 143 mmol/L (136-148)
[2021-01-10] MEDS: cloNIDine 0.1 MG Tab PO SCH ×2 (06:03→13:33)
[2021-01-10] MEDS ORDERED: Potassium Chloride Riders 40 MEQ in Premix Bag 1 BAG IV ONE (07:54)
[2021-01-10] MEDS ORDERED: Sodium Chloride 0.9% with KCl 1,000 ML IV SCH (08:00)
[2021-01-10] MEDS ORDERED: Hydrochlorothiazide 25 MG Tab PO SCH (09:00)
[2021-01-10] MEDS: amLODIPine 5 MG Tab PO SCH (09:24)
--- NOTE | 2021-01-10 11:41 | PCM.DCSUM1 ---
<Tony Valenzuela - Last Filed: 01/10/21 16:45> Discharge Summary - Hospital Course Free Text/Narrative:: 70 year old male was admitted for medical management of small bowel obstruction. Patient has past medical history including hypertension, hyperlipidemia past surgical history including removal of large colon polyps ventral hernia repair with past medical history of hypertension. Patient denies diabetes, or any other respiratory conditions. Patient states he began to have, abdominal pain, nausea 2 days ago on 01-05-21 and initially assumed that his symptoms were due to food poisoning. Patient states the pain increased in the last 2 days at which time he presents to the ED with nausea vomiting, abdominal pain. CT abdomenpelvis performed in the ED showed mild small bowel obstruction without a definite transition point, with no incarcerations of bowel noted. White blood cell 6.0, normal lactic acid, CMP within normal limits. Blood pressure during admissions was noted to be between 180-200 systolic. Patient does currently take amlodipine, ramipril, clonidine for hypertension but oral medications had to be held due to NG tube placement. Patient was treated with IV anti-hypertensives through the course of his admission. Prior to discharge patient's oral meds were resumed and systolic blood pressures decreased to patients stated baseline, per patient. Patient was made n.p.o. status, started on IV fluids, morphine for pain, Zofran for nausea, NG tube placed for decompression. General surgery was consulted and recommendation was made to manage patient medically without surgical intervention. A stomach cyst was noted on patients CT abdo which was followed up with an MRI which revealed a cystic lesion posterior to the stomach as well as cortical cysts on both kidneys and hepatic cyst. Prior to discharge patient's NG tube was clamped and patient was started on clear liquid diet and eventually advanced to full liquid diet which he tolerated well without any abdominal pain, nausea, vomiting. Patient discharged home on stool softeners, MiraLAX as needed and advised to follow a full liquid diet for the next 1 to 2 days. Patient advised to report any severe abdominal pain, nausea, vomiting to their primary care physician. - Discharge Data Discharge Date: 01/10/21 Discharge Disposition: Home, Self-Care 01 Condition: Good - Referral to Home Health Primary Care Physician: Baldo Carpio MD - Discharge Diagnosis/Problem(s) (1) Hypertension SNOMED Code(s): 12476178 ICD Code: I10 - ESSENTIAL (PRIMARY) HYPERTENSION Status: Acute Priority: Medium (2) Small bowel obstruction SNOMED Code(s): 900935448 ICD Code: K56.609 - UNSP INTESTNL OBST, UNSP TO PARTIAL VERSUS COMPLETE OBST Status: Acute Priority: High (3) Hypokalemia SNOMED Code(s): 79682201 ICD Code: E87.6 - HYPOKALEMIA Status: Acute - Patient Instructions Diet: Heart Healthy Diet Activity: As Tolerated Showering/Bathing: May Shower Notify Provider of: Nausea and/or Vomiting Other/Special Instructions: -Patient to have blood pressure measured and take hydrochlorothiazide 25mg daily if blood pressure is elevated higher than normal. Follow up with your PCP and discuss necessity of this new medication. -Patient to take colace twice daily to soften stools. -Patient to take miralax at bedtime as needed for constipation - Discharge Plan Prescriptions/Med Rec: Docusate Sodium [Colace] 100 mg PO BID #20 cap hydroCHLOROthiazide [Hydrochlorothiazide] 25 mg PO DAILY 7 Days #7 tablet polyethylene glycoL 3350 [MiraLAX] 17 gm PO BEDTIME PRN #10 packet PRN Reason: Constipation Home Medications: Home Meds amLODIPine Besylate [Amlodipine Besylate] 10 mg PO QAM 11/24/14 [History] ramipriL [Altace] 20 mg PO DAILY 11/24/14 [History] Aspirin [Eros Aspirin EC] 81 mg PO DAILY 11/22/16 [History] Multivit-Min/FA/Lycopen/Lutein [Centrum Silver Tablet] 1 tab PO DAILY 11/22/16 [History] cloNIDine HCL [Catapres] 0.2 mg PO TID 11/22/16 [History] Sildenafil Citrate 50 mg PO ASDIRECTED PRN 11/25/18 [History] Docusate Sodium [Colace] 100 mg PO BID #20 cap 01/10/21 [Rx] hydroCHLOROthiazide [Hydrochlorothiazide] 25 mg PO DAILY 7 Days #7 tablet 01/10/21 [Rx] polyethylene glycoL 3350 [MiraLAX] 17 gm PO BEDTIME PRN #10 packet 01/10/21 [Rx] Patient Handouts: Docusate Sodium; Senna tablets or capsules, Bowel Obstruction, [id number], Hydrochlorothiazide, HCTZ Oral Capsules or Tablets, Polyethylene Glycol powder Forms: ED Department Discharge Referrals: Baldo Carpio MD [Primary Care Provider] - 01/18/21 10:30 am - Discharge Summary/Plan Comment DC Time >30 min.: Yes - General Info Date of Service: 01/10/21 - Review of Systems General: Denies: Fever, Chills Pulmonary: Denies: Shortness of Breath, Cough Cardiovascular: Denies: Chest Pain Gastrointestinal: Denies: Abdominal Pain, Nausea, Vomiting Neurological: Denies: Confusion Psychiatric: Denies: Confusion - Patient Data Vitals - Most Recent: Last Vital Signs Temp 97.7 F 01/10/21 08:22 Pulse 61 01/10/21 08:22 Resp 16 01/10/21 08:22 BP 166/81 H 01/10/21 09:24 Pulse Ox 93 L 01/10/21 08:22 Weight - Most Recent: 125.328 kg I&O - Last 24 hours: Intake & Output 01/09/21 01/10/21 01/10/21 22:59 06:59 14:59 Intake Total 2821 1850 Output Total 1695 1100 Balance 1126 750 Lab Results - Last 24 hrs: Laboratory Results - last 24 hr 01/09/21 01/09/21 01/09/21 Range/Units 12:35 16:54 22:05 WBC (4.0-11.0) K/uL RBC (4.50-5.90) M/uL Hgb (13.0-17.0) g/dL Hct (38.0-50.0) % MCV (80.0-98.0) fL MCH (27.0-32.0) pg MCHC (31.0-37.0) g/dL RDW Std Deviation (28.0-62.0) fl RDW Coeff of Unique (11.0-15.0) % Plt Count (150-400) K/uL MPV (7.40-12.00) fL Neut % (Auto) (48.0-80.0) % Lymph % (Auto) (16.0-40.0) % Hill % (Auto) (0.0-15.0) % Eos % (Auto) (0.0-7.0) % Baso % (Auto) (0.0-1.5) % Neut # (Auto) (1.4-5.7) K/uL Lymph # (Auto) (0.6-2.4) K/uL Hill # (Auto) (0.0-0.8) K/uL Eos # (Auto) (0.0-0.7) K/uL Baso # (Auto) (0.0-0.1) K/uL Nucleated RBC % /100WBC Nucleated RBCs # K/uL Sodium (136-148) mmol/L Potassium (3.5-5.1) mmol/L Chloride (98-107) mmol/L Carbon Dioxide (21.0-32.0) mmol/L BUN (7.0-18.0) mg/dL Creatinine (0.8-1.3) mg/dL Est Cr Clr Drug Dosing mL/min Estimated GFR (MDRD) ml/min Glucose (74-106) mg/dL POC Glucose 82 114 H 77 (60-110) mg/dL Calcium (8.5-10.1) mg/dL 01/10/21 01/10/21 01/10/21 Range/Units 01:34 05:30 05:30 WBC 9.07 (4.0-11.0) K/uL RBC 5.05 (4.50-5.90) M/uL Hgb 16.5 (13.0-17.0) g/dL Hct 47.2 (38.0-50.0) % MCV 93.5 (80.0-98.0) fL MCH 32.7 H (27.0-32.0) pg MCHC 35.0 (31.0-37.0) g/dL RDW Std Deviation 44.9 (28.0-62.0) fl RDW Coeff of Unique 13 (11.0-15.0) % Plt Count 235 (150-400) K/uL MPV 9.80 (7.40-12.00) fL Neut % (Auto) 69.9 (48.0-80.0) % Lymph % (Auto) 18.7 (16.0-40.0) % Hill % (Auto) 8.6 (0.0-15.0) % Eos % (Auto) 2.5 (0.0-7.0) % Baso % (Auto) 0.3 (0.0-1.5) % Neut # (Auto) 6.3 H (1.4-5.7) K/uL Lymph # (Auto) 1.7 (0.6-2.4) K/uL Hill # (Auto) 0.8 (0.0-0.8) K/uL Eos # (Auto) 0.2 (0.0-0.7) K/uL Baso # (Auto) 0.0 (0.0-0.1) K/uL Nucleated RBC % 0.0 /100WBC Nucleated RBCs # 0 K/uL Sodium 143 (136-148) mmol/L Potassium 3.2 L (3.5-5.1) mmol/L Chloride 106 (98-107) mmol/L Carbon Dioxide 27.7 (21.0-32.0) mmol/L BUN 5 L (7.0-18.0) mg/dL Creatinine 0.7 L (0.8-1.3) mg/dL Est Cr Clr Drug Dosing 110.44 mL/min Estimated GFR (MDRD) > 60.0 ml/min Glucose 105 (74-106) mg/dL POC Glucose 80 (60-110) mg/dL Calcium 8.5 (8.5-10.1) mg/dL 01/10/21 Range/Units 06:06 WBC (4.0-11.0) K/uL RBC (4.50-5.90) M/uL Hgb (13.0-17.0) g/dL Hct (38.0-50.0) % MCV (80.0-98.0) fL MCH (27.0-32.0) pg MCHC (31.0-37.0) g/dL RDW Std Deviation (28.0-62.0) fl RDW Coeff of Unique (11.0-15.0) % Plt Count (150-400) K/uL MPV (7.40-12.00) fL Neut % (Auto) (48.0-80.0) % Lymph % (Auto) (16.0-40.0) % Hill % (Auto) (0.0-15.0) % Eos % (Auto) (0.0-7.0) % Baso % (Auto) (0.0-1.5) % Neut # (Auto) (1.4-5.7) K/uL Lymph # (Auto) (0.6-2.4) K/uL Hill # (Auto) (0.0-0.8) K/uL Eos # (Auto) (0.0-0.7) K/uL Baso # (Auto) (0.0-0.1) K/uL Nucleated RBC % /100WBC Nucleated RBCs # K/uL Sodium (136-148) mmol/L Potassium (3.5-5.1) mmol/L Chloride (98-107) mmol/L Carbon Dioxide (21.0-32.0) mmol/L BUN (7.0-18.0) mg/dL Creatinine (0.8-1.3) mg/dL Est Cr Clr Drug Dosing mL/min Estimated GFR (MDRD) ml/min Glucose (74-106) mg/dL POC Glucose 112 H (60-110) mg/dL Calcium (8.5-10.1) mg/dL Med Orders - Current: Current Medications Amlodipine Besylate (Amlodipine 5 Mg Tab) 10 mg PO QAM [facility] Last Admin: 01/10/21 09:24 Dose: 10 mg Documented by: Clonidine HCl (Clonidine 0.1 Mg Tab) 0.2 mg PO TID [facility] Last Admin: 01/10/21 06:03 Dose: 0.2 mg Documented by: Hydrochlorothiazide (Hydrochlorothiazide 25 Mg Tab) 25 mg PO DAILY [facility] Last Admin: 01/10/21 09:24 Dose: 25 mg Documented by: Pantoprazole Sodium 40 mg/ (Sodium Chloride) 10 mls @ 300 mls/hr IV Q24H [facility] Last Admin: 01/09/21 20:57 Dose: 300 mls/hr Documented by: Potassium Chloride/Sodium Chloride (Normal Saline With 40 Meq Kcl) 1,000 mls @ 250 mls/hr IV ONETIME [facility] Stop: 01/10/21 11:59 Last Admin: 01/10/21 10:51 Dose: 250 mls/hr Documented by: Morphine Sulfate (Morphine 2 Mg/Ml Syringe) 2 mg IVPUSH Q3H PRN PRN Reason: Pain Last Admin: 01/07/21 18:15 Dose: 2 mg Documented by: Ondansetron HCl (Ondansetron 4 Mg/2 Ml Sdv) 4 mg IVPUSH Q4H PRN PRN Reason: Nausea/Vomiting Ramipril (Ramipril 10 Mg Cap) 20 mg PO DAILY [facility] Last Admin: 01/10/21 09:24 Dose: 20 mg Documented by: Sodium Chloride (Sodium Chloride 0.9% 10 Ml Syringe) 10 ml FLUSH ASDIRECTED PRN PRN Reason: Keep Vein Open Last Admin: 01/06/21 21:07 Dose: 10 ml Documented by: Sodium Chloride (Sodium Chloride 0.9% 2.5 Ml Syringe) 2.5 ml FLUSH ASDIRECTED PRN PRN Reason: Keep Vein Open Last Admin: 01/07/21 08:30 Dose: 2.5 ml Documented by: Discontinued Medications Clonidine HCl (Clonidine 0.1 Mg Tab) 0.2 mg PO TID [facility] Last Admin: 01/09/21 14:07 Dose: Not Given Documented by: Clonidine HCl (Clonidine 0.1 Mg Tab) 0.2 mg PO TID [facility] Al Hydroxide/Mg Hydroxide 15 (ml/ Lidocaine HCl 5 ml) 0 ml PO ONETIME ONE Stop: 01/06/21 20:49 Last Admin: 01/06/21 21:07 Dose: 1 each Documented by: Enalaprilat (Enalaprilat 1.25 Mg/Ml Sdv) 1.25 mg IVPUSH ONETIME ONE Stop: 01/07/21 13:21 Last Admin: 01/07/21 13:44 Dose: 1.25 mg Documented by: Enalaprilat (Enalaprilat 1.25 Mg/Ml Sdv) 1.25 mg IVPUSH ONETIME ONE Stop: 01/07/21 19:08 Last Admin: 01/07/21 20:10 Dose: 1.25 mg Documented by: Famotidine (Famotidine 20 Mg/2 Ml Sdv) 20 mg IVPUSH ONETIME ONE Stop: 01/06/21 20:49 Last Admin: 01/06/21 21:07 Dose: 20 mg Documented by: Gadobenate Dimeglumine (Gadobenate Dimeglumine 529 Mg/Ml 20 Ml Sdv) 20 ml IVPUSH ONETIME STA Stop: 01/09/21 14:11 Last Admin: 01/09/21 14:11 Dose: 20 ml Documented by: Hydralazine HCl (Hydralazine 20 Mg/Ml Sdv) 10 mg IVPUSH ONETIME ONE Stop: 01/07/21 19:08 Last Admin: 01/07/21 19:19 Dose: 10 mg Documented by: Sodium Chloride (Normal Saline) 1,000 mls @ 999 mls/hr IV .Bolus ONE Stop: 01/06/21 21:48 Last Admin: 01/06/21 21:07 Dose: 999 mls/hr Documented by: Sodium Chloride (Normal Saline) 1,000 mls @ 125 mls/hr IV ASDIRECTED [facility] Last Admin: 01/07/21 18:21 Dose: 125 mls/hr Documented by: Magnesium Sulfate (Magnesium Sulfate In Water 2 Gm/50 Ml) 2 gm in 50 mls @ 50 mls/hr IV ONETIME ONE Stop: 01/07/21 08:13 Last Admin: 01/07/21 08:31 Dose: 50 mls/hr Documented by: Sodium Chloride (Normal Saline) 1,000 mls @ 100 mls/hr IV ASDIRECTED [facility] Last Admin: 01/10/21 00:12 Dose: 100 mls/hr Documented by: Potassium Chloride/Sodium Chloride (Normal Saline With 40 Meq Kcl) 1,000 mls @ 250 mls/hr IV ONETIME ONE Stop: 01/08/21 14:14 Last Admin: 01/08/21 10:42 Dose: 250 mls/hr Documented by: Potassium Chloride/Sodium Chloride (Normal Saline With 40 Meq Kcl) 1,000 mls @ 250 mls/hr IV ONETIME ONE Stop: 01/09/21 11:59 Last Admin: 01/09/21 08:57 Dose: 250 mls/hr Documented by: Iopamidol (Iopamidol 755 Mg/Ml 500 Ml Multipack Bottle) 100 ml IVPUSH ONETIME STA Stop: 01/06/21 22:10 Last Admin: 01/06/21 22:10 Dose: 100 ml Documented by: Labetalol HCl (Labetalol 100 Mg/20 Ml Mdv) 20 mg IVPUSH ONETIME ONE; Protocol Stop: 01/07/21 12:40 Last Admin: 01/07/21 14:46 Dose: Not Given Documented by: Labetalol HCl (Labetalol 100 Mg/20 Ml Mdv) 20 mg IVPUSH Q4H PRN; Protocol PRN Reason: Hypertension Last Admin: 01/08/21 09:06 Dose: 20 mg Documented by: Labetalol HCl (Labetalol 100 Mg/20 Ml Mdv) 20 mg IVPUSH Q4H LUIS ENRIQUE; Protocol Last Admin: 01/09/21 09:39 Dose: 20 mg Documented by: Lorazepam (Lorazepam 2 Mg/Ml Sdv) 1 mg IVPUSH ONETIME ONE Stop: 01/08/21 21:01 Last Admin: 01/08/21 20:57 Dose: 1 mg Documented by: Lorazepam (Lorazepam 2 Mg/Ml Sdv) 1 mg IVPUSH BEDTIME ONE Stop: 01/09/21 21:01 Last Admin: 01/09/21 22:07 Dose: 1 mg Documented by: Morphine Sulfate (Morphine 4 Mg/Ml Syringe) 4 mg IVPUSH ONETIME ONE Stop: 01/06/21 20:49 Last Admin: 01/06/21 21:07 Dose: 4 mg Documented by: Non-Formulary Medication (Clonidine Hcl [Catapres]) 0.2 mg PO TID LUIS ENRIQUE Ondansetron HCl (Ondansetron 4 Mg/2 Ml Sdv) 4 mg IVPUSH ONETIME ONE Stop: 01/06/21 20:49 Last Admin: 01/06/21 21:07 Dose: 4 mg Documented by: - Exam General: Reports: Alert, Oriented Lungs: Reports: Clear to Auscultation, Normal Respiratory Effort Cardiovascular: Reports: Regular Rate, Regular Rhythm GI/Abdominal Exam: Soft, Non-Tender Extremities: No Pedal Edema Neurological: Reports: Normal Speech, Strength Equal Bilateral Psy/Mental Status: Reports: Alert <Erich,Hooria - Last Filed: 01/11/21 21:38> Discharge Summary - Hospital Course Free Text/Narrative:: I have seen and evaluated the patient and agree with the residents note unless specified in my note - Referral to Home Health Primary Care Physician: Baldo Carpio MD - Discharge Diagnosis/Problem(s) (1) Hypertension SNOMED Code(s): 31194913 ICD Code: I10 - ESSENTIAL (PRIMARY) HYPERTENSION Status: Acute Priority: Medium (2) Small bowel obstruction SNOMED Code(s): 365065517 ICD Code: K56.609 - UNSP INTESTNL OBST, UNSP TO PARTIAL VERSUS COMPLETE O BST Status: Acute Priority: High (3) Insomnia disorder SNOMED Code(s): 730992875 ICD Code: G47.00 - INSOMNIA, UNSPECIFIED Status: Acute - Patient Data Vitals - Most Recent: Last Vital Signs Temp 36.3 C 01/10/21 11:49 Pulse 63 01/10/21 11:49 Resp 16 01/10/21 11:49 BP 163/89 H 01/10/21 13:33 Pulse Ox 94 L 01/10/21 11:49 Med Orders - Current: Current Medications Discontinued Medications Amlodipine Besylate (Amlodipine 5 Mg Tab) 10 mg PO QAM [facility] Last Admin: 01/10/21 09:24 Dose: 10 mg Documented by: Clonidine HCl (Clonidine 0.1 Mg Tab) 0.2 mg PO TID [facility] Last Admin: 01/09/21 14:07 Dose: Not Given Documented by: Clonidine HCl (Clonidine 0.1 Mg Tab) 0.2 mg PO TID [facility] Clonidine HCl (Clonidine 0.1 Mg Tab) 0.2 mg PO TID [facility] Last Admin: 01/10/21 13:33 Dose: 0.2 mg Documented by: Al Hydroxide/Mg Hydroxide 15 (ml/ Lidocaine HCl 5 ml) 0 ml PO ONETIME ONE Stop: 01/06/21 20:49 Last Admin: 01/06/21 21:07 Dose: 1 each Documented by: Enalaprilat (Enalaprilat 1.25 Mg/Ml Sdv) 1.25 mg IVPUSH ONETIME ONE Stop: 01/07/21 13:21 Last Admin: 01/07/21 13:44 Dose: 1.25 mg Documented by: Enalaprilat (Enalaprilat 1.25 Mg/Ml Sdv) 1.25 mg IVPUSH ONETIME ONE Stop: 01/07/21 19:08 Last Admin: 01/07/21 20:10 Dose: 1.25 mg Documented by: Famotidine (Famotidine 20 Mg/2 Ml Sdv) 20 mg IVPUSH ONETIME ONE Stop: 01/06/21 20:49 Last Admin: 01/06/21 21:07 Dose: 20 mg Documented by: Gadobenate Dimeglumine (Gadobenate Dimeglumine 529 Mg/Ml 20 Ml Sdv) 20 ml IVPUSH ONETIME STA Stop: 01/09/21 14:11 Last Admin: 01/09/21 14:11 Dose: 20 ml Documented by: Hydralazine HCl (Hydralazine 20 Mg/Ml Sdv) 10 mg IVPUSH ONETIME ONE Stop: 01/07/21 19:08 Last Admin: 01/07/21 19:19 Dose: 10 mg Documented by: Hydrochlorothiazide (Hydrochlorothiazide 25 Mg Tab) 25 mg PO DAILY LUIS ENRIQUE Last Admin: 01/10/21 09:24 Dose: 25 mg Documented by: Sodium Chloride (Normal Saline) 1,000 mls @ 999 mls/hr IV .Bolus ONE Stop: 01/06/21 21:48 Last Admin: 01/06/21 21:07 Dose: 999 mls/hr Documented by: Sodium Chloride (Normal Saline) 1,000 mls @ 125 mls/hr IV ASDIRECTED LUIS ENRIQUE Last Admin: 01/07/21 18:21 Dose: 125 mls/hr Documented by: Magnesium Sulfate (Magnesium Sulfate In Water 2 Gm/50 Ml) 2 gm in 50 mls @ 50 mls/hr IV ONETIME ONE Stop: 01/07/21 08:13 Last Admin: 01/07/21 08:31 Dose: 50 mls/hr Documented by: Pantoprazole Sodium 40 mg/ (Sodium Chloride) 10 mls @ 300 mls/hr IV Q24H [facility] Last Admin: 01/09/21 20:57 Dose: 300 mls/hr Documented by: Sodium Chloride (Normal Saline) 1,000 mls @ 100 mls/hr IV ASDIRECTED [facility] Last Admin: 01/10/21 00:12 Dose: 100 mls/hr Documented by: Potassium Chloride/Sodium Chloride (Normal Saline With 40 Meq Kcl) 1,000 mls @ 250 mls/hr IV ONETIME ONE Stop: 01/08/21 14:14 Last Admin: 01/08/21 10:42 Dose: 250 mls/hr Documented by: Potassium Chloride/Sodium Chloride (Normal Saline With 40 Meq Kcl) 1,000 mls @ 250 mls/hr IV ONETIME ONE Stop: 01/09/21 11:59 Last Admin: 01/09/21 08:57 Dose: 250 mls/hr Documented by: Potassium Chloride/Sodium Chloride (Normal Saline With 40 Meq Kcl) 1,000 mls @ 250 mls/hr IV ONETIME [facility] Stop: 01/10/21 11:59 Last Admin: 01/10/21 10:51 Dose: 250 mls/hr Documented by: Iopamidol (Iopamidol 755 Mg/Ml 500 Ml Multipack Bottle) 100 ml IVPUSH ONETIME STA Stop: 01/06/21 22:10 Last Admin: 01/06/21 22:10 Dose: 100 ml Documented by: Labetalol HCl (Labetalol 100 Mg/20 Ml Mdv) 20 mg IVPUSH ONETIME ONE; Protocol Stop: 01/07/21 12:40 Last Admin: 01/07/21 14:46 Dose: Not Given Documented by: Labetalol HCl (Labetalol 100 Mg/20 Ml Mdv) 20 mg IVPUSH Q4H PRN; Protocol PRN Reason: Hypertension Last Admin: 01/08/21 09:06 Dose: 20 mg Documented by: Labetalol HCl (Labetalol 100 Mg/20 Ml Mdv) 20 mg IVPUSH Q4H LUIS ENRIQUE; Protocol Last Admin: 01/09/21 09:39 Dose: 20 mg Documented by: Lorazepam (Lorazepam 2 Mg/Ml Sdv) 1 mg IVPUSH ONETIME ONE Stop: 01/08/21 21:01 Last Admin: 01/08/21 20:57 Dose: 1 mg Documented by: Lorazepam (Lorazepam 2 Mg/Ml Sdv) 1 mg IVPUSH BEDTIME ONE Stop: 01/09/21 21:01 Last Admin: 01/09/21 22:07 Dose: 1 mg Documented by: Morphine Sulfate (Morphine 4 Mg/Ml Syringe) 4 mg IVPUSH ONETIME ONE Stop: 01/06/21 20:49 Last Admin: 01/06/21 21:07 Dose: 4 mg Documented by: Morphine Sulfate (Morphine 2 Mg/Ml Syringe) 2 mg IVPUSH Q3H PRN PRN Reason: Pain Last Admin: 01/07/21 18:15 Dose: 2 mg Documented by: Non-Formulary Medication (Clonidine Hcl [Catapres]) 0.2 mg PO TID LUIS ENRIQUE Ondansetron HCl (Ondansetron 4 Mg/2 Ml Sdv) 4 mg IVPUSH ONETIME ONE Stop: 01/06/21 20:49 Last Admin: 01/06/21 21:07 Dose: 4 mg Documented by: Ondansetron HCl (Ondansetron 4 Mg/2 Ml Sdv) 4 mg IVPUSH Q4H PRN PRN Reason: Nausea/Vomiting Ramipril (Ramipril 10 Mg Cap) 20 mg PO DAILY [facility] Last Admin: 01/10/21 09:24 Dose: 20 mg Documented by: Sodium Chloride (Sodium Chloride 0.9% 10 Ml Syringe) 10 ml FLUSH ASDIRECTED PRN PRN Reason: Keep Vein Open Last Admin: 01/06/21 21:07 Dose: 10 ml Documented by: Sodium Chloride (Sodium Chloride 0.9% 2.5 Ml Syringe) 2.5 ml FLUSH ASDIRECTED PRN PRN Reason: Keep Vein Open Last Admin: 01/07/21 08:30 Dose: 2.5 ml Documented by:
[2021-01-10 11:50] VITALS: PULSE 63
[2021-01-10 13:35] VITALS: BP 163/89
== END 2021-01-10 16:40 | disposition home or self-care (01) | DRG 390 ==
LOC: MW.ED 20:27 → MW.MS 01-07 00:52
PROVIDERS: ADMIT Internal Medicine; ATTEND Internal Medicine
PROC: 0D9670Z Drainage of Stomach with Drainage Device, Via Natural or Artificial Opening (ICD-10-PCS; principal; 2021-01-07)
DX: K56.609 Unspecified intestinal obstruction, unspecified as to partial versus complete obstruction (principal); I10 Essential (primary) hypertension; E78.5 Hyperlipidemia, unspecified; E87.6 Hypokalemia; G47.00 Insomnia, unspecified; E83.42 Hypomagnesemia; G89.29 Other chronic pain; M54.9 Dorsalgia, unspecified; E66.9 Obesity, unspecified; G47.30 Sleep apnea, unspecified; H54.7 Unspecified visual loss; Z20.822 Contact with and (suspected) exposure to COVID-19; Z79.82 Long term (current) use of aspirin; Z79.899 Other long term (current) drug therapy; Z88.8 Allergy status to other drugs, medicaments and biological substances; Z86.010 Personal history of colon polyps; Z98.890 Other specified postprocedural states; Z68.36 Body mass index [BMI] 36.0-36.9, adult
CPT/HCPCS: 36415; 71045; 74177; 80053; 81001; 83605; 83690; 83735; 84484; 85025; 93005; A9270 ×2; J2270; J2405; J3490; J7030; Q9967; U0002; 43752; 74183; 74183-26; 80048; 82962; 84100; 93010; 94660; 96374; 96375; 97802; 99284; 99285-25; A9577; C9113; J0360; J2060; J3475; J3480

== ENCOUNTER 2021-12-23 20:37 | Emergency (ER) | payer MEDICARE, BC ==
[2021-12-23] MEDS ORDERED: Sodium Chloride 0.9% 10 ML Syringe FLUSH PRN (21:20)
[2021-12-23] MEDS ORDERED: Sodium Chloride 0.9% 2.5 ML Syringe FLUSH PRN (21:20)
[2021-12-23 22:17] LABS: BLOOD UREA NITROGEN,BUN 16 mg/dL (7.0-18.0); CARBON DIOXIDE,CO2 26.2 mmol/L (21.0-32.0); CHLORIDE,CL 103 mmol/L (98-107); GLUCOSE RANDOM 110 mg/dL (74-106); POTASSIUM,K 3.5 mmol/L (3.5-5.1); SODIUM,NA 143 mmol/L (136-148)
[2021-12-23 23:06] VITALS: BP 179/86; PULSE 80
== END 2021-12-23 23:05 | disposition home or self-care (01) ==
LOC: MW.ED 20:37
DX: R31.0 Gross hematuria (principal); I10 Essential (primary) hypertension; E66.9 Obesity, unspecified; Z68.36 Body mass index [BMI] 36.0-36.9, adult; Z88.8 Allergy status to other drugs, medicaments and biological substances; Z79.899 Other long term (current) drug therapy; Z79.82 Long term (current) use of aspirin
CPT/HCPCS: 36415; 74176; 74176-26; 80053; 81001; 85025; 99283-25

== ENCOUNTER 2021-12-26 10:04 | Emergency (ER) | payer MEDICARE, BC ==
[2021-12-26] MEDS: Ketorolac 30 MG/ML SDV IVPUSH ONE (10:48)
[2021-12-26] MEDS: Sodium Chloride 0.9% 2.5 ML Syringe FLUSH PRN (10:49)
[2021-12-26] MEDS: Ondansetron 4 MG/2 ML SDV IVPUSH ONE (10:49)
[2021-12-26] MEDS: Sodium Chloride 0.9% 1,000 ML IV ONE (10:49)
[2021-12-26] MEDS: Sodium Chloride 0.9% 10 ML Syringe FLUSH PRN (10:49)
[2021-12-26 11:27] LABS: BLOOD UREA NITROGEN,BUN 13 mg/dL (7.0-18.0); CARBON DIOXIDE,CO2 23.7 mmol/L (21.0-32.0); CHLORIDE,CL 100 mmol/L (98-107); GLUCOSE RANDOM 119 mg/dL (74-106); POTASSIUM,K 3.4 mmol/L (3.5-5.1); SODIUM,NA 136 mmol/L (136-148)
[2021-12-26 12:25] VITALS: BP 176/94; PULSE 71
== END 2021-12-26 12:15 | disposition home or self-care (01) ==
LOC: MW.ED 10:04
DX: R10.32 Left lower quadrant pain (principal); R31.0 Gross hematuria; I10 Essential (primary) hypertension; E66.9 Obesity, unspecified; Z68.36 Body mass index [BMI] 36.0-36.9, adult; Z79.82 Long term (current) use of aspirin; Z88.8 Allergy status to other drugs, medicaments and biological substances
CPT/HCPCS: 80053; 81001; 83735; 85025; 96374; 96375; 99284; J1885; J2405; J7030

== ENCOUNTER 2023-01-14 23:49 | Inpatient (IN) | payer MEDICARE, BC ==
[2023-01-15] MEDS ORDERED: Sodium Chloride 0.9% 2.5 ML Syringe FLUSH PRN (00:52)
[2023-01-15] MEDS ORDERED: Sodium Chloride 0.9% 10 ML Syringe FLUSH PRN (00:52)
[2023-01-15] MEDS ORDERED: HYDROmorphone 1 MG/ML Syringe IVPUSH ONE (00:52)
[2023-01-15] MEDS ORDERED: Ondansetron 4 MG/2 ML SDV IVPUSH ONE (00:52)
[2023-01-15 02:02] LABS: CARBON DIOXIDE,CO2 24.9 mmol/L (21.0-32.0); POTASSIUM,K 4.1 mmol/L (3.5-5.1)
[2023-01-15] MEDS ORDERED: Iopamidol 755 MG/ML 500 ML Multipack Bottle IVPUSH STA (02:28)
[2023-01-15] MEDS ORDERED: Lactated Ringers 1,000 ML IV SCH (04:45)
[2023-01-15] MEDS ORDERED: Ondansetron 4 MG/2 ML SDV IVPUSH PRN (06:33)
[2023-01-15] MEDS ORDERED: Morphine 2 MG/ML SYRINGE IVPUSH PRN (06:34)
[2023-01-15] MEDS: Sodium Chloride 0.9% 1,000 ML IV SCH ×3 (06:46→22:20)
[2023-01-15 08:12] LABS: CARBON DIOXIDE,CO2 25.8 mmol/L (21.0-32.0); POTASSIUM,K 3.9 mmol/L (3.5-5.1)
[2023-01-15] MEDS ORDERED: Enalaprilat 1.25 MG/ML SDV IVPUSH SCH (10:15)
[2023-01-15] MEDS ORDERED: cloNIDine 0.2 MG/Day Transdermal Patch TRDERM SCH (11:00)
[2023-01-15] MEDS ORDERED: Heparin Sodium 5,000 Units/ML Vial SUBCUT SCH (12:15)
[2023-01-15] MEDS: Enalaprilat 1.25 MG/ML SDV IVPUSH SCH ×2 (14:18→18:20)
[2023-01-16] MEDS: Enalaprilat 1.25 MG/ML SDV IVPUSH SCH ×2 (00:22→06:23)
[2023-01-16] MEDS ORDERED: hydrALAZINE 20 MG/ML SDV IVPUSH PRN ×2 (01:36→01:53)
[2023-01-16 06:12] LABS: CARBON DIOXIDE,CO2 25.9 mmol/L (21.0-32.0); POTASSIUM,K 3.3 mmol/L (3.5-5.1)
[2023-01-16] MEDS: Sodium Chloride 0.9% 1,000 ML IV SCH ×2 (06:21→17:51)
[2023-01-16] MEDS ORDERED: NS with KCl 40mEq 1,000 ML IV SCH (10:30)
[2023-01-16] MEDS ORDERED: Enalaprilat 1.25 MG/ML SDV IVPUSH PRN (10:30)
[2023-01-16] MEDS: amLODIPine 5 MG Tab PO SCH (10:47)
[2023-01-16] MEDS: cloNIDine 0.1 MG Tab PO SCH ×2 (12:30→21:39)
[2023-01-16] MEDS ORDERED: cloNIDine 0.1 MG Tab PO SCH (12:30)
[2023-01-17] MEDS: cloNIDine 0.1 MG Tab PO SCH ×3 (06:12→21:35)
[2023-01-17 06:50] LABS: CARBON DIOXIDE,CO2 27.2 mmol/L (21.0-32.0); POTASSIUM,K 3.7 mmol/L (3.5-5.1)
[2023-01-17] MEDS: amLODIPine 5 MG Tab PO SCH (09:46)
[2023-01-17] MEDS ORDERED: Bisacodyl 10 MG Supp RECTAL ONE (14:39)
[2023-01-18] MEDS: cloNIDine 0.1 MG Tab PO SCH (06:15)
[2023-01-18] MEDS: amLODIPine 5 MG Tab PO SCH (09:37)
[2023-01-18 11:11] VITALS: BP 155/79; PULSE 58
== END 2023-01-18 12:20 | disposition home or self-care (01) | DRG 390 ==
LOC: MW.ED 23:49 → MW.MS 01-15 04:32
PROVIDERS: ADMIT Internal Medicine; ATTEND Internal Medicine
DX: K56.609 Unspecified intestinal obstruction, unspecified as to partial versus complete obstruction (principal); Z88.8 Allergy status to other drugs, medicaments and biological substances; I10 Essential (primary) hypertension; M54.9 Dorsalgia, unspecified; G89.29 Other chronic pain; N40.0 Benign prostatic hyperplasia without lower urinary tract symptoms; K43.9 Ventral hernia without obstruction or gangrene; Z20.822 Contact with and (suspected) exposure to COVID-19; G47.30 Sleep apnea, unspecified; K59.00 Constipation, unspecified; E66.9 Obesity, unspecified; Z68.37 Body mass index [BMI] 37.0-37.9, adult; Z79.82 Long term (current) use of aspirin; Z79.899 Other long term (current) drug therapy
CPT/HCPCS: 36415; 74177; 80053; 83690; 85025; 96374; 96375; 99285; J1170; J2405; J3490 ×2; Q9967; 74019; 74019-26; 80048; 82947; 99221; 99231; 99238; A9270-GY; J0360; J3480; J7030; U0002

== ENCOUNTER 2024-02-28 09:50 | Day surgery (SDC) | payer MEDICARE, BC ==
[~2024-02-28 09:50] MED LIST changes: +Desflurane 240 ML Bottle ONE; -Lactated Ringers 1,000 ML IV SCH
[2024-02-28] MEDS: Lactated Ringers 1,000 ML IV SCH (10:45)
[2024-02-28] MEDS ORDERED: propofoL 50 ML ONE (11:18)
[2024-02-28] MEDS ORDERED: Lactated Ringers 1,000 ML IV SCH (12:15)
[2024-02-28 12:35] VITALS: BP 156/78; PULSE 51
== END 2024-02-28 13:25 | disposition home or self-care (01) ==
LOC: MW.SDS 09:50
PROVIDERS: ATTEND Surgery
DX: Z12.11 Encounter for screening for malignant neoplasm of colon (principal); I10 Essential (primary) hypertension; G47.30 Sleep apnea, unspecified; E66.9 Obesity, unspecified; D12.6 Benign neoplasm of colon, unspecified; K56.609 Unspecified intestinal obstruction, unspecified as to partial versus complete obstruction; Z68.33 Body mass index [BMI] 33.0-33.9, adult; Z86.010 Personal history of colon polyps; Z80.0 Family history of malignant neoplasm of digestive organs; Z88.8 Allergy status to other drugs, medicaments and biological substances; Z79.82 Long term (current) use of aspirin; Z79.899 Other long term (current) drug therapy; Z98.890 Other specified postprocedural states
CPT/HCPCS: G0105; J2704; J7120; 00812; 99100